=== PATIENT | male | born 1950 | race Two or more races ===

== ENCOUNTER 2024-10-20 11:05 | Inpatient (IN) | payer OTHER ==
[~2024-10-20] VITALS: Ht 172.7 cm; Wt 84.0 kg
[2024-10-20] VITALS (44 sets, daily range): BP systolic 118–184; BP diastolic 43–129; PULSE 63–100; RESP 9–21; TEMP 97.6–98.2; O2SAT 90–100
--- NOTE | 2024-10-20 11:26 | ED.PDOC ---
History of Present Illness HPI Comments 74 y/o M, with a history of cholelithiasis, DM, and noncompliance with medications, is BIBA from private residence for c/c nonradiating, left sided chest pain. Per EMS report, patient endorses on sudden, unprovoked, and atraumatic onset of pressure-like pain, while performing daily yard work, this morning. Patient is stated to have then enter his home and taken 1x ASA prior to calling EMS. Patient was found hypertensive and hyperglycemic, with a blood glucose of 305, on scene and found multiple times in STEMI via environmental monitoring technician en route. Patient received an 2x additional dosages of ASA and 1x NTG by EMS personnel prior to arrival. No endorsement of any recent stressors, additional strenuous activities, sick contacts, or additional pertinent events or history. No reported shortness of breath, palpitations, nausea, vomiting, or further acute associated symptoms. Time Seen by MD: 11:05 Reviewed Notes: Nurses Notes, Body Shop Floorperson Notes, Medications, Allergies Allergies: Coded Allergies: NO KNOWN ALLERGIES (Unverified , 10/20/24) Information Source: Patient, Emergency Med Personnel Mode of Arrival: EMS Severity: Moderate Timing: Hours Duration: Since onset Prehospital treatment: 12 Lead EKG, Accucheck, ASA, Harness Rigger, NTG Past Medical History PAST MEDICAL HISTORY: DM, Gallstones Past Medical History (Other): noncompliance with medications All Other Systems: Reviewed and Negative (Comprehensive review of systems are negative unless otherwise stated in HPI) Physical Exam General Appearance: Moderate Distress HEENT: Normal ENT Inspection, Pharynx Normal, TMs Normal Neck: Full Range of Motion, Non-Tender, Normal, Normal Inspection Respiratory: Chest Non-Tender, Lungs Clear, No Accessory Muscle Use, No Respiratory Distress, Normal Breath Sounds Cardiovascular: No Edema, No JVD, No Murmur, No Gallop, Normal Peripheral Pulses, Regular Rate/Rhythm Breast Exam: Deferred Gastrointestinal: No Organomegaly, Non Tender, No Pulsatile Mass, Normal Bowel Sounds, Soft Genitalia: Deferred Pelvic: Deferred Rectal: Deferred Extremities: No calf tenderness, Normal capillary refill, Normal inspection, Normal range of motion, Non-tender, No pedal edema Musculoskeletal : Apperance: Normal Neurologic: Alert, interior mechanic II-XII nml as Tested, No Motor Deficits, Normal Affect, Normal Mood, No Sensory Deficits Cerebellar Function: NOT DONE Reflexes: NOT DONE Skin: Dry, Normal Color, Warm Peripheral Pulses: 3+ Radial (R), 3+ Radial (L) Lymphatic: No Adenopathy Was a procedure done? Was a procedure done?: No EKG EKG : Pulse Rate (adult): 72 [place]: Normal Block: None Hypertrophy: None ST: New, Ant, Infarct Differential Dx Considerations may include: SC, PE, ACS, URI, pneumonia, angina, anxiety, cholelithiasis, cholecystitis, gastritis, among others X-Ray, Labs, Meds, VS Vital Signs Date Time Temp Pulse Resp B/P (MAP) Pulse Ox O2 Delivery O2 Flow Rate FiO2 10/20/24 11:26 72 10/20/24 11:25 97.6 84 16 159/92 (114) 98 97.6 10/20/24 11:13 72 10/20/24 11:05 72 18 97 Room Air* 0 21 10/20/24 11:05 97.6 76 18 140/87 97 97.6 Lab Test 10/20/24 11:20 Range/Units White Blood Count 7.2 4.4-10.8 10^3/uL Red Blood Count 4.38 L 4.5-5.90 10^6/uL Hemoglobin 15.8 13.5-17.5 g/dL Hematocrit 44.8 41.0-53.0 % Mean Corpuscular Volume 102.1 H 80.0-100.0 fL Mean Corpuscular Hemoglobin 36.1 H 28.0-32.0 pg Mean Corpuscular Hemoglobin Concent 35.3 32.0-36.0 g/dL Red Cell Distribution Width 14.2 11.8-14.3 % Platelet Count 243 140-450 10^3/uL Mean Platelet Volume 7.6 6.9-10.8 fL Neutrophils (%) (Auto) 78.2 37.0-80.0 % Lymphocytes (%) (Auto) 13.8 10.0-50.0 % Monocytes (%) (Auto) 7.1 0.0-12.0 % Eosinophils (%) (Auto) 0.6 0.0-7.0 % Basophils (%) (Auto) 0.3 0.0-2.0 % Neutrophils # (Auto) 5.6 1.6-8.6 10 ^3/uL Lymphocytes # (Auto) 1.0 0.4-5.4 10 ^3/uL Monocytes # (Auto) 0.5 0-1.3 10 ^3/uL Eosinophils # (Auto) 0 0-0.8 10 ^3/uL Basophils # (Auto) 0 0-0.2 10 ^3/uL Nucleated Red Blood Cells 0.0 % Prothrombin Time 11.4 9.3-11.8 sec Prothrombin Time INR 1.08 0.9-1.15 Activated Partial Thromboplast Time 23.8 L 24.5-34.5 SEC Sodium Level 140 136-145 mmol/L Potassium Level 4.1 3.5-5.1 mmol/L Chloride Level 103 98-107 mmol/L Carbon Dioxide Level 24 20-31 mmol/L Anion Gap 13 5-15 Blood Urea Nitrogen 11 9-23 mg/dL Creatinine 1.05 0.700-1.30 mg/dL Glomerular Filtration Rate Calc 75 >90 mL/min BUN/Creatinine Ratio 10.5 10.0-20.0 Serum Glucose 284 H 74-106 mg/dL Calcium Level 9.1 8.7-10.4 mg/dL Magnesium Level 1.9 1.6-2.6 mg/dL Total Bilirubin 1.5 H 0.2-1.0 mg/dL Aspartate Amino Transferase (AST) 28 13-40 U/L Alanine Aminotransferase (ALT) 22 7-40 U/L Alkaline Phosphatase 81 46-116 U/L Troponin I High Sensitivity 45 </=54 ng/L Total Protein 6.5 5.7-8.2 g/dL Albumin 4.0 3.2-4.8 g/dL Current Medications Medications (Trade) Dose Ordered Sig/Phyllis Route Start Time Stop Time Status Last Admin Heparin Sodium (Porcine) 5,000 units ONCE ONCE IV 10/20/24 11:30 10/20/24 12:46 DC 10/20/24 11:39 Patient alert. Complaining of chest discomfort. Vitals stable. Answering questions. EKG reviewed does show STEMI. Was given heparin. Spoke with Cardiology. Was taken to circus laborer. [place] approved inpatient admission [id number]. Explained to the patient. Continue monitoring. Time of 1ST Reevaluation: 11:35 Reevaluation 1ST: Unchanged Patient Education/Counseling: Diagnosis, Treatment, Other Family Education/Counseling: No Family Present SEPSIS Sepsis Screen Physician Orders Chest Xray 1 View (10/20/24 11:10) Harness Rigger (10/20/24 11:16) Blood Pressure (10/20/24 11:16) Pulse Oximetry (10/20/24 11:16) Sodium Chloride Lock (Saline Lock Ns) (10/20/24 14:00) Electrocardigram (10/20/24 11:16) Aspirin Tablet (10/22/24 10:00) Oxygen Per Hour (10/20/24 11:16) Cardiac Rehabilitation - Outpa (10/20/24 ) Comprehensive Metabolic Panel (10/22/24 04:00) Troponin-I Hs (10/20/24 12:16) Troponin-I Hs (10/20/24 14:16) Vital Signs Date Time Temp Pulse Resp B/P (MAP) Pulse Ox O2 Delivery O2 Flow Rate FiO2 10/20/24 11:26 72 10/20/24 11:25 97.6 84 16 159/92 (114) 98 97.6 10/20/24 11:13 72 10/20/24 11:05 72 18 97 Room Air* 0 21 10/20/24 11:05 97.6 76 18 140/87 97 97.6 Laboratory Tests Test 10/20/24 11:20 White Blood Count 7.2 10^3/uL (4.4-10.8) Medications Medications Dose Ordered Sig/Phyllis Route Start Time Stop Time Status Last Admin Dose Admin Heparin Sodium (Porcine) 5,000 units ONCE ONCE IV 10/20/24 11:30 10/20/24 12:46 DC 10/20/24 11:39 Departure 1 Departure Time of Disposition: 11:31 Impression: Primary Impression: STEMI (ST elevation myocardial infarction) Qualified Codes: I21.3 - ST elevation (STEMI) myocardial infarction of unspecified site Disposition: ADMITTED INPATIENT Admit to: ICU Condition: Guarded Critical Care Note Critical Care Time?: Yes (45 min-critical care time only) Stability Stability form required: No Heart Score Heart Score: Heart Score Response (Comments) Value History Highly Suspicious [address]-Deviation 2 Age >65 2 Risk Factors 1 or 2 risk factors 1 Troponin N/A 0 Total 7 I personally scribed for SAMI OCHOA MD ([email or web address]) on 10/20/24 at 11:26. Electronically submitted by Timothy Pemberton [email or web address]). SAMI OCHOA MD Oct 20, 2024 11:26
[2024-10-20] MEDS ORDERED: NITROGLYCERIN 0.4 MG SL TAB SL PRN (11:30)
[2024-10-20] MEDS ORDERED: SODIUM CHLORIDE 0.9% 1,000 ML IV SCH (11:30)
--- NOTE | 2024-10-20 11:35 | DVHHP2 ---
History of Present Illness Reason for Visit: STEMI History of Present Illness 74 y/o M, with a history of cholelithiasis, DM, and noncompliance with medications, is BIBA from private residence for c/c nonradiating, left sided chest pain. Per EMS report, patient endorses on sudden, unprovoked, and atraumatic onset of pressure-like pain, while performing daily yard work, this morning. Patient is stated to have then enter his home and taken 1x ASA prior to calling EMS. Patient was found hypertensive and hyperglycemic, with a blood glucose of 305, on scene and found multiple times in STEMI via air sampling and monitoring en route. Patient received an 2x additional dosages of ASA and 1x NTG by EMS personnel prior to arrival. No endorsement of any recent stressors, additional strenuous activities, sick contacts, or additional pertinent events or history. No reported shortness of breath, palpitations, nausea, vomiting, or further acute associated symptoms. Endocrine: Diabetes Past Surgical History: None Family History: None Smoke: No ALCOHOL: none Drugs: None Lives: with Family Domestic Violence: Neg Review of Systems Constitutional: Yes: Sweats Cardiovascular: Chest Pain Allergies: Coded Allergies: NO KNOWN ALLERGIES (Unverified , 10/20/24) Medications Current Medications Medications Dose Ordered Sig/Phyllis Route Start Time Stop Time Status Last Admin Dose Admin Sodium Chloride 10 ml Q8HR IV 10/20/24 14:00 UNV Aspirin 81 mg DAILY PO 10/22/24 10:00 UNV Exam Vital Signs Vital Signs Date Time Temp Pulse Resp B/P (MAP) Pulse Ox O2 Delivery O2 Flow Rate FiO2 10/20/24 11:26 74 General Appearance: Alert, Oriented X3, Cooperative, No acute distress HEENT: Atraumatic, PERRLA, Mucous membr. moist/pink Respiratory: Clear to auscultation, Normal air movement Cardiovascular: Normal S1, Normal S2, No murmurs, Other (ST elevation) Abdominal: Normal bowel sounds, Soft, No tenderness, No hepatospenomegaly, No masses Extremities: No clubbing, No cyanosis, No edema, Normal pulses, No tende rness/swelling Skin: No rashes, No breakdown Neuro: Normal gait, Normal speech, Strength at 5/5 X4 ext, Normal tone, Sensation intact, Cranial nerves 3-12 NL Psych/Mental Status: Mental status NL SEPSIS Sepsis Screen Physician Orders Chest Xray 1 View (9/6/25 11:10) Complete Blood Count (10/20/24 11:16) Comprehensive Metabolic Panel (10/20/24 11:16) Magnesium (10/20/24 11:16) Chest Portable (10/20/24 11:16) Guest Services Ambassador (10/20/24 11:16) Blood Pressure (10/20/24 11:16) Pulse Oximetry (10/20/24 11:16) Sodium Chloride Lock (Saline Lock Ns) (10/20/24 14:00) Aspirin Tablet (10/20/24 11:30) Electrocardigram (10/20/24 11:16) Aspirin Tablet (10/22/24 10:00) Oxygen Per Hour (10/20/24 11:16) Troponin-I Hs (10/20/24 11:16) Cardiac Rehabilitation - Outpa (10/20/24 ) Comprehensive Metabolic Panel (10/22/24 04:00) Troponin-I Hs (10/20/24 12:16) Troponin-I Hs (10/20/24 14:16) Heparin Sodium (Porcine) (10/20/24 11:30) Vital Signs Date Time Temp Pulse Resp B/P (MAP) Pulse Ox O2 Delivery O2 Flow Rate FiO2 10/20/24 11:26 74 10/20/24 11:13 74 Assessment/Plan Assessment/Plan STEMI--patient presents to ED via EMS with chief complaint of chest pain that started this morning while working in the backyard Upon evaluation patient states started off as a cold sweat then progressed to chest pain Patient denied previous cardiac history/workup Patient states history of type 2 DM but is currently not taking any medications ER physician spoke to Dr. 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 Total critical care time spent 32 minutes to evaluate, review labs and discussion of plan Discussed plan of care with the patient in which all questions concerns have been addressed Plan discussed with: Patient Date of Service: Oct 20, 2024 Billing Provider: DMITRY CHAUHAN Common Visit Codes: 34450-[id number] INP/OBS CARE (HIGH), [id number] CARE 30- 74 MIN DMITRY CHAUHAN VP CARDIOVASCULAR SERVICE LINE Oct 20, 2024 11:35
[2024-10-20] MEDS: HEPARIN IN NS 1000Units/500mL 1,500 ML ONE (11:39)
[2024-10-20] MEDS: HEPARIN SODIUM (PORCINE) 5000 UNITS/ML 1ML VIAL IV ONE ×2 (11:39→13:30)
[2024-10-20] MEDS: LIDOCAINE 2%HCL (LOCAL ANESTH.) INJ 20ML MDV ONE (11:39)
[2024-10-20] MEDS: IODIXANOL 320MG/ML 100ML BTL IV ONE (11:39)
[2024-10-20] MEDS: ANGIOMAX 250 MG VIAL IV ONE ×2 (11:43→12:22)
[2024-10-20] MEDS: MIDAZOLAM HCL 2MG/2ML 2ml VIAL (1mg/ml) ONE (11:44)
[2024-10-20] MEDS: fentaNYL CITRATE 100 MCG/2 ML VL ONE (11:44)
[2024-10-20] MEDS: SODIUM CHL 0.9% 50 ML ONE ×2 (11:44→12:22)
--- NOTE | 2024-10-20 11:52 | DVH ---
XY CHEST XRAY 1 VIEW, HISTORY: CHEST PAIN COMPARISON: None None TECHNICAL DATA: 1 view of the chest was obtained. FINDINGS: Lines and tubes: None Cardiomediastinal silhouette: normal Pulmonary vasculature: normal Lung expansion: normal Lung airspace: normal Lung interstitium: normal Pleura: normal Pneumothorax: no Bones: Unremarkable Other: no IMPRESSION: No acute intrathoracic abnormality.
[2024-10-20 11:57] LABS: Hemoglobin 15.8 g/dL (13.5-17.5); Mean Corpuscular Hemoglobin 36.1 pg (28.0-32.0); Nucleated Red Blood Cells % 0.0 %
[2024-10-20 11:59] LABS: Hematocrit 44.8 % (41.0-53.0); Mean Corpuscular Volume 102.1 fL (80.0-100.0)
[2024-10-20 12:13] LABS: Alanine Aminotransferase 22 U/L (7-40); Albumin 4.0 g/dL (3.2-4.8); Alkaline Phosphatase 81 U/L (46-116); Anion Gap 13 (5-15); BUN/Creatinine Ratio 10.5 (10.0-20.0); Blood Urea Nitrogen 11 mg/dL (9-23); Calcium 9.1 mg/dL (8.7-10.4); Carbon Dioxide 24 mmol/L (20-31); Chloride 103 mmol/L (98-107); Magnesium 1.9 mg/dL (1.6-2.6); Potassium 4.1 mmol/L (3.5-5.1); Sodium 140 mmol/L (136-145); Total Protein 6.5 g/dL (5.7-8.2)
[2024-10-20 12:15] LABS: Bilirubin, Total 1.5 mg/dL (0.2-1.0); Glucose 284 mg/dL (74-106)
[2024-10-20] MEDS: EPTIFIBATIDE INJ (2MG/ML) 10ML VIAL IV ONE (12:26)
[2024-10-20] MEDS: NOREPINEPHRINE 8 MG/250ML KIT 250 ML IV ONE (12:32)
[2024-10-20] MEDS: HEPARIN DRIP/D5W 100UNITS/ML 250 ML IV ONE (12:59)
[2024-10-20] MEDS: TICAGRELOR 90 MG TAB ONE (13:16)
[2024-10-20] MEDS: EPTIFIBATIDE DRIP(0.75MG/ML) 100 ML IV ONE (13:23)
[2024-10-20] MEDS: EPTIFIBATIDE DRIP(0.75MG/ML) 100 ML IV SCH (13:30)
[2024-10-20] MEDS ORDERED: HEPARIN DRIP/D5W 100UNITS/ML 250 ML IV SCH (13:30)
[2024-10-20 13:55] LABS: INR 1.08 (0.9-1.15); Partial Thromboplastin Time 23.8 SEC (24.5-34.5); Prothrombin Time 11.4 sec (9.3-11.8)
[2024-10-20] MEDS ORDERED: DEXTROSE (50%) 50ML SYRG IV PRN (14:00)
[2024-10-20] MEDS: HEPARIN DRIP/D5W 100UNITS/ML 250 ML IV SCH (14:00)
[2024-10-20] MEDS: SODIUM CHLOR 0.9% PF (SALINE LOCK) 10ML VIAL/SYR IV SCH (14:27)
--- NOTE | 2024-10-20 14:41 | DVH ---
CHEST RADIOGRAPH Indication: Balloon pump placement Technique: Single frontal view of the chest was obtained Comparison: XY CHEST XRAY 1 VIEW on DOS: 10/20/24 FINDINGS: Lines and Tubes: None Lungs: No focal consolidation. Pleura: No effusion. No pneumothorax. Cardiomediastinal contours: Unremarkable Bones: No acute osseous abnormality. IMPRESSION: No acute cardiopulmonary disease. Balloon pump in proper position
[2024-10-20 15:50] LABS: Urine Protein, UAD 1+ (Negative)
[2024-10-20] MEDS: ONDANSETRON HCL 4 MG/2 ML VIAL IV PRN (16:04)
[2024-10-20] MEDS: ACCU-CHEK COMFORT CURVE STRIP VI SCH (17:00)
[2024-10-20] MEDS: InsuLIN REG 1unit/0.01ml Soln (100units/ml) SC SCH ×2 (18:00→22:00)
[2024-10-20] MEDS: LABETALOL HCL 20 MG/4 ML VL IV PRN (18:02)
[2024-10-20] MEDS: ACETAMINOPHEN 325 MG TAB PO PRN (19:56)
[2024-10-20] MEDS: ATORVASTATIN 20 MG TAB PO SCH (21:46)
[2024-10-20] MEDS: TICAGRELOR 90 MG TAB PO SCH (21:46)
[2024-10-20] MEDS: LISINOPRIL 5 MG TAB PO SCH (21:47)
[2024-10-20] MEDS ORDERED: ZOLPIDEM TARTRATE 5 MG TAB PO PRN (22:00)
[2024-10-20] MEDS: METOPROLOL TARTRATE 25 MG TAB PO SCH (23:07)
--- NOTE | 2024-10-20 23:48 | DVHINCON2 ---
Date of service: Oct 20, 2024 Referring Physician Dena Reason for Consultation STEMI History of Present Illness This is a 74 year old male with a past medical history of cholelithiasis, DM, and noncompliance with medications who was brought in by ambulance with complaints of nonradiating, left sided chest pain. Per EMS report, patient endorses on sudden, unprovoked, and atraumatic onset of pressure-like pain, while performing his daily yard work, this morning. Patient is stated to have went inside taken 1 Aspirin prior to calling EMS. Patient was found on scene to be hypertensive and hyperglycemic, with a blood glucose of 305, on scene and found multiple times in STEMI via rn cardiac cath en route. Patient received 2 additional dosages of Aspirin and 1 Nitroglycerin by EMS personnel prior to arr ival. EKG onfiremd STEMI and code STEMI was called. I evaluated the patient at bedside within a few minutes. CBC abd BMP are WNL. Troponin 45. Chest x-ray shows NAD. Patient was admitted to the hospital. I am asked to consult on this patient. Family History: Patient reports no known family medical history. Allergies: Coded Allergies: NO KNOWN ALLERGIES (Unverified , 10/20/24) Current Medications Current Medications Medications (Trade) Dose Ordered Sig/Phyllis Route PRN Reason Start Time Stop Time Status Last Admin Sodium Chloride (Saline Lock Ns) 10 ml Q8HR IV 10/20/24 14:00 10/20/24 22:00 Aspirin 81 mg DAILY PO 10/22/24 10:00 Cancel Sodium Chloride 1,000 ml @ 100 mls/hr Q10H IV 10/20/24 11:30 10/20/24 14:37 DC Ondansetron HCl (Zofran) 4 mg Q4HP PRN IV NAUSEA / VOMITING 10/20/24 11:30 10/20/24 16:04 Acetaminophen (Tylenol Tablet) 650 mg Q6HP PRN PO PAIN SCALE 1-3 OR TEMP>100.4 10/20/24 11:30 10/20/24 19:56 Nitroglycerin (Ntrostat Sublingual) 0.4 mg Q5MINP PRN SL FOR CHEST PAIN 10/20/24 11:30 Morphine Sulfate 2 mg Q30M PRN IV FOR CHEST PAIN 10/20/24 11:30 Eptifibatide 100 ml @ 13 mls/hr Q7H42M IV 10/20/24 13:30 10/20/24 19:59 Heparin Sodium/ Dextrose 250 ml @ 10.08 mls/ hr Q24H IV 10/20/24 13:30 10/20/24 13:55 DC Metoprolol Tartrate (Lopressor Tablet) 25 mg BID PO 10/20/24 22:00 10/20/24 23:07 Ticagrelor (Brilinta) 90 mg BID PO 10/20/24 22:00 10/20/24 21:46 Aspirin 81 mg DAILY PO 10/21/24 10:00 Diagnostic Test (Pha) (Accu-Chek Comfort Curve T) 1 strip ACHS 10/20/24 17:00 10/20/24 22:00 Insulin Human Regular (InsuLIN R) HS SC 10/20/24 22:00 10/20/24 22:00 Insulin Human Regular (InsuLIN R) AC SC 10/20/24 17:00 10/20/24 18:00 Dextrose 50 ml UD PRN IV Blood Sugar LESS THAN 60 10/20/24 14:00 Atorvastatin Calcium (Lipitor) 80 mg HS PO 10/20/24 22:00 10/20/24 21:46 Heparin Sodium/ Dextrose 250 ml @ 5 mls/hr Q24H IV 10/20/24 14:00 10/20/24 14:00 Pantoprazole Sodium (Protonix) 40 mg DAILY IV 10/21/24 10:00 Lisinopril (Zestril Tablet) 5 mg BID PO 10/20/24 22:00 10/20/24 21:47 Labetalol HCl (Labetalol HCl) 10 mg Q2HPRN PRN IV SBP>150 10/20/24 14:45 10/20/24 18:02 Zolpidem Tartrate (Ambien) 5 mg HSPRN PRN PO FOR INSOMNIA 10/20/24 22:00 Review of Systems All Other Systems: Reviewed and Negative (Comprehensive review of systems are negative unless otherwise stated in HPI) Vital Signs Vital Signs Date Time Temp Pulse Resp B/P (MAP) Pulse Ox O2 Delivery O2 Flow Rate FiO2 10/20/24 23:07 72 135/60 10/20/24 22:00 18 96 Room Air* 0 21 10/20/24 19:15 98.2 98.2 Physical Exam GENERAL: Alert and oriented x 3. No acute distress. EYES: PERRL, EOMI. Anicteric. HENT: Moist mucous membranes. LUNGS: Clear to auscultation bilaterally. CARDIOVASCULAR: Regular rate and rhythm. ABDOMEN: Soft, nontender and nondistended. EXTREMITIES: No edema. NEUROLOGIC: No focal neurological deficits. SKIN: Warm, dry. Labs/Diagnostic Data Labs Test 10/20/24 21:49 10/20/24 15:27 10/20/24 11:20 Range/Units POC Glucose 261 H 70-106 mg/dl Urine Color Light-yellow Yellow Urine Clarity Clear Clear Urine pH 5.5 5.0-9.0 Urine Specific Coin 1.046 H 1.001-1.035 Urine Protein 1+ H Negative Urine Ketones 2+ H Negative Urine Blood 3+ H Negative /uL Urine Nitrite Negative Negative Urine Bilirubin Negative Negative Urine Urobilinogen Normal Negative mg/dL Urine Leukocyte Esterase Negative Negative /uL Urine RBC 11 0 - 3 /hpf Urine Microscopic WBC 1 0-3 /HPF Urine Squamous Epithelial Cells None seen <5 /hpf Urine Bacteria None seen None Seen /hpf Urine Hyaline Casts Few 0 - 2 /lpf Urine Glucose 4+ H Normal mg/dL White Blood Count 7.2 4.4-10.8 10^3/uL Red Blood Count 4.38 L 4.5-5.90 10^6/uL Hemoglobin 15.8 13.5-17.5 g/dL Hematocrit 44.8 41.0-53.0 % Mean Corpuscular Volume 102.1 H 80.0-100.0 fL Mean Corpuscular Hemoglobin 36.1 H 28.0-32.0 pg Mean Corpuscular Hemoglobin Concent 35.3 32.0-36.0 g/dL Red Cell Distribution Width 14.2 11.8-14.3 % Platelet Count 243 140-450 10^3/uL Mean Platelet Volume 7.6 6.9-10.8 fL Neutrophils (%) (Auto) 78.2 37.0-80.0 % Lymphocytes (%) (Auto) 13.8 10.0-50.0 % Monocytes (%) (Auto) 7.1 0.0-12.0 % Eosinophils (%) (Auto) 0.6 0.0-7.0 % Basophils (%) (Auto) 0.3 0.0-2.0 % Neutrophils # (Auto) 5.6 1.6-8.6 10 ^3/uL Lymphocytes # (Auto) 1.0 0.4-5.4 10 ^3/uL Monocytes # (Auto) 0.5 0-1.3 10 ^3/uL Eosinophils # (Auto) 0 0-0.8 10 ^3/uL Basophils # (Auto) 0 0-0.2 10 ^3/uL Nucleated Red Blood Cells 0.0 % Prothrombin Time 11.4 9.3-11.8 sec Prothrombin Time INR 1.08 0.9-1.15 Activated Partial Thromboplast Time 23.8 L 24.5-34.5 SEC Sodium Level 140 136-145 mmol/L Potassium Level 4.1 3.5-5.1 mmol/L Chloride Level 103 98-107 mmol/L Carbon Dioxide Level 24 20-31 mmol/L Anion Gap 13 5-15 Blood Urea Nitrogen 11 9-23 mg/dL Creatinine 1.05 0.700-1.30 mg/dL Glomerular Filtration Rate Calc 75 >90 mL/min BUN/Creatinine Ratio 10.5 10.0-20.0 Serum Glucose 284 H 74-106 mg/dL Calcium Level 9.1 8.7-10.4 mg/dL Magnesium Level 1.9 1.6-2.6 mg/dL Total Bilirubin 1.5 H 0.2-1.0 mg/dL Aspartate Amino Transferase (AST) 28 13-40 U/L Alanine Aminotransferase (ALT) 22 7-40 U/L Alkaline Phosphatase 81 46-116 U/L Troponin I High Sensitivity 45 </=54 ng/L Total Protein 6.5 5.7-8.2 g/dL Albumin 4.0 3.2-4.8 g/dL Assessment STEMI. DM. Medical noncompliance. Plan/Recommendation I agree with your ongoing assessment and care of plan. Emergent cardiac cath. Risks and benefits were discussed with the patient. Aspirin, Lipitor, Metoprolol. Heparin drip per pharmacy. IV Labetalol for SBP > 150. Lisinopril. Morphine for pain management. GI prophylactics. Additional plan as per the hospital course. Critical care time of 90 minutes provided to include time spent evaluation of patient at bedside, when appropriate patient/family education for diagnosis, treatment plan, review of pertinent medical information and discussion of care with specialty providers and PCP. Plan discussed with: Patient DIDI SWANSON MD Oct 20, 2024 23:21
[2024-10-21] VITALS (96 sets, daily range): BP systolic 107–167; BP diastolic 36–88; PULSE 6–82; RESP 9–21; TEMP 97.4–98.1; O2SAT 86–100
[2024-10-21] MEDS: PANTOPRAZOLE 40 MG/10 ML VIAL INJ IV SCH (00:45)
[2024-10-21] MEDS: MORPHINE SULFATE INJ 2 MG/ml SYRG IV PRN ×2 (00:46→12:30)
[2024-10-21 04:09] LABS: Hematocrit 43.9 % (41.0-53.0); Hemoglobin 15.9 g/dL (13.5-17.5); Mean Corpuscular Hemoglobin 36.4 pg (28.0-32.0); Mean Corpuscular Volume 100.8 fL (80.0-100.0); Nucleated Red Blood Cells % 0.0 %
[2024-10-21 04:11] LABS: Chloride 102 mmol/L (98-107); Potassium 4.0 mmol/L (3.5-5.1); Sodium 136 mmol/L (136-145)
[2024-10-21 04:12] LABS: Anion Gap 8 (5-15); Calcium 9.3 mg/dL (8.7-10.4); Carbon Dioxide 26 mmol/L (20-31)
[2024-10-21 04:16] LABS: INR 1.11 (0.9-1.15); Partial Thromboplastin Time 31.3 SEC (24.5-34.5); Prothrombin Time 11.6 sec (9.3-11.8)
[2024-10-21 04:17] LABS: BUN/Creatinine Ratio 17.7 (10.0-20.0); Blood Urea Nitrogen 17 mg/dL (9-23)
[2024-10-21 04:18] LABS: Magnesium 2.0 mg/dL (1.6-2.6)
[2024-10-21 04:44] LABS: Glucose 228 mg/dL (74-106)
--- NOTE | 2024-10-21 05:40 | DVHOP ---
DATE OF SURGERY: 10/20/2024 TECHNIQUES PERFORMED: * Insertion of the 6-Trinidadian arterial line from the right femoral artery. * Under fluoroscopic guidance, code STEMI. * Management of conscious sedation. * Left coronary angiography. * Mechanical thrombectomy of the left anterior descending artery with the help of the Hines catheter. * Balloon angioplasty of the proximal region of the left anterior descending artery with 2.5 x 15 mm length semi-compliant balloon. * Balloon angioplasty of the left anterior descending artery in the proximal, mid, and distal region with 2.5 x 25 mm length semi-compliant balloon. * Stenting and angioplasty of the proximal region of the left anterior descending artery with 3.0 x 22 mm in length [place] drug-eluting stent of [employer]. * Intravascular ultrasound of the left main and also the left anterior descending artery. * Balloon angioplasty of the left anterior descending artery proximal stent with 3.0 x 15 mm length and noncompliant balloon and mid artery size to 3.30 mm in size. * Intracoronary administration of 10 mL of Integrilin and intracoronary administration of the multiple doses of the nicardipine and the nitroglycerin. * Emergency placement of the intra-aortic balloon pump under fluoroscopic guidance and supervision. COMPLICATIONS: None. ASSISTANTS: Assisted by Adrienne Nuñez Joshua and Rani. INDICATIONS: * The patient has a code STEMI, acute anterior wall myocardial infarction. * 100% occlusion of the left anterior descending artery in the proximal region, JEREMY grade 0 flow. DESCRIPTION OF PROCEDURE: The risks and benefits all have been explained to the patient and understood very well. We have changed the 6-Trinidadian short arterial line to long 6-Trinidadian arterial line. Initially, we have put the guiding catheter XB 3.5, unable to engage it. Subsequently, we put a XB 4, unable to engage it. Subsequently, now we have put a 6-Trinidadian 4.5 guiding catheter and the left coronary angiography also has been done in a standard manner. Subsequently, the patient was started on Angiomax and then we passed a Runthrough wire. After putting the Runthrough wire, the Hines catheter thrombectomy was done a few times. About 20 mL of blood was aspirated. The artery did not open up after doing the mechanical thrombectomy. Subsequently, the balloon 2.5 x 15 mm length semi-compliant balloon was passed and a balloon angioplasty was done in the proximal region of the left anterior descending artery, but it was not able to restore the blood flow. Subsequently, 2.5 x 25 mm length of long semi-compliant balloon was passed and the balloon angioplasty was done in the proximal, mid, and distal region of the left anterior descending artery by taking the balloon gradually up to 8 and 9 and to 13 atmosphere. Balloon had been discontinued and angiography was done and blood flow in the left anterior descending artery had been restored very well. Now, we put a 3.0 x 22 mm in length [place] drug-eluting stent of [employer] deployed from the proximal to mid region of the left anterior descending artery and gradually it had been taken up to the 13 atmosphere. Inflated for 21 seconds x2 and the balloon had been deflated and angiography was done and the result was satisfactory. Subsequently, intravascular ultrasound also had been done. After doing the intravascular ultrasound, we noted that we need to still slightly expand the stent. So meanwhile, the patient was given intracoronary 10 mL of the Integrilin. The patient was given nicardipine, nitroglycerin, and subsequently the noncompliant balloon was passed and a balloon angioplasty was done in the proximal, mid, and distal region of the stent, taken the balloon up to the 27 atmosphere. The whole artery site was made to 3.30 mm in size and the procedure went very well. Subsequently, the balloon wire all had been discontinued. the patient is completely pain free. During this procedure, it has been noted that the patient's blood pressure was dropping down, so I had to put him on the Levophed drip. The decision has been made to put a balloon pump because currently the patient is dependent on the Levophed and it was a proximal left anterior descending artery, which was difficult to do the intervention. Now, subsequently, the 6-Trinidadian arterial line had been exchanged to the 8-Trinidadian arterial line and the intra-aortic balloon pump has been passed. After putting the balloon pump, intercostal space and had been sensing and capturing very well. The procedure was done under fluoroscopy. Arterial line had been. The balloon pump has been connected to the intra-aortic balloon pump line also. It will put to 1:1 augmentation. The lines had been sutured. CONCLUSION: The left anterior descending artery proximally 100% acutely occluded, JEREMY grade 0 flow and post procedure is JEREMY grade 3 flow, 100% widely open. No spasm. No dissection. No thrombosis. PLAN OF ACTION: At this time, * Aspirin. * Brilinta 90 mg b.i.d. * Metoprolol. * Lipitor. * Diabetes control. After discussion with the patient and his , to the patient. Yazmin Haddad MD MP/ROSALVA/SARINA TID: [id number] RECEIPT: [id number] MTDD
--- NOTE | 2024-10-21 05:44 | DVH ---
CHEST RADIOGRAPH Indication: IABP Technique: Single frontal view of the chest was obtained Comparison: XY CHEST XRAY 1 VIEW on DOS: 10/20/24, XY CHEST XRAY 1 VIEW on DOS: 10/20/24 IMPRESSION: Intra-aortic balloon pump radiopacity in the region of the aortic arch. The heart appears enlarged. The lungs appear clear without focal airspace opacity, effusion, or pneumothorax.
--- NOTE | 2024-10-21 05:44 | DVHOP ---
DATE OF SURGERY: 10/20/2024 TECHNIQUE PERFORMED: * Code STEMI. * Insertion of a 6-[place]an long arterial line in the right femoral artery under fluoroscopy. * Left heart cath. * Left ventriculogram. * [place] selective left and right coronary artery angiography. COMPLICATIONS: None. ASSISTANTS: Adrienne Nuñez Joshua and Belle. INDICATIONS: Acute anterior wall myocardial infarction, post STEMI. DESCRIPTION OF PROCEDURE: Risks and benefits were discussed had been explained, seen urgently, within 15 minutes. Risks, benefits, and alternatives all had been explained to the patient. The patient had been urgently brought to the tin can laborer. The right groin was shaved, was cleaned with soap and Betadine. IV Versed and fentanyl were given. A 6-Venezuelan arterial line also had been placed in a standard manner. We have put JR4 catheter and the right coronary angiography was done and subsequently at the end of the procedure, the left ventriculogram was done in the CABRERA view with total of 20 mL of dye. Post LV gram, left ventricular angiography had been performed. With the help of the JL4.5, 6-[place]enezuelan guiding catheter, the left coronary angiography was done. IMPRESSION: * Normal left main. * Left anterior descending artery proximally is 100% acutely blocked. JEREMY grade 0 flow. * Circumflex and obtuse marginal arteries all have been normal. * The right coronary artery is a very large dominant artery and the posterior descending artery is smaller. The branch is normal. * The posterolateral branch is a very large branch, 99% block has been noted in its mid region. The left ventricular ejection fraction is in the range of 35%. There is a remarkable hypokinesis of the whole anterior wall, apical wall, apical inferior wall, slightly dilated left ventricle. PLAN OF ACTION: Advised to undergo the intervention on the left anterior descending artery. Yazmin Haddad MD MP/RHIANNON/AMI TID: [id number] RECEIPT: [id number] JACOBO
[2024-10-21] MEDS: INSULIN LISPRO (HUMAN) 100 UNITS/ML ML SC SCH ×3 (06:52→21:35)
[2024-10-21] MEDS: ACCU-CHEK COMFORT CURVE STRIP VI SCH (06:53)
[2024-10-21] MEDS ORDERED: INSULIN LISPRO (HUMAN) 100 UNITS/ML ML SC SCH ×2 (07:00)
[2024-10-21] MEDS ORDERED: PANTOPRAZOLE 40 MG/10 ML VIAL INJ IV SCH (10:00)
--- NOTE | 2024-10-21 10:44 | DVHINCON2 ---
Date of service: Oct 21, 2024 History of Present Illness 74yo M w/ hx of cholelithiasis, type II DM, medication noncompliance who presented to hospital with chest pain. Upon EMS arrival pt found to have ST elevations in monitor technician. NTG and ASA administered en route. Patient also found to be hypertensive and hyperglycemic en route. Patient underwent LHC showing 100% proximal blockage of LAD. Plan for angioplasty. Past Medical History Problems Medical Problems: (1) STEMI (ST elevation myocardial infarction) Status: Acute Past Surgical History Past Surgical History Medical Problems: (1) STEMI (ST elevation myocardial infarction) Status: Acute Past Surgical History Medical Problems: (1) STEMI (ST elevation myocardial infarction) Status: Acute Family History: Patient reports no known family medical history. Allergies: Coded Allergies: NO KNOWN ALLERGIES (Unverified , 10/20/24) Current Medications Current Medications Medications (Trade) Dose Ordered Sig/Phyllis Route PRN Reason Start Time Stop Time Status Last Admin Sodium Chloride (Saline Lock Ns) 10 ml Q8HR IV 10/20/24 14:00 10/21/24 06:00 Aspirin 81 mg DAILY PO 10/22/24 10:00 Cancel Sodium Chloride 1,000 ml @ 100 mls/hr Q10H IV 10/20/24 11:30 10/20/24 14:37 DC Ondansetron HCl (Zofran) 4 mg Q4HP PRN IV NAUSEA / VOMITING 10/20/24 11:30 10/20/24 16:04 Acetaminophen (Tylenol Tablet) 650 mg Q6HP PRN PO PAIN SCALE 1-3 OR TEMP>100.4 10/20/24 11:30 10/20/24 19:56 Nitroglycerin (Ntrostat Sublingual) 0.4 mg Q5MINP PRN SL FOR CHEST PAIN 10/20/24 11:30 Morphine Sulfate 2 mg Q30M PRN IV FOR CHEST PAIN 10/20/24 11:30 Eptifibatide 100 ml @ 13 mls/hr Q7H42M IV 10/20/24 13:30 10/21/24 08:56 Heparin Sodium/ Dextrose 250 ml @ 10.08 mls/ hr Q24H IV 10/20/24 13:30 10/20/24 13:55 DC Metoprolol Tartrate (Lopressor Tablet) 25 mg BID PO 10/20/24 22:00 10/21/24 08:56 Ticagrelor (Brilinta) 90 mg BID PO 10/20/24 22:00 10/21/24 08:56 Aspirin 81 mg DAILY PO 10/21/24 10:00 10/21/24 08:56 Diagnostic Test (Pha) (Accu-Chek Comfort Curve T) 1 strip ACHS 10/20/24 17:00 10/21/24 00:47 DC 10/20/24 22:00 Insulin Human Regular (InsuLIN R) HS SC 10/20/24 22:00 10/21/24 00:22 DC 10/20/24 22:00 Insulin Human Regular (InsuLIN R) AC SC 10/20/24 17:00 10/21/24 00:22 DC 10/20/24 18:00 Dextrose 50 ml UD PRN IV Blood Sugar LESS THAN 60 10/20/24 14:00 Atorvastatin Calcium (Lipitor) 80 mg HS PO 10/20/24 22:00 10/20/24 21:46 Heparin Sodium/ Dextrose 250 ml @ 5 mls/hr Q24H IV 10/20/24 14:00 10/20/24 14:00 Pantoprazole Sodium (Protonix) 40 mg DAILY IV 10/21/24 10:00 10/21/24 00:22 DC Lisinopril (Zestril Tablet) 5 mg BID PO 10/20/24 22:00 10/21/24 08:57 Labetalol HCl (Labetalol HCl) 10 mg Q2HPRN PRN IV SBP>150 10/20/24 14:45 10/20/24 18:02 Zolpidem Tartrate (Ambien) 5 mg HSPRN PRN PO FOR INSOMNIA 10/20/24 22:00 Pantoprazole Sodium (Protonix) 40 mg BID IV 10/21/24 00:15 10/21/24 08:55 Morphine Sulfate 1 mg Q6HP PRN IV MODERATE PAIN (4-6 PAIN SCALE) 10/21/24 00:15 10/21/24 10:12 Insulin Human Lispro (HumaLOG) ACHS SC 10/21/24 07:00 Cancel Insulin Human Lispro (HumaLOG) ACHS SC 10/21/24 07:00 10/21/24 00:49 DC Diagnostic Test (Pha) (Accu-Chek Comfort Curve T) 1 strip ACHS 10/21/24 07:00 10/21/24 06:53 Insulin Human Lispro (HumaLOG) HS SC 10/21/24 22:00 Insulin Human Lispro (HumaLOG) AC SC 10/21/24 07:00 10/21/24 06:52 Review of Systems Negative except that which is stated in HPI Vital Signs Vital Signs Date Time Temp Pulse Resp B/P (MAP) Pulse Ox O2 Delivery O2 Flow Rate FiO2 10/21/24 10:15 6 10/21/24 10:12 14 143/88 10/21/24 10:00 96 Room Air* 0 21 10/21/24 08:00 97.7 97.7 Physical Exam Gen - no acute distress HEENT - no thyromegaly CV - RRR, no m/r/g Resp - CTAB Ext - no edema Labs/Diagnostic Data Labs Test 10/21/24 06:49 10/21/24 03:33 10/20/24 15:27 10/20/24 11:20 Range/Units POC Glucose 244 H 70-106 mg/dl White Blood Count 12.6 #H 4.4-10.8 10^3/uL Red Blood Count 4.35 L 4.5-5.90 10^6/uL Hemoglobin 15.9 13.5-17.5 g/dL Hematocrit 43.9 41.0-53.0 % Mean Corpuscular Volume 100.8 H 80.0-100.0 fL Mean Corpuscular Hemoglobin 36.4 H 28.0-32.0 pg Mean Corpuscular Hemoglobin Concent 36.1 H 32.0-36.0 g/dL Red Cell Distribution Width 14.2 11.8-14.3 % Platelet Count 239 140-450 10^3/uL Mean Platelet Volume 7.8 6.9-10.8 fL Neutrophils (%) (Auto) 88.7 H 37.0-80.0 % Lymphocytes (%) (Auto) 5.0 L 10.0-50.0 % Monocytes (%) (Auto) 6.3 0.0-12.0 % Eosinophils (%) (Auto) 0.0 0.0-7.0 % Basophils (%) (Auto) 0.0 0.0-2.0 % Neutrophils # (Auto) 11.2 H 1.6-8.6 10 ^3/uL Lymphocytes # (Auto) 0.6 0.4-5.4 10 ^3/uL Monocytes # (Auto) 0.8 0-1.3 10 ^3/uL Eosinophils # (Auto) 0 0-0.8 10 ^3/uL Basophils # (Auto) 0 0-0.2 10 ^3/uL Nucleated Red Blood Cells 0.0 % Prothrombin Time 11.6 9.3-11.8 sec Prothrombin Time INR 1.11 0.9-1.15 Activated Partial Thromboplast Time 31.3 24.5-34.5 SEC Sodium Level 136 136-145 mmol/L Potassium Level 4.0 3.5-5.1 mmol/L Chloride Level 102 98-107 mmol/L Carbon Dioxide Level 26 20-31 mmol/L Anion Gap 8 5-15 Blood Urea Nitrogen 17 9-23 mg/dL Creatinine 0.96 0.700-1.30 mg/dL Glomerular Filtration Rate Calc 84 >90 mL/min BUN/Creatinine Ratio 17.7 10.0-20.0 Serum Glucose 228 H 74-106 mg/dL Calcium Level 9.3 8.7-10.4 mg/dL Magnesium Level 2.0 1.6-2.6 mg/dL Urine Color Light-yellow Yellow Urine Clarity Clear Clear Urine pH 5.5 5.0-9.0 Urine Specific [place] 1.046 H 1.001-1.035 Urine Protein 1+ H Negative Urine Ketones 2+ H Negative Urine Blood 3+ H Negative /uL Urine Nitrite Negative Negative Urine Bilirubin Negative Negative Urine Urobilinogen Normal Negative mg/dL Urine Leukocyte Esterase Negative Negative /uL Urine RBC 11 0 - 3 /hpf Urine Microscopic WBC 1 0-3 /HPF Urine Squamous Epithelial Cells None seen <5 /hpf Urine Bacteria None seen None Seen /hpf Urine Hyaline Casts Few 0 - 2 /lpf Urine Glucose 4+ H Normal mg/dL Total Bilirubin 1.5 H 0.2-1.0 mg/dL Aspartate Amino Transferase (AST) 28 13-40 U/L Alanine Aminotransferase (ALT) 22 7-40 U/L Alkaline Phosphatase 81 46-116 U/L Troponin I High Sensitivity 45 </=54 ng/L Total Protein 6.5 5.7-8.2 g/dL Albumin 4.0 3.2-4.8 g/dL Assessment # STEMI # Type II DM with hyperglycemia # Coronary artery disease # HLD # HTN - Glargine 6 units daily - Lispro 2 units tidac - Moderate intensity SSI lispro tidac, qhs - POC BG tidac, qhs - Hypoglycemia protocol - Order A1c - Diabetic diet Plan discussed with: Patient SANTO EASLEY MD Oct 21, 2024 10:44
--- NOTE | 2024-10-21 11:13 | DVHPN2 ---
Subjective The patient is seen and examined at bedside. Complain of chest pain despite morphine. Reviewed: Care Plan, H&P, Labs, Medications, Previous Orders, Radiology Changes from previous H/P or p: No Changes Cardiovascular: Chest Pain Objective Vitals Vital Signs Date Time Temp Pulse Resp B/P (MAP) Pulse Ox O2 Delivery O2 Flow Rate FiO2 10/21/24 11:00 63 10/21/24 10:42 16 135/48 10/21/24 10:00 96 Room Air* 0 21 10/21/24 08:00 97.7 97.7 Intake/Output Intake and Output 10/21/24 07:00 Intake Total 1024 ml Output Total 1005 ml Balance 19 ml Intake Oral 705 ml IV Total 319 ml Output Urine Total 1005 ml General Appearance: Alert, Cooperative, mild distress HEENT: Atraumatic, PERRLA, EOMI, Mucous membr. moist/pink Neck: Supple Lungs: Clear to auscultation, Normal air movement Cardiovascular: Regular rate, Normal S1, Normal S2, No murmurs, Gallops, Rubs Abdomen: Normal bowel sounds, Soft, No tenderness Neuro: Cranial nerves 3-12 NL Psych/Mental Status: Mental status NL Medications Current Medications Medications Dose Ordered Sig/Phyllis Route Start Time Stop Time Status Last Admin Dose Admin Sodium Chloride 10 ml Q8HR IV 10/20/24 14:00 10/21/24 06:00 10 ML Aspirin 81 mg DAILY PO 10/22/24 10:00 Cancel Ondansetron HCl 4 mg Q4HP PRN IV 10/20/24 11:30 10/20/24 16:04 4 MG Acetaminophen 650 mg Q6HP PRN PO 10/20/24 11:30 10/20/24 19:56 650 MG Nitroglycerin 0.4 mg Q5MINP PRN SL 10/20/24 11:30 Morphine Sulfate 2 mg Q30M PRN IV 10/20/24 11:30 Eptifibatide 100 ml @ 13 mls/hr Q7H42M IV 10/20/24 13:30 10/21/24 08:56 13 MLS/HR Metoprolol Tartrate 25 mg BID PO 10/20/24 22:00 10/21/24 08:56 25 MG Ticagrelor 90 mg BID PO 10/20/24 22:00 10/21/24 08:56 90 MG Aspirin 81 mg DAILY PO 10/21/24 10:00 10/21/24 08:56 81 MG Dextrose 50 ml UD PRN IV 10/20/24 14:00 Atorvastatin Calcium 80 mg HS PO 10/20/24 22:00 10/20/24 21:46 80 MG Heparin Sodium/ Dextrose 250 ml @ 5 mls/hr Q24H IV 10/20/24 14:00 10/20/24 14:00 5 MLS/HR Lisinopril 5 mg BID PO 10/20/24 22:00 10/21/24 08:57 5 MG Labetalol HCl 10 mg Q2HPRN PRN IV 10/20/24 14:45 10/20/24 18:02 10 MG Zolpidem Tartrate 5 mg HSPRN PRN PO 10/20/24 22:00 Pantoprazole Sodium 40 mg BID IV 10/21/24 00:15 10/21/24 08:55 40 MG Morphine Sulfate 1 mg Q6HP PRN IV 10/21/24 00:15 10/21/24 10:12 1 MG Insulin Human Lispro ACHS NM 10/21/24 07:00 Cancel Diagnostic Test (Pha) 1 strip ACHS 10/21/24 07:00 10/21/24 06:53 1 STRIP Insulin Human Lispro HS NM 10/21/24 22:00 Insulin Human Lispro AC NM 10/21/24 07:00 10/21/24 06:52 6 UNITS Insulin Glargine 6 units DAILY@1000 NM 10/21/24 11:00 UNV Insulin Human Lispro 2 units AC NM 10/21/24 11:30 UNV Laboratory Results Laboratory Tests 10/21/24 03:33 Chemistry Test 10/20/24 11:20 10/21/24 03:33 Albumin 4.0 g/dL (3.2-4.8) Calcium Level 9.1 mg/dL (8.7-10.4) 9.3 mg/dL (8.7-10.4) Magnesium Level 1.9 mg/dL (1.6-2.6) 2.0 mg/dL (1.6-2.6) Total Protein 6.5 g/dL (5.7-8.2) Coagulation Test 10/20/24 11:20 10/21/24 03:33 Prothrombin Time 11.4 sec (9.3-11.8) 11.6 sec (9.3-11.8) Prothrombin Time INR 1.08 (0.9-1.15) 1.11 (0.9-1.15) Activated Partial Thromboplast Time 23.8 SEC (24.5-34.5) L 31.3 SEC (24.5-34.5) LFT Test 10/20/24 11:20 Alanine Aminotransferase (ALT) 22 U/L (7-40) Alkaline Phosphatase 81 U/L (46-116) Aspartate Amino Transferase (AST) 28 U/L (13-40) Total Bilirubin 1.5 mg/dL (0.2-1.0) H Urinalysis Test 10/20/24 15:27 Urine Color Light-yellow (Yellow) Urine Clarity Clear (Clear) Urine pH 5.5 (5.0-9.0) Urine Specific [place] 1.046 (1.001-1.035) Urine Protein 1+ (Negative) H Urine Ketones 2+ (Negative) H Urine Blood 3+ /uL (Negative) H Urine Nitrite Negative (Negative) Urine Bilirubin Negative (Negative) Urine Urobilinogen Normal mg/dL (Negative) Urine Leukocyte Esterase Negative /uL (Negative) Urine RBC 11 /hpf (0 - 3) Urine Microscopic WBC 1 /HPF (0-3) Urine Squamous Epithelial Cells None seen /hpf (<5) Urine Bacteria None seen /hpf (None Seen) Urine Hyaline Casts Few /lpf (0 - 2) Urine Glucose 4+ mg/dL (Normal) H Labs and/or images reviewed: Labs reviewed by me Assessment/Plan Assessment/Plan STEMI--patient presents to ED via EMS with chief complaint of chest pain that started this morning while working in the backyard Upon evaluation patient states started off as a cold sweat then progressed to chest pain Patient denied previous cardiac history/workup Patient states history of type 2 DM but is currently not taking any medications ER physician spoke to Dr. Kayden Haddad and confirmed STEMI Patient prepped for catheterization lab phlebotomist lab assistant team has been notified per protocol Continuing current management. The patient is status post cardiac catheterization. Continuing balloon pump. Continuing with anticoagulation medication. I am going to give the patient [place] 5/325 every 4 hours for breakthrough pain. Continuing with morphine. Critical care spent for this case is 35 minute. This medical document was created using an electronic medical record system with M[employer] direct computerized dictation system. Although this document has been carefully reviewed, there may still be some phonetic and typographical errors. These areas are purely typographical due to imperfections of the software programs, and do not reflect any compromise in the patient's medical care. Plan discussed with: Patient, Other (RN) Date of Service: Oct 21, 2024 Billing Provider: KALIE MACDONALD MD Common Visit Codes: [id number] CARE 30-74 MIN KALIE MACDONALD MD Oct 21, 2024 11:13
[2024-10-21] MEDS: INSULIN LANTUS (GLARGINE) 1 /0.01ml (100units/ml) SC SCH (12:13)
[2024-10-21] MEDS ORDERED: HYDROcodone-ACET 5/325MG TAB PO PRN (13:00)
--- NOTE | 2024-10-21 19:35 | DVHSR ---
APPROVED REPORT EXAM: Two-dimensional and M-mode echocardiogram with Doppler and color Doppler. Blood Pressure: 159/92 mmHg INDICATION STEMI RISK FACTORS Height: 5'8", Weight: 185 DIMENSIONS LVDd4.7 (3.8-5.7cm)LA (2D)4.0 (1.9-4.0cm)Aortic Root4.5 (2.0-3.7cm) LVDs3.4 (2.5-4.0cm)LA (MM) (1.9-4.0cm)Aortic Cusp Exc1.7 (1.5-2.0cm) EF (%) 45.0 (55-70%)Rt. Atrium3.8 (1.9-4.0cm)Asc. Aorta4.4 cm IVSd1.5 (0.7-1.1cm)RV (D)3.5 (1.8-2.4cm) PWd1.2 (0.7-1.1cm) Mitral Valve MitralMitral Stenosis E wave0.68m/sMV Mean GR.mmHg A wave0.85m/sMV Peak GR.mmHg E/A ratio0.82D MVAcm2 DECEL [id number] 1/2 Tim[place] Aortic Valve Aortic ValveAortic Stenosis V11.03m/Rubina Mean GR.2mmHg V21.13m/Rubina Peak GR.5mmHg LVOT Diameter2.1 (1.8-2.4cm)Doppler AVA3.16cm2 Pulmonic Valve V20.88m/s Tricuspid Valve TR Velocity2.90m/s [id number] Other Information Technically limited study due to Patient lying flat on balloon pump. Conclusion ENTIRE ANTERIOR WALL,LV APEX,DISTAL HALF OF IVS ARE REMARKABLY HYPOKINETIC LV EF IS 35% AND IS MODERATELY REDUCED NORMAL VALVES NORMAL RV FUNCTION NO EFFUSION
[2024-10-21] MEDS: EPTIFIBATIDE DRIP(0.75MG/ML) 100 ML IV ONE (22:19)
[2024-10-21] MEDS: EPTIFIBATIDE DRIP(0.75MG/ML) 100 ML IV SCH (22:59)
--- NOTE | 2024-10-21 23:03 | DVHPN2 ---
Progress Note - Dictate Date Seen: Oct 21, 2024 Medical Necessity Reason Pt with a Central, PICC or Fol: No Subjective Patient was seen and evaluated in follow-up in the ICU. Patient underwent left heart cath, [place] selective left and right coronary artery angiography, left coronary angiography, mechanical thrombectomy of the left anterior descending artery with the help of the [place] catheter, balloon angioplasty of the proximal region of the left anterior descending artery, balloon angioplasty of the left anterior descending artery, stenting and angioplasty of the proximal region of the left anterior descending artery, balloon angioplasty of the left anterior descending artery proximal stent, intracoronary administration of 10 mL of Integrilin and intracoronary administration of the multiple doses of the nicardipine and the nitroglycerin with emergency placement of the intra-aortic balloon pump under fluoroscopic guidance and supervision. WBC 12.6, GLUC 222. Chest x-ray shows intra-aortic balloon pump radiopacity in the region of the aortic arch. vital signs Vital Sign Date Time Temp Pulse Resp B/P (MAP) Pulse Ox O2 Delivery O2 Flow Rate FiO2 10/21/24 12:45 60 10/21/24 12:30 16 126/86 10/21/24 12:00 94 Room Air* 0 21 10/21/24 08:00 97.7 97.7 Total Intake and Output 10/20/24 10/20/24 10/21/24 15:00 23:00 07:00 Intake Total 31 ml 369 ml 624 ml Output Total 500 ml 505 ml Balance 31 ml -131 ml 119 ml medications Current Medications Medications Dose Ordered Sig/Phyllis Route Start Time Stop Time Status Last Admin Dose Admin Sodium Chloride 10 ml Q8HR IV 10/20/24 14:00 10/21/24 06:00 10 ML Aspirin 81 mg DAILY PO 10/22/24 10:00 Cancel Ondansetron HCl 4 mg Q4HP PRN IV 10/20/24 11:30 10/21/24 11:16 4 MG Acetaminophen 650 mg Q6HP PRN PO 10/20/24 11:30 10/20/24 19:56 650 MG Nitroglycerin 0.4 mg Q5MINP PRN SL 10/20/24 11:30 Morphine Sulfate 2 mg Q30M PRN IV 10/20/24 11:30 10/21/24 12:30 2 MG Eptifibatide 100 ml @ 13 mls/hr Q7H42M IV 10/20/24 13:30 10/21/24 08:56 13 MLS/HR Metoprolol Tartrate 25 mg BID PO 10/20/24 22:00 10/21/24 08:56 25 MG Ticagrelor 90 mg BID PO 10/20/24 22:00 10/21/24 08:56 90 MG Aspirin 81 mg DAILY PO 10/21/24 10:00 10/21/24 08:56 81 MG Dextrose 50 ml UD PRN IV 10/20/24 14:00 Atorvastatin Calcium 80 mg HS PO 10/20/24 22:00 10/20/24 21:46 80 MG Heparin Sodium/ Dextrose 250 ml @ 5 mls/hr Q24H IV 10/20/24 14:00 10/20/24 14:00 5 MLS/HR Lisinopril 5 mg BID PO 10/20/24 22:00 10/21/24 08:57 5 MG Labetalol HCl 10 mg Q2HPRN PRN IV 10/20/24 14:45 10/20/24 18:02 10 MG Zolpidem Tartrate 5 mg HSPRN PRN PO 10/20/24 22:00 Pantoprazole Sodium 40 mg BID IV 10/21/24 00:15 10/21/24 08:55 40 MG Morphine Sulfate 1 mg Q6HP PRN IV 10/21/24 00:15 10/21/24 10:12 1 MG Insulin Human Lispro ACHS [place] 10/21/24 07:00 Cancel Diagnostic Test (Pha) 1 strip ACHS 10/21/24 07:00 10/21/24 11:49 1 STRIP Insulin Human Lispro HS [place] 10/21/24 22:00 Insulin Human Lispro AC [place] 10/21/24 07:00 10/21/24 11:47 6 UNITS Insulin Glargine 6 units DAILY@1000 [place] 10/21/24 11:00 10/21/24 12:13 6 UNITS Insulin Human Lispro 2 units AC [place] 10/21/24 11:30 10/21/24 12:16 2 UNITS Acetaminophen/ Hydrocodone Bitart 1 tab Q4HPRN PRN PO 10/21/24 13:00 UNV objective GENERAL: Alert and oriented x 3. No acute distress. EYES: PERRL, EOMI. Anicteric. HENT: Moist mucous membranes. LUNGS: Clear to auscultation bilaterally. CARDIOVASCULAR: Regular rate and rhythm. ABDOMEN: Soft, nontender and nondistended. EXTREMITIES: No edema. NEUROLOGIC: No focal neurological deficits. SKIN: Warm, dry. laboratory and microbiology Laboratory Tests 10/21/24 03:33 Test 10/21/24 03:33 Range/Units Serum Glucose 228 H 74-106 mg/dL Problem List STEMI. DM. Medical noncompliance. Assessment/Plan Continued all current supportive medical care. Lisinopril. Aspirin, Metoprolol. GI prophylactics. Morphine for pain management. Additional plan as per the hospital course. Critical care time of 45 minutes provided to include time spent evaluation of patient at bedside, when appropriate patient/family education for diagnosis, treatment plan, review of pertinent medical information and discussion of care with specialty providers and PCP. Plan discussed with: Patient DIDI SWANSON MD Oct 21, 2024 13:39
[2024-10-22] VITALS (58 sets, daily range): BP systolic 103–153; BP diastolic 44–77; PULSE 52–88; RESP 9–24; TEMP 97.6–98.2; O2SAT 92–100
[2024-10-22 03:44] LABS: Hemoglobin 15.3 g/dL (13.5-17.5)
[2024-10-22 03:47] LABS: Hematocrit 41.8 % (41.0-53.0); Mean Corpuscular Hemoglobin 36.8 pg (28.0-32.0); Mean Corpuscular Volume 100.7 fL (80.0-100.0); Nucleated Red Blood Cells % 0.0 %
[2024-10-22 04:13] LABS: Albumin 4.0 g/dL (3.2-4.8); Alkaline Phosphatase 70 U/L (46-116); Anion Gap 9 (5-15); BUN/Creatinine Ratio 20.8 (10.0-20.0); Blood Urea Nitrogen 20 mg/dL (9-23); Calcium 9.3 mg/dL (8.7-10.4); Carbon Dioxide 28 mmol/L (20-31); Magnesium 2.0 mg/dL (1.6-2.6); Potassium 4.0 mmol/L (3.5-5.1); Total Protein 6.3 g/dL (5.7-8.2)
[2024-10-22 04:21] LABS: Alanine Aminotransferase 57 U/L (7-40); Bilirubin, Total 1.6 mg/dL (0.2-1.0); Chloride 98 mmol/L (98-107); Glucose 135 mg/dL (74-106); Sodium 135 mmol/L (136-145)
--- NOTE | 2024-10-22 05:17 | DVH ---
CHEST RADIOGRAPH Indication: BALLOON PUMP Technique: Single frontal view of the chest was obtained COMPARISON: XY CHEST PORTABLE on DOS: 10/21/24, XY CHEST XRAY 1 VIEW on DOS: 10/20/24, XY CHEST XRAY 1 EW on DOS: 10/20/24 FINDINGS: Lines and Tubes: Intra-aortic balloon pump is low in position at the level of the diaphragm. Lungs: Congestion Pleura: No effusion. No pneumothorax. Cardiomediastinal contours: Cardiomegaly Bones: Unremarkable IMPRESSION: Low position of the intra-aortic balloon pump. Clinical correlation advised.
--- NOTE | 2024-10-22 06:23 | DVHOP ---
DATE OF SURGERY: 10/20/2024 TECHNIQUE PERFORMED: * Emergency case. * Insertion of an 8-[place] arterial line from the right femoral artery. * Emergency placement of intra-aortic balloon pump. * Management of conscious sedation. COMPLICATIONS: None. ASSISTANTS: Assisted by Belle Nuñez Carmira and Josue. INDICATIONS: The patient has acute myocardial infarction anterior wall on levophed, early stages of cardiogenic shock. The procedure to be performed has been explained to the patient and he understands very well. DESCRIPTION OF PROCEDURE: In a standard manner, we have changed the 6-[place] arterial line to 8-[place] arterial line and then we have pulled an intra-aortic balloon pump. The intra-aortic balloon pump has been placed in a standard manner. It was at the second to the arterial line. Balloon pump line also put to 1:1 augmentation and the procedure went well. CONCLUSION: Successful placement of an intra-aortic balloon pump without any complication. Yazmin Haddad MD MP/RAMANA/SARAH/NAWAF TID: [id number] RECEIPT: [id number] [facility]
[2024-10-22] MEDS: LACTATED RINGER'S 1,000 ML IV SCH (06:36)
[2024-10-22] MEDS: LIDOCAINE 2% (LOCAL ANESTH.) PF 5ml SDV IJ ONE (07:15)
[2024-10-22] MEDS: MIDAZOLAM HCL 2MG/2ML 2ml VIAL (1mg/ml) IM ONE (07:15)
[2024-10-22] MEDS: MIDAZOLAM HCL 2MG/2ML 2ml VIAL (1mg/ml) ONE (07:43)
[2024-10-22] MEDS: LIDOCAINE 2% (LOCAL ANESTH.) PF 5ml SDV ONE (07:43)
[2024-10-22] MEDS: MORPHINE SULFATE INJ 2 MG/ml SYRG IV PRN (07:55)
--- NOTE | 2024-10-22 08:09 | DVHOP ---
DATE OF SURGERY: 10/22/2024 TECHNIQUE PERFORMED: * Removal of the intraaortic balloon pump. * Management of the conscious sedation. ASSISTANTS: Assisted by the nursing staff. COMPLICATIONS: None. DATE/TIME: Done at 7 o'clock in the morning on 10/22/2024. INDICATIONS: The patient's balloon pump has migrated. Now, he is getting hemodynamically very stable. DESCRIPTION OF PROCEDURE. The patient has been explained, giving informed consent. IV Versed was given 2 mg. Lidocaine was given locally and suture has been removed. Balloon pump has been removed under aseptic precaution under local anesthesia. After giving IV Versed, pressured applied for 20 minutes. The patient did well. There was no bleeding. There was no complication. CONCLUSION: Successful removal of intraaortic balloon pump. Yazmin Haddad MD MP/POLY TID: [id number] RECEIPT: [id number]
--- NOTE | 2024-10-22 08:17 | ECG ---
[facility] Test Date: 2024-10-21 Test Time: 12:42:30 Pat Name: NADIRA JIMÉNEZ Department: icu Room: [address] [place] [address] A Gender: M Sonar Technician: heather : 1950 Requested By: SAMI OCHOA Order Number: [id number] Reading MD: Jero Casillas Measurements Intervals [place] Rate: 64 P: -15 IA: 176 QRS: -37 QRSD: 100 T: 260 QT: 531 QTc: 548 Interpretive Statements Sinus rhythm Left axis deviation Anterior infarct, acute (LAD) Prolonged QT interval Baseline wander in lead(s) V1 Electronically Signed On 10-22-2024 10:13:49 PDT by Jero Casillas Please click the below link to view image of tracing.
--- NOTE | 2024-10-22 10:51 | DVHPN ---
DATE: 10/22/2024 The patient had been seen by the nursing staff. The patient's balloon pump has migrated down to the level of the diaphragm under local anesthesia. After giving IV Versed, balloon pump had been discontinued. The patient did well. The patient is pain-free. EKG is much better. The patient is recovering. DIAGNOSES: * Cardiogenic shock, acute massive anterior wall myocardial infarction. * Critical stenosis of the large posterolateral branch of the right coronary artery. * Hematuria. PLAN OF ACTION: At this time, discontinue the heparin, discontinue the Integrilin at this time, discontinue the Oscar catheter once and give some IV fluid today and have nursing staff to call me after 4 hours, then I will make further plan. Yazmin Haddad MD MP/RHIANNON/DOREEN TID: [id number] RECEIPT: [id number] MTDD
[2024-10-22 10:59] LABS: Triglycerides 72 mg/dL (< 150)
[2024-10-22 11:01] LABS: Cholesterol 166 mg/dL (< 200); HDL Cholesterol 57 mg/dL (40-59)
--- NOTE | 2024-10-22 13:12 | DVH ---
US KIDNEY HISTORY: Hematuria COMPARISON: None TECHNIQUE: Transverse and longitudinal grayscale and color doppler images were obtained of the kidney s and bladder. FINDINGS: Right kidney: Size: 10.7 cm Cortical thickness: Normal Echogenicity: Normal Stones: None Masses: None Hydronephrosis: None Ureters: Not well visualized. Other: None Left kidney: Size: 10.8 cm Cortical thickness: Normal Echogenicity: Normal Stones: None Masses: None Hydronephrosis: None Ureters: Not well visualized. Other: None Bladder: Not distended. Other: None. IMPRESSION: Unremarkable renal ultrasound.
--- NOTE | 2024-10-22 14:27 | DVHPNRES ---
Progress Note Date Seen: Oct 22, 2024 Resident Creating Document: MARK POLANCO RESIDENT Has the PT tested + for MRSA If YES, has PT been informed?: No Medical Necessity Reason Pt with a Central, PICC or Fol: No Subjective Review of Systems Patient seen and examined at bedside. Patient is currently status post stent placed in the LAD. Patient today went to the OR for intra-aortic balloon pump removal without complications. Patient is also pending for stent placement to the posterolateral branch of the RCA which we will be performed on Tuesday. Today, patient denies chest pain, shortness of breath, lower extremity swelling, fever/chills or any other associated symptoms. Patient is currently off pressors at this time and oxygen was turned off since saturation was above 97%. Patient does reports of mild to moderate lower back pain which could be due to posterior induced. Patient is currently on lispro sliding scale insulin and Lantus 6 units daily. Current hemoglobin A1c was 9.7% and blood glucose has been on 143. We will continue current medical therapy at this point and monitor blood glucose closely. ROS Constitutional: Denies weight loss, fever and chills. HEENT: Denies changes in vision and hearing. Respiratory: Denies shortness of breath and cough Cardiovascular: Denies chest discomfort or palpitations GI: Denies abdominal pain, nausea, vomiting and diarrhea. : Denies dysuria and urinary frequency. Musculoskeletal: Denies myalgias and joint pain Skin: Denies rash and pruritus. Neurological: Denies dizziness, headache, vision or hearing problems Objective vital signs Vital Sign Date Time Temp Pulse Resp B/P (MAP) Pulse Ox O2 Delivery O2 Flow Rate FiO2 10/22/24 12:00 61 10/22/24 12:00 19 98 Nasal Cannula* 2 28 10/22/24 10:30 125/62 10/22/24 03:00 97.7 97.7 Total Intake and Output 10/21/24 10/21/24 10/22/24 15:00 23:00 07:00 Intake Total 144 ml 1094 ml 183 ml Output Total 375 ml Balance 144 ml 719 ml 183 ml medications Current Medications Medications Dose Ordered Sig/Phyllis Route Start Time Stop Time Status Last Admin Dose Admin Sodium Chloride 10 ml Q8HR IV 10/20/24 14:00 10/22/24 06:00 10 ML Aspirin 81 mg DAILY PO 10/22/24 10:00 Cancel Ondansetron HCl 4 mg Q4HP PRN IV 10/20/24 11:30 10/21/24 11:16 4 MG Acetaminophen 650 mg Q6HP PRN PO 10/20/24 11:30 10/20/24 19:56 650 MG Nitroglycerin 0.4 mg Q5MINP PRN SL 10/20/24 11:30 Morphine Sulfate 2 mg Q30M PRN IV 10/20/24 11:30 10/21/24 12:30 2 MG Metoprolol Tartrate 25 mg BID PO 10/20/24 22:00 10/22/24 09:24 25 MG Ticagrelor 90 mg BID PO 10/20/24 22:00 10/22/24 09:24 90 MG Aspirin 81 mg DAILY PO 10/21/24 10:00 10/22/24 09:25 81 MG Dextrose 50 ml UD PRN IV 10/20/24 14:00 Atorvastatin Calcium 80 mg HS PO 10/20/24 22:00 10/21/24 21:34 80 MG Lisinopril 5 mg BID PO 10/20/24 22:00 10/21/24 21:34 5 MG Labetalol HCl 10 mg Q2HPRN PRN IV 10/20/24 14:45 10/20/24 18:02 10 MG Zolpidem Tartrate 5 mg HSPRN PRN PO 10/20/24 22:00 Pantoprazole Sodium 40 mg BID IV 10/21/24 00:15 10/22/24 09:24 40 MG Insulin Human Lispro ACHS [place] 10/21/24 07:00 Cancel Diagnostic Test (Pha) 1 strip ACHS 10/21/24 07:00 10/22/24 11:36 1 STRIP Insulin Human Lispro HS [place] 10/21/24 22:00 10/21/24 21:35 3 UNITS Insulin Human Lispro AC [place] 10/21/24 07:00 10/22/24 11:40 2 UNITS Insulin Glargine 6 units DAILY@1000 [place] 10/21/24 11:00 10/22/24 09:34 6 UNITS Insulin Human Lispro 2 units AC [place] 10/21/24 11:30 10/22/24 11:46 2 UNITS Acetaminophen/ Hydrocodone Bitart 1 tab Q4HPRN PRN PO 10/21/24 13:00 Eptifibatide 100 ml @ 13 mls/hr Q7H42M IV 10/21/24 22:30 10/22/24 06:41 13 MLS/HR Lactated Ringer's 1,000 ml @ 75 mls/hr [id number] IV 10/22/24 06:15 10/22/24 06:36 75 MLS/HR Examination Physical Examination General: Patient alert and oriented in person, place and time. Patient following commands. HEENT: Normocephalic, atraumatic, moist mucous membranes Respiratory/pulmonary: Clear lungs bilaterally, vesicular murmurs present in almost all lung poon, no associated crackles or wheezes. Cardiovascular: Normal heart sounds S1 and S2 with no associated murmurs Abdomen: Abdomen nondistended, there is no pain to palpation in any of the abdominal quadrants, no palpable masses. Extremities: There is no peripheral edema present at the lower extremities. Skin: No rashes or pruritus, there is no sacral edema present at this time. Neurological: Intact cranial nerves with no focal neurologic deficits laboratory and microbiology Laboratory Tests 10/22/24 03:15 Test 10/22/24 03:15 Range/Units Serum Glucose 135 H 74-106 mg/dL Microbiology Date/Time Source Procedure Growth Status 10/20/24 15:10 Nose MRSA Screen - Final Complete Problem List/Assessment/Plan Problem List/Assessment/Plan Assessment/Plan Acute chest pain likely due to acute coronary syndrome Status post drug-eluting stent to the LAD Status post intra-aortic balloon pump removal Uncontrolled Type 2 diabetes mellitus Primary hypertension Plan -patient went for intra aortic balloon pump removal today -last hemoglobin A1c was 9.7%, blood glucose was 143 -continue Lantus 6 units daily -continue lispro sliding scale insulin -continue blood glucose monitoring closely (no need for acute changes at this time) -patient will be going for stent placement to the posterolateral branch of the RCA on Tuesday -oxygen through nasal cannula was discontinued today since patient was saturating above 97%. -cardiology following up closely in the case Goals of care discussed with the patient at bedside Plan discussed with Dr. Rincon Plan discussed with: Patient MARK POLANCO RESIDENT Oct 22, 2024 14:27
[2024-10-22] MEDS ORDERED: LABETALOL HCL 20 MG/4 ML VL IV PRN (15:45)
--- NOTE | 2024-10-22 18:43 | DVHPNRES ---
Progress Note Date Seen: Oct 22, 2024 Resident Creating Document: PANCHO DENNEY RESIDENT Has the PT tested + for MRSA If YES, has PT been informed?: No Medical Necessity Reason Pt with a Central, PICC or Fol: No Subjective Review of Systems This is a 74-year-old male with past medical history of hypertension, uncontrolled type 2 diabetes mellitus without any medication presented to the ED on 0 10/20/2024 with a chief complaint of left-sided crushing chest pain since morning prior to this visit. the patient stated that on Tuesday when he was working in the [employer] suddenly he felt crashing chest pain, heaviness in the chest, 10/10, radiates to the jaw and left upper arm, diaphoresis, nauseous and took aspirin and call 911. wanting to the EMS the patient was hypertensive and hyperglycemic, blood sugar was 305 when they found the patient on the scene and gave aspirin and nitroglycerin, tele monitoring showed STEMI. 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 Perioperative period patient developed cardiogenic shock, intra-aortic balloon pump was done and also they found critical stenosis of large posterolateral branch of right coronary artery which they can not do stenting because of the hemodynamic status of the patient. On 10/22/2024 cardiology removed the intra-aortic balloon pump and scheduled for next PCI on 10/24/24. Patient was seen and examined in the ICU at the bedside. He is alert oriented x3. complaint of bilateral flank pain. postoperatively the patient developed right groin hematoma at the site of angiogram, safe guard was placed. patient also developed hematuria which is now getting better, heparin drip discontinued and now patient is continuing Integrilin drip at 13 mL/hours according to the cardiology recommendation. Patient is unstable for transfer to [place]. Objective vital signs Vital Sign Date Time Temp Pulse Resp B/P (MAP) Pulse Ox O2 Delivery O2 Flow Rate FiO2 10/22/24 18:00 17 97 Nasal Cannula* 2 28 10/22/24 18:00 61 115/70 (85) 10/22/24 16:00 97.8 97.8 Total Intake and Output 10/21/24 10/21/24 10/22/24 15:00 23:00 07:00 Intake Total 144 ml 1094 ml 183 ml Output Total 375 ml Balance 144 ml 719 ml 183 ml medications Current Medications Medications Dose Ordered Sig/Phyllis Route Start Time Stop Time Status Last Admin Dose Admin Sodium Chloride 10 ml Q8HR IV 10/20/24 14:00 10/22/24 06:00 10 ML Aspirin 81 mg DAILY PO 10/22/24 10:00 Cancel Ondansetron HCl 4 mg Q4HP PRN IV 10/20/24 11:30 10/21/24 11:16 4 MG Acetaminophen 650 mg Q6HP PRN PO 10/20/24 11:30 10/20/24 19:56 650 MG Nitroglycerin 0.4 mg Q5MINP PRN SL 10/20/24 11:30 Morphine Sulfate 2 mg Q30M PRN IV 10/20/24 11:30 10/21/24 12:30 2 MG Metoprolol Tartrate 25 mg BID PO 10/20/24 22:00 10/22/24 09:24 25 MG Ticagrelor 90 mg BID PO 10/20/24 22:00 10/22/24 09:24 90 MG Aspirin 81 mg DAILY PO 10/21/24 10:00 10/22/24 09:25 81 MG Dextrose 50 ml UD PRN IV 10/20/24 14:00 Atorvastatin Calcium 80 mg HS PO 10/20/24 22:00 10/21/24 21:34 80 MG Lisinopril 5 mg BID PO 10/20/24 22:00 10/21/24 21:34 5 MG Zolpidem Tartrate 5 mg HSPRN PRN PO 10/20/24 22:00 Pantoprazole Sodium 40 mg BID IV 10/21/24 00:15 10/22/24 09:24 40 MG Insulin Human Lispro ACHS [place] 10/21/24 07:00 Cancel Diagnostic Test (Pha) 1 strip ACHS 10/21/24 07:00 10/22/24 17:53 1 STRIP Insulin Human Lispro HS [place] 10/21/24 22:00 10/21/24 21:35 3 UNITS Insulin Human Lispro AC [place] 10/21/24 07:00 10/22/24 17:49 2 UNITS Insulin Glargine 6 units DAILY@1000 [place] 10/21/24 11:00 10/22/24 09:34 6 UNITS Insulin Human Lispro 2 units AC [place] 10/21/24 11:30 10/22/24 17:00 2 UNITS Acetaminophen/ Hydrocodone Bitart 1 tab Q4HPRN PRN PO 10/21/24 13:00 Eptifibatide 100 ml @ 13 mls/hr Q7H42M IV 10/21/24 22:30 10/22/24 17:53 13 MLS/HR Lactated Ringer's 1,000 ml @ 75 mls/hr [id number] IV 10/22/24 06:15 10/22/24 17:54 75 MLS/HR Labetalol HCl 10 mg Q4HP PRN IV 10/22/24 15:45 Examination Physical examination: General Appearance: Alert, Oriented X3, Cooperative, No acute distress HEENT: Atraumatic, PERRLA, EOMI, Mucous membrane moist/pink Respiratory: Mild crackles in bilateral bases Cardiovascular: Regular rate, Normal S1, Normal S2, No murmurs, no chest wall tenderness Abdominal: Normal bowel sounds, Soft, No tenderness, No hepatospenomegaly, No masses Extremities: Mild tenderness in the right lower back, No clubbing, No cyanosis, No edema, Normal pulses, No tenderness/swelling Skin: No rashes, No breakdown, No significant lesion Neuro: Normal speech, Strength at 5/5 X4 ext, Normal tone, Sensation intact, Cranial nerves 3-12 NL, Reflexes 2+ Psych/Mental Status: Mental status NL, Mood NL laboratory and microbiology Laboratory Tests 10/22/24 03:15 Test 10/22/24 03:15 Range/Units Serum Glucose 135 H 74-106 mg/dL Microbiology Date/Time Source Procedure Growth Status 10/20/24 15:10 Nose MRSA Screen - Final Complete Labs and/or images reviewed: Labs reviewed by me, Image(s) reviewed by me Problem List/Assessment/Plan Problem List/Assessment/Plan Assessment and plan: CARDIOVASCULAR: Acute chest pain likely secondary to STEMI Massive anterior GA S/P PTCA x1 in LAD Cardiogenic shock S/P intra-aortic balloon pump removal Critical stenosis of right coronary artery Acute on chronic systolic heart failure secondary to ischemic cardiomyopathy Hypertensive heart disease - chest x-ray showed increased cardiac silhouette, bilateral pulmonary vascular congestion - echo demonstrated entire anterior wall, LV apex, distal half of interventricular septum are remarkably hypokinetic, EF is 35% - cardiology on board and scheduled for another PCI for right coronary artery on 10/24/2024 - Continue eptifibatide 13 mL/hours - continue aspirin 81 mg, Brilinta 90 mg p.o. b.i.d. - Continue atorvastatin 80 mg p.o. at HS - continue metoprolol tartrate 25 mg p.o. b.i.d. - hold GDM T because of blood pressure on the lower side GENITOURINARY: Hematuria likely secondary to anticoagulant Possible BPH - Renal ultrasound revealed normal study - H/H is stable ENDOCRINE: Uncontrolled type 2 diabetes mellitus, hemoglobin A1c 9.7% - continue Lantus 6 units at HS and Humalog 2 units t.i.d. before each meal METABOLIC: Grade 1 obesity, BMI 28.2 kg/ m2 DIET: Cardiac diet DVT prophylax: GI prophylaxis: Protonix Bowel regimen: Code status: Full code LINES/DRAINS/ACCESS: IV access: Peripheral line Drips: eptifibatide Oscar catheter: Placed on 10/20/2024 DISPOSITION: ICU Patient's status discussed with and vocational childcare teacher time spent more than 81 minutes, including patient care, chart review, and updating the family. Excluding any procedures. Case discussed with Dr. Redd Plan discussed with: Spouse, Other (RN) My Orders My Orders Orders - PANCHO DENNEY Procedure Category Date Status Time Kidney US 10/22/24 Resulted 12:01 Date of Service: Oct 22, 2024 Billing Provider: FAHEEM REDD MD Common Visit Codes: 20731-[id number] CARE 30-74 MIN, [id number] CARE-EACH +30MIN PANCHO DENNEY Oct 22, 2024 18:43 FAHEEM REDD MD Oct 23, 2024 14:58
--- NOTE | 2024-10-22 22:45 | DVHPN2 ---
Progress Note - Dictate Date Seen: Oct 22, 2024 Has the PT tested + for MRSA If YES, has PT been informed?: No Medical Necessity Reason Pt with a Central, PICC or Fol: No Subjective Patient was seen and evaluated in follow-up in the ICU. Patient underwent successful placement of an intra-aortic balloon pump without any complication. The patient had been seen by the nursing staff. The patient's balloon pump has migrated down to the level of the diaphragm under local anesthesia. After giving IV Versed, balloon pump had been discontinued. The patient did well. The patient is pain-free. EKG is much better. The patient is recovering. At this time, discontinue the heparin, discontinue the Integrilin at this time, discontinue the Oscar catheter once and give some IV fluid today and have nursing staff to call me after 4 hours, then I will make further plan. vital signs Vital Sign Date Time Temp Pulse Resp B/P (MAP) Pulse Ox O2 Delivery O2 Flow Rate FiO2 10/22/24 22:00 72 131/76 (94) 94 10/22/24 22:00 12 Nasal Cannula* 2 28 10/22/24 19:00 97.9 97.9 Total Intake and Output 10/21/24 10/21/24 10/22/24 15:00 23:00 07:00 Intake Total 144 ml 1094 ml 183 ml Output Total 375 ml Balance 144 ml 719 ml 183 ml medications Current Medications Medications Dose Ordered Sig/Phyllis Route Start Time Stop Time Status Last Admin Dose Admin Sodium Chloride 10 ml Q8HR IV 10/20/24 14:00 10/22/24 21:39 10 ML Aspirin 81 mg DAILY PO 10/22/24 10:00 Cancel Ondansetron HCl 4 mg Q4HP PRN IV 10/20/24 11:30 10/21/24 11:16 4 MG Acetaminophen 650 mg Q6HP PRN PO 10/20/24 11:30 10/20/24 19:56 650 MG Nitroglycerin 0.4 mg Q5MINP PRN SL 10/20/24 11:30 Morphine Sulfate 2 mg Q30M PRN IV 10/20/24 11:30 10/21/24 12:30 2 MG Metoprolol Tartrate 25 mg BID PO 10/20/24 22:00 10/22/24 21:39 25 MG Ticagrelor 90 mg BID PO 10/20/24 22:00 10/22/24 21:38 90 MG Aspirin 81 mg DAILY PO 10/21/24 10:00 10/22/24 09:25 81 MG Dextrose 50 ml UD PRN IV 10/20/24 14:00 Atorvastatin Calcium 80 mg HS PO 10/20/24 22:00 10/22/24 21:38 80 MG Lisinopril 5 mg BID PO 10/20/24 22:00 10/22/24 21:38 5 MG Zolpidem Tartrate 5 mg HSPRN PRN PO 10/20/24 22:00 Pantoprazole Sodium 40 mg BID IV 10/21/24 00:15 10/22/24 21:39 40 MG Insulin Human Lispro ACHS [place] 10/21/24 07:00 Cancel Diagnostic Test (Pha) 1 strip ACHS 10/21/24 07:00 10/22/24 21:45 1 STRIP Insulin Human Lispro HS [place] 10/21/24 22:00 10/22/24 21:39 4 UNITS Insulin Human Lispro AC [place] 10/21/24 07:00 10/22/24 17:49 2 UNITS Insulin Glargine 6 units DAILY@1000 [place] 10/21/24 11:00 10/22/24 09:34 6 UNITS Insulin Human Lispro 2 units AC [place] 10/21/24 11:30 10/22/24 17:00 2 UNITS Acetaminophen/ Hydrocodone Bitart 1 tab Q4HPRN PRN PO 10/21/24 13:00 Lactated Ringer's 1,000 ml @ 75 mls/hr [id number] IV 10/22/24 06:15 10/22/24 17:54 75 MLS/HR Labetalol HCl 10 mg Q4HP PRN IV 10/22/24 15:45 objective GENERAL: Alert and oriented x 3. No acute distress. EYES: PERRL, EOMI. Anicteric. HENT: Moist mucous membranes. LUNGS: Clear to auscultation bilaterally. CARDIOVASCULAR: Regular rate and rhythm. ABDOMEN: Soft, nontender and nondistended. EXTREMITIES: No edema. NEUROLOGIC: No focal neurological deficits. SKIN: Warm, dry. laboratory and microbiology Laboratory Tests 10/22/24 03:15 Test 10/22/24 03:15 Range/Units Serum Glucose 135 H 74-106 mg/dL Problem List STEMI. DM. Medical noncompliance. Cardiogenic shock. Acute massive anterior wall myocardial infarction. 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 Hematuria. Assessment/Plan Continued all current supportive medical care. Morphine and [place] for pain management. Aspirin, Metoprolol. IV Labetalol for SBP >150. Lisinopril. GI prophylactics. Additional plan as per the hospital course. Critical care time of 45 minutes provided to include time spent evaluation of patient at bedside, when appropriate patient/family education for diagnosis, treatment plan, review of pertinent medical information and discussion of care with specialty providers and PCP. Plan discussed with: Patient DIDI SWANSON MD Oct 22, 2024 22:45
[2024-10-23] VITALS (23 sets, daily range): BP systolic 98–130; BP diastolic 55–82; PULSE 60–86; RESP 10–25; TEMP 97.9–98.3; O2SAT 92–100
[2024-10-23] MEDS: EPTIFIBATIDE DRIP(0.75MG/ML) 100 ML IV SCH (00:46)
[2024-10-23 04:17] LABS: Hemoglobin 14.2 g/dL (13.5-17.5)
[2024-10-23 04:19] LABS: Hematocrit 39.0 % (41.0-53.0); Mean Corpuscular Hemoglobin 36.7 pg (28.0-32.0); Mean Corpuscular Volume 100.7 fL (80.0-100.0); Nucleated Red Blood Cells % 0.1 %
[2024-10-23 04:20] LABS: Anion Gap 8 (5-15); Calcium 8.8 mg/dL (8.7-10.4); Carbon Dioxide 28 mmol/L (20-31); Potassium 4.6 mmol/L (3.5-5.1)
[2024-10-23 04:22] LABS: Chloride 97 mmol/L (98-107); Sodium 133 mmol/L (136-145)
[2024-10-23 04:26] LABS: BUN/Creatinine Ratio 17.0 (10.0-20.0); Blood Urea Nitrogen 15 mg/dL (9-23)
[2024-10-23 04:27] LABS: Magnesium 1.8 mg/dL (1.6-2.6)
[2024-10-23 04:43] LABS: Glucose 123 mg/dL (74-106)
[2024-10-23] MEDS ORDERED: DOCUSATE SOD 100 MG CAP PO PRN (10:15)
--- NOTE | 2024-10-23 14:11 | DVHPNRES ---
Progress Note Date Seen: Oct 23, 2024 Resident Creating Document: MARK POLANCO RESIDENT Has the PT tested + for MRSA If YES, has PT been informed?: No Medical Necessity Reason Pt with a Central, PICC or Fol: No Subjective Review of Systems Patient seen and examined at bedside. Patient had initial morning blood glucose in the 150s which has been well controlled with Lantus at 6 units daily. Patient is currently having spikes of glucose after meals for which insulin lispro needs to be adjusted in a timely manner. We will continue currently with sliding scale lispro insulin but we need to give 2 units of lispro before each meal to prevent glucose spikes and fluctuations. Patient will undergo stent placement tomorrow in the posterolateral branch of the RCA. Patient will be placed NPO after midnight. Otherwise patient is hemodynamically stable and denies any current symptoms or concerns. ROS Constitutional: Denies weight loss, fever and chills. HEENT: Denies changes in vision and hearing. Respiratory: Denies shortness of breath and cough Cardiovascular: Denies chest discomfort or palpitations GI: Denies abdominal pain, nausea, vomiting and diarrhea. : Denies dysuria and urinary frequency. Musculoskeletal: Denies myalgias and joint pain Skin: Denies rash and pruritus. Neurological: Denies dizziness, headache, vision or hearing problems Objective vital signs Vital Sign Date Time Temp Pulse Resp B/P (MAP) Pulse Ox O2 Delivery O2 Flow Rate FiO2 10/23/24 12:00 16 99 Room Air* 0 21 10/23/24 12:00 63 10/23/24 10:20 116/70 10/23/24 08:00 98.2 98.2 Total Intake and Output 10/22/24 10/22/24 10/23/24 15:00 23:00 07:00 Intake Total 1072 ml 1254 ml 1194 ml Output Total 500 ml 900 ml 2350 ml Balance 572 ml 354 ml -1156 ml medications Current Medications Medications Dose Ordered Sig/Phyllis Route Start Time Stop Time Status Last Admin Dose Admin Sodium Chloride 10 ml Q8HR IV 10/20/24 14:00 10/23/24 06:00 10 ML Aspirin 81 mg DAILY PO 10/22/24 10:00 Cancel Ondansetron HCl 4 mg Q4HP PRN IV 10/20/24 11:30 10/21/24 11:16 4 MG Acetaminophen 650 mg Q6HP PRN PO 10/20/24 11:30 10/20/24 19:56 650 MG Nitroglycerin 0.4 mg Q5MINP PRN SL 10/20/24 11:30 Morphine Sulfate 2 mg Q30M PRN IV 10/20/24 11:30 10/21/24 12:30 2 MG Metoprolol Tartrate 25 mg BID PO 10/20/24 22:00 10/23/24 09:18 25 MG Ticagrelor 90 mg BID PO 10/20/24 22:00 10/23/24 09:18 90 MG Aspirin 81 mg DAILY PO 10/21/24 10:00 10/23/24 09:19 81 MG Dextrose 50 ml UD PRN IV 10/20/24 14:00 Atorvastatin Calcium 80 mg HS PO 10/20/24 22:00 10/22/24 21:38 80 MG Lisinopril 5 mg BID PO 10/20/24 22:00 10/22/24 21:38 5 MG Pantoprazole Sodium 40 mg BID IV 10/21/24 00:15 10/23/24 09:18 40 MG Insulin Human Lispro ACHS [place] 10/21/24 07:00 Cancel Diagnostic Test (Pha) 1 strip ACHS 10/21/24 07:00 10/23/24 11:58 1 STRIP Insulin Human Lispro [facility] 10/21/24 22:00 10/22/24 21:39 4 UNITS Insulin Human Lispro AC [place] 10/21/24 07:00 10/23/24 11:57 9 UNITS Insulin Glargine 6 units DAILY@1000 [place] 10/21/24 11:00 10/23/24 09:25 6 UNITS Insulin Human Lispro 2 units [facility] 10/21/24 11:30 10/23/24 11:57 2 UNITS Acetaminophen/ Hydrocodone Bitart 1 tab Q4HPRN PRN PO 10/21/24 13:00 Labetalol HCl 10 mg Q4HP PRN IV 10/22/24 15:45 Eptifibatide 100 ml @ 13 mls/hr Q7H42M IV 10/23/24 00:30 10/23/24 07:48 13 MLS/HR Docusate Sodium 100 mg BIDPRN PRN PO 10/23/24 10:15 Examination Physical Examination General: Patient alert and oriented in person, place and time. Patient following commands. HEENT: Normocephalic, atraumatic, moist mucous membranes Respiratory/pulmonary: Clear lungs bilaterally, vesicular murmurs present in almost all lung poon, no associated crackles or wheezes. Cardiovascular: Normal heart sounds S1 and S2 with no associated murmurs Abdomen: Abdomen nondistended, there is no pain to palpation in any of the abdominal quadrants, no palpable masses. Extremities: There is no peripheral edema present at the lower extremities. Skin: No rashes or pruritus, there is no sacral edema present at this time. Neurological: Intact cranial nerves with no focal neurologic deficits laboratory and microbiology Laboratory Tests 10/23/24 03:17 Test 10/23/24 03:17 Range/Units Serum Glucose 123 H 74-106 mg/dL Microbiology Date/Time Source Procedure Growth Status 10/20/24 15:10 Nose MRSA Screen - Final Complete Problem List/Assessment/Plan Problem List/Assessment/Plan Assessment/Plan Acute chest pain likely due to acute coronary syndrome Status post drug-eluting stent to the LAD Status post intra-aortic balloon pump removal Uncontrolled Type 2 diabetes mellitus Primary hypertension Plan -last hemoglobin A1c was 9.7%, blood glucose was 150 but there has been glucose spikes after meals, reason why insulin lispro has to be adjusted in timely manner before meals. -Start Insulin lispro 2 units before meals, as well as lispro sliding scale insulin -continue Lantus 6 units daily -continue blood glucose monitoring closely -patient will be going for stent placement to the posterolateral branch of the RCA tomorrow. NPO after midnight -cardiology following up closely in the case Goals of care discussed with the patient at bedside Plan discussed with Dr. Rincon Plan discussed with: Patient Dietary Evaluation Review Comments: Nutrition Recommendation 1) CCHO 75gm + cardiac diet 2) Refer [employer] Tempe[employer] for diabetes education 3) Monitor PO intake, lab values, weight trend, and I/O Expected Outcomes/Goals: To meet >75% estimated needs Blood glucose to improve Fu 3-5 days MARK POLANCO RESIDENT Oct 23, 2024 14:11
--- NOTE | 2024-10-23 19:27 | DVHPNRES ---
Progress Note Date Seen: Oct 23, 2024 Resident Creating Document: PANCHO DENNEY RESIDENT Has the PT tested + for MRSA If YES, has PT been informed?: No Medical Necessity Reason Pt with a Central, PICC or Fol: No Subjective Review of Systems This is a 74-year-old male with past medical history of hypertension, uncontrolled type 2 diabetes mellitus without any medication presented to the ED on 0 10/20/2024 with a chief complaint of left-sided crushing chest pain since morning prior to this visit. the patient stated that on Tuesday when he was working in the [employer] suddenly he felt crashing chest pain, heaviness in the chest, 10/10, radiates to the jaw and left upper arm, diaphoresis, nauseous and took aspirin and call 911. wanting to the EMS the patient was hypertensive and hyperglycemic, blood sugar was 305 when they found the patient on the scene and gave aspirin and nitroglycerin, tele monitoring showed STEMI. in the ER code STEMI was called and patient was taken to the catheter finisher and inspector and underwent PTCA x1 in LAD. Perioperative period patient developed cardiogenic shock, intra-aortic balloon pump was done and also they found critical stenosis of large posterolateral branch of right coronary artery which they can not do stenting because of the hemodynamic status of the patient. On 10/22/2024 cardiology removed the intra-aortic balloon pump and scheduled for next PCI on 10/24/24. Patient was seen and examined in the ICU at the bedside. He is alert oriented x3. complaint of bilateral flank pain. postoperatively the patient developed right groin hematoma at the site of angiogram, safe guard was placed. patient also developed hematuria which is now getting better, heparin drip discontinued and now patient is continuing Integrilin drip at 13 mL/hours according to the cardiology recommendation. Scheduled for PCI tomorrow. Patient is unstable for transfer to [place]. Objective vital signs Vital Sign Date Time Temp Pulse Resp B/P (MAP) Pulse Ox O2 Delivery O2 Flow Rate FiO2 10/23/24 18:00 68 16 98/71 (80) 99 10/23/24 18:00 Room Air* 0 21 10/23/24 16:00 98.0 98.0 Total Intake and Output 10/22/24 10/22/24 10/23/24 15:00 23:00 07:00 Intake Total 1072 ml 1254 ml 1194 ml Output Total 500 ml 900 ml 2350 ml Balance 572 ml 354 ml -1156 ml medications Current Medications Medications Dose Ordered Sig/Phyllis Route Start Time Stop Time Status Last Admin Dose Admin Sodium Chloride 10 ml Q8HR IV 10/20/24 14:00 10/23/24 06:00 10 ML Aspirin 81 mg DAILY PO 10/22/24 10:00 Cancel Ondansetron HCl 4 mg Q4HP PRN IV 10/20/24 11:30 10/21/24 11:16 4 MG Acetaminophen 650 mg Q6HP PRN PO 10/20/24 11:30 10/20/24 19:56 650 MG Nitroglycerin 0.4 mg Q5MINP PRN SL 10/20/24 11:30 Morphine Sulfate 2 mg Q30M PRN IV 10/20/24 11:30 10/21/24 12:30 2 MG Metoprolol Tartrate 25 mg BID PO 10/20/24 22:00 10/23/24 09:18 25 MG Ticagrelor 90 mg BID PO 10/20/24 22:00 10/23/24 09:18 90 MG Aspirin 81 mg DAILY PO 10/21/24 10:00 10/23/24 09:19 81 MG Dextrose 50 ml UD PRN IV 10/20/24 14:00 Atorvastatin Calcium 80 mg HS PO 10/20/24 22:00 10/22/24 21:38 80 MG Lisinopril 5 mg BID PO 10/20/24 22:00 10/22/24 21:38 5 MG Pantoprazole Sodium 40 mg BID IV 10/21/24 00:15 10/23/24 09:18 40 MG Insulin Human Lispro ACHS [place] 10/21/24 07:00 Cancel Diagnostic Test (Pha) 1 strip ACHS 10/21/24 07:00 10/23/24 17:40 1 STRIP Insulin Human Lispro HS [place] 10/21/24 22:00 10/22/24 21:39 4 UNITS Insulin Human Lispro AC [place] 10/21/24 07:00 10/23/24 11:57 9 UNITS Insulin Glargine 6 units DAILY@1000 [place] 10/21/24 11:00 10/23/24 09:25 6 UNITS Insulin Human Lispro 2 units AC [place] 10/21/24 11:30 10/23/24 18:36 2 UNITS Acetaminophen/ Hydrocodone Bitart 1 tab Q4HPRN PRN PO 10/21/24 13:00 Labetalol HCl 10 mg Q4HP PRN IV 10/22/24 15:45 Eptifibatide 100 ml @ 13 mls/hr Q7H42M IV 10/23/24 00:30 10/23/24 15:17 13 MLS/HR Docusate Sodium 100 mg BIDPRN PRN PO 10/23/24 10:15 Examination Physical examination: General Appearance: Alert, Oriented X3, Cooperative, No acute distress HEENT: Atraumatic, PERRLA, EOMI, Mucous membrane moist/pink Respiratory: Mild crackles in bilateral bases Cardiovascular: Regular rate, Normal S1, Normal S2, No murmurs, no chest wall tenderness Abdominal: Normal bowel sounds, Soft, No tenderness, No hepatospenomegaly, No masses Extremities: Mild tenderness in the right lower back, No clubbing, No cyanosis, No edema, Normal pulses, No tenderness/swelling Skin: No rashes, No breakdown, No significant lesion Neuro: Normal speech, Strength at 5/5 X4 ext, Normal tone, Sensation intact, Cranial nerves 3-12 NL, Reflexes 2+ Psych/Mental Status: Mental status NL, Mood NL laboratory and microbiology Laboratory Tests 10/23/24 03:17 Test 10/23/24 03:17 Range/Units Serum Glucose 123 H 74-106 mg/dL Microbiology Date/Time Source Procedure Growth Status 10/20/24 15:10 Nose MRSA Screen - Final Complete Labs and/or images reviewed: Labs reviewed by me, Image(s) reviewed by me Problem List/Assessment/Plan Problem List/Assessment/Plan Assessment and plan: CARDIOVASCULAR: Acute chest pain likely secondary to STEMI Massive anterior IN S/P PTCA x1 in LAD Cardiogenic shock S/P intra-aortic balloon pump removal Critical stenosis of right coronary artery Acute on chronic systolic heart failure secondary to ischemic cardiomyopathy Hypertensive heart disease - chest x-ray showed increased cardiac silhouette, bilateral pulmonary vascular congestion - echo demonstrated entire anterior wall, LV apex, distal half of interventricular septum are remarkably hypokinetic, EF is 35% - cardiology on board and scheduled for another PCI for right coronary artery on 10/24/2024 - Continue eptifibatide 13 mL/hours - continue aspirin 81 mg, Brilinta 90 mg p.o. b.i.d. - Continue atorvastatin 80 mg p.o. at HS - continue metoprolol tartrate 25 mg p.o. b.i.d. - hold GDM T because of blood pressure on the lower side - scheduled for PCI tomorrow GENITOURINARY: Hematuria likely secondary to anticoagulant Possible BPH - Renal ultrasound revealed normal study - H/H is stable ENDOCRINE: Uncontrolled type 2 diabetes mellitus, hemoglobin A1c 9.7% - continue Lantus 6 units at HS and Humalog 2 units t.i.d. before each meal METABOLIC: Grade 1 obesity, BMI 28.2 kg/ m2 DIET: Cardiac diet DVT prophylax: GI prophylaxis: Protonix Bowel regimen: Code status: Full code LINES/DRAINS/ACCESS: IV access: Peripheral line Drips: eptifibatide Oscar catheter: Placed on 10/20/2024 DISPOSITION: ICU Patient's status discussed with and care coordination manager time spent more than 66 minutes, including patient care, chart review, and updating the family. Excluding any procedures. Case discussed with Dr. Redd Plan discussed with: Patient, Other (RN) My Orders My Orders Orders - PANCHO DENNEY Procedure Category Date Status Time Docusate Sodium PHA 10/23/24 In Process Capsule (Colace 10:15 Dietary Evaluation Review Comments: Nutrition Recommendation 1) CCHO 75gm + cardiac diet 2) Refer [facility] [employer] for diabetes education 3) Monitor PO intake, lab values, weight trend, and I/O Expected Outcomes/Goals: To meet >75% estimated needs Blood glucose to improve Fu 3-5 days Date of Service: Oct 23, 2024 Billing Provider: FAHEEM REDD MD Common Visit Codes: 87442-[id number] CARE 30-74 MIN PANCHO DENNEY Oct 23, 2024 19:27 FAHEEM REDD MD Oct 24, 2024 15:22
--- NOTE | 2024-10-23 22:42 | DVHPN2 ---
Progress Note - Dictate Date Seen: Oct 23, 2024 Has the PT tested + for MRSA If YES, has PT been informed?: No Medical Necessity Reason Pt with a Central, PICC or Fol: No Subjective Patient was seen and evaluated in follow up in the ICU. Patient is on 2 LPM NC. Patient x/o bilateral flank pain. Patient schuedled for stent placement tomorrow in the posterolateral branch of the RCA. Patient will be placed NPO after midnight. Patient is on Integrilin drip. vital signs Vital Sign Date Time Temp Pulse Resp B/P (MAP) Pulse Ox O2 Delivery O2 Flow Rate FiO2 10/23/24 22:00 16 94 Room Air* 0 21 10/23/24 22:00 78 122/69 (86) 10/23/24 20:00 98.3 98.3 Total Intake and Output 10/22/24 10/22/24 10/23/24 15:00 23:00 07:00 Intake Total 1072 ml 1254 ml 1194 ml Output Total 500 ml 900 ml 2350 ml Balance 572 ml 354 ml -1156 ml medications Current Medications Medications Dose Ordered Sig/Phyllis Route Start Time Stop Time Status Last Admin Dose Admin Sodium Chloride 10 ml Q8HR IV 10/20/24 14:00 10/23/24 21:58 10 ML Aspirin 81 mg DAILY PO 10/22/24 10:00 Cancel Ondansetron HCl 4 mg Q4HP PRN IV 10/20/24 11:30 10/21/24 11:16 4 MG Acetaminophen 650 mg Q6HP PRN PO 10/20/24 11:30 10/20/24 19:56 650 MG Nitroglycerin 0.4 mg Q5MINP PRN SL 10/20/24 11:30 Morphine Sulfate 2 mg Q30M PRN IV 10/20/24 11:30 10/21/24 12:30 2 MG Metoprolol Tartrate 25 mg BID PO 10/20/24 22:00 10/23/24 21:57 25 MG Ticagrelor 90 mg BID PO 10/20/24 22:00 10/23/24 21:57 90 MG Aspirin 81 mg DAILY PO 10/21/24 10:00 10/23/24 09:19 81 MG Dextrose 50 ml UD PRN IV 10/20/24 14:00 Atorvastatin Calcium 80 mg HS PO 10/20/24 22:00 9/9/25 21:57 80 MG Lisinopril 5 mg BID PO 10/20/24 22:00 10/23/24 21:58 5 MG Pantoprazole Sodium 40 mg BID IV 10/21/24 00:15 10/23/24 21:57 40 MG Insulin Human Lispro ACHS [place] 10/21/24 07:00 Cancel Diagnostic Test (Pha) 1 strip ACHS 10/21/24 07:00 10/23/24 22:01 1 STRIP Insulin Human Lispro HS [place] 10/21/24 22:00 10/23/24 21:59 4 UNITS Insulin Human Lispro AC [place] 10/21/24 07:00 10/23/24 11:57 9 UNITS Insulin Glargine 6 units DAILY@1000 [place] 10/21/24 11:00 10/23/24 09:25 6 UNITS Insulin Human Lispro 2 units AC [place] 10/21/24 11:30 10/23/24 18:36 2 UNITS Acetaminophen/ Hydrocodone Bitart 1 tab Q4HPRN PRN PO 10/21/24 13:00 Labetalol HCl 10 mg Q4HP PRN IV 10/22/24 15:45 Eptifibatide 100 ml @ 13 mls/hr Q7H42M IV 10/23/24 00:30 10/23/24 15:17 13 MLS/HR Docusate Sodium 100 mg BIDPRN PRN PO 10/23/24 10:15 objective GENERAL: Alert and oriented x 3. No acute distress. EYES: PERRL, EOMI. Anicteric. HENT: Moist mucous membranes. LUNGS: Clear to auscultation bilaterally. CARDIOVASCULAR: Regular rate and rhythm. ABDOMEN: Soft, nontender and nondistended. EXTREMITIES: No edema. NEUROLOGIC: No focal neurological deficits. SKIN: Warm, dry. laboratory and microbiology Laboratory Tests 10/23/24 03:17 Test 10/23/24 03:17 Range/Units Serum Glucose 123 H 74-106 mg/dL Problem List STEMI. DM. Medical noncompliance. Cardiogenic shock. Acute massive anterior wall myocardial infarction. 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 Hematuria. Assessment/Plan Continued all current supportive medical care. Morphine and [place] for pain management. Aspirin, Metoprolol, Brilinta. IV Labetalol for SBP >150. Lisinopril. GI prophylactics. Integrilin drip. Additional plan as per the hospital course. Critical care time of 45 minutes provided to include time spent evaluation of patient at bedside, when appropriate patient/family education for diagnosis, treatment plan, review of pertinent medical information and discussion of care with specialty providers and PCP. Dietary Evaluation Review Comments: Nutrition Recommendation 1) CCHO 75gm + cardiac diet 2) Refer [employer] Mechanic Supervisor for diabetes education 3) Monitor PO intake, lab values, weight trend, and I/O Expected Outcomes/Goals: To meet >75% estimated needs Blood glucose to improve Fu 3-5 days Plan discussed with: Patient DIDI SWANSON MD Oct 23, 2024 22:42
[2024-10-24] VITALS (26 sets, daily range): BP systolic 16–157; BP diastolic 68–102; PULSE 62–79; RESP 12–29; TEMP 97.9–98.7; O2SAT 90–100
[2024-10-24] MEDS: EPTIFIBATIDE DRIP(0.75MG/ML) 100 ML IV SCH (01:15)
[2024-10-24 04:18] LABS: Hemoglobin 14.0 g/dL (13.5-17.5); Mean Corpuscular Hemoglobin 36.7 pg (28.0-32.0)
[2024-10-24 04:19] LABS: Hematocrit 38.1 % (41.0-53.0); Mean Corpuscular Volume 100.3 fL (80.0-100.0); Nucleated Red Blood Cells % 0.1 %
[2024-10-24 04:24] LABS: INR 1.08 (0.9-1.15); Partial Thromboplastin Time 27.7 SEC (24.5-34.5); Prothrombin Time 11.4 sec (9.3-11.8)
[2024-10-24 04:28] LABS: Chloride 99 mmol/L (98-107); Potassium 4.2 mmol/L (3.5-5.1)
[2024-10-24 04:29] LABS: Anion Gap 7 (5-15); Calcium 8.7 mg/dL (8.7-10.4); Carbon Dioxide 29 mmol/L (20-31)
[2024-10-24 04:34] LABS: BUN/Creatinine Ratio 15.1 (10.0-20.0); Blood Urea Nitrogen 14 mg/dL (9-23)
[2024-10-24 04:56] LABS: Glucose 133 mg/dL (74-106); Sodium 135 mmol/L (136-145)
[2024-10-24] MEDS: IODIXANOL 320MG/ML 100ML BTL IV ONE (07:37)
[2024-10-24] MEDS: LIDOCAINE 2%HCL (LOCAL ANESTH.) INJ 20ML MDV ONE (08:46)
[2024-10-24] MEDS: VERAPAMIL 2.5MG/ML INJ 2ML VIAL IV ONE (08:50)
[2024-10-24] MEDS: HEPARIN SODIUM (PORCINE) 5000 UNITS/ML 1ML VIAL ONE (08:50)
[2024-10-24] MEDS: MIDAZOLAM HCL 2MG/2ML 2ml VIAL (1mg/ml) ONE (08:50)
[2024-10-24] MEDS: fentaNYL CITRATE 100 MCG/2 ML VL ONE (08:50)
[2024-10-24] MEDS: ANGIOMAX 250 MG VIAL IV ONE (08:50)
[2024-10-24] MEDS: SODIUM CHL 0.9% 50 ML ONE (08:51)
--- NOTE | 2024-10-24 09:53 | ECG ---
[facility] Test Date: 2024-10-20 Test Time: 11:13:27 Pat Name: NADIRA JIMÉNEZ Department: ER Room: 0295T Gender: M Community Relations Advisor: BILL : [id number] Requested By: DIDI SWANSON Order Number: [id number] Reading MD: Jero Casillas Measurements Intervals [place] Rate: 72 P: -30 OK: 172 QRS: -40 QRSD: 102 T: 80 QT: 423 QTc: 463 Interpretive Statements Sinus rhythm Left anterior fascicular block Left ventricular hypertrophy Anterior infarct, acute (LAD) ST elevation, consider inferior injury Electronically Signed On 10-30-2024 18:50:44 PDT by Jero Casillas Please click the below link to view image of tracing.
--- NOTE | 2024-10-24 10:48 | DVHPNRES ---
Progress Note Date Seen: Oct 24, 2024 Resident Creating Document: MARK POLANCO RESIDENT Has the PT tested + for MRSA If YES, has PT been informed?: No Medical Necessity Reason Pt with a Central, PICC or Fol: No Subjective Review of Systems Patient seen and examined at bedside. Patient was NPO this morning in order to undergo left heart catheterization with stent placement in the posterolateral branch of the RCA. Patient underwent successfully stent placement without complications. Patient is currently asymptomatic, hemodynamically stable and has no concerns or symptoms at this time. Blood sugars has been well controlled over the morning but patient has been NPO for the procedure. We explained to the nurse importance of giving the pre meal insulin lispro 2 units dosage to prevent spikes and follow-up with the sliding scale lispro as well as the Lantus. ROS Constitutional: Denies weight loss, fever and chills. HEENT: Denies changes in vision and hearing. Respiratory: Denies shortness of breath and cough Cardiovascular: Denies chest discomfort or palpitations GI: Denies abdominal pain, nausea, vomiting and diarrhea. : Denies dysuria and urinary frequency. Musculoskeletal: Denies myalgias and joint pain Skin: Denies rash and pruritus. Neurological: Denies dizziness, headache, vision or hearing problems Objective vital signs Vital Sign Date Time Temp Pulse Resp B/P (MAP) Pulse Ox O2 Delivery O2 Flow Rate FiO2 10/24/24 10:00 16 94 Room Air* 0 21 10/24/24 08:00 71 10/24/24 07:00 119/68 (85) 10/24/24 04:00 98.4 98.4 Total Intake and Output 10/23/24 10/23/24 10/24/24 15:00 23:00 07:00 Intake Total 104 ml 854 ml 704 ml Output Total 1850 ml 1450 ml Balance 104 ml -996 ml -746 ml medications Current Medications Medications Dose Ordered Sig/Phyllis Route Start Time Stop Time Status Last Admin Dose Admin Sodium Chloride 10 ml Q8HR IV 10/20/24 14:00 10/24/24 05:54 10 ML Aspirin 81 mg DAILY PO 10/22/24 10:00 Cancel Ondansetron HCl 4 mg Q4HP PRN IV 10/20/24 11:30 10/21/24 11:16 4 MG Acetaminophen 650 mg Q6HP PRN PO 10/20/24 11:30 10/20/24 19:56 650 MG Nitroglycerin 0.4 mg Q5MINP PRN SL 10/20/24 11:30 Morphine Sulfate 2 mg Q30M PRN IV 10/20/24 11:30 10/21/24 12:30 2 MG Metoprolol Tartrate 25 mg BID PO 10/20/24 22:00 10/23/24 21:57 25 MG Ticagrelor 90 mg BID PO 10/20/24 22:00 10/23/24 21:57 90 MG Aspirin 81 mg DAILY PO 10/21/24 10:00 10/23/24 09:19 81 MG Dextrose 50 ml UD PRN IV 10/20/24 14:00 Atorvastatin Calcium 80 mg HS PO 10/20/24 22:00 10/23/24 21:57 80 MG Lisinopril 5 mg BID PO 10/20/24 22:00 10/23/24 21:58 5 MG Pantoprazole Sodium 40 mg BID IV 10/21/24 00:15 10/23/24 21:57 40 MG Insulin Human Lispro ACHS VT 10/21/24 07:00 Cancel Diagnostic Test (Pha) 1 strip ACHS 10/21/24 07:00 10/24/24 06:11 1 STRIP Insulin Human Lispro [facility] 10/21/24 22:00 10/23/24 21:59 4 UNITS Insulin Human Lispro AC VT 10/21/24 07:00 10/24/24 06:15 2 UNITS Insulin Glargine 6 units DAILY@1000 [place] 10/21/24 11:00 10/23/24 09:25 6 UNITS Insulin Human Lispro 2 units [facility] 10/21/24 11:30 10/24/24 06:16 2 UNITS Acetaminophen/ Hydrocodone Bitart 1 tab Q4HPRN PRN PO 10/21/24 13:00 Labetalol HCl 10 mg Q4HP PRN IV 10/22/24 15:45 Docusate Sodium 100 mg BIDPRN PRN PO 10/23/24 10:15 Ceftriaxone Sodium 50 ml @ 100 mls/hr DAILY@09 IV 10/24/24 10:30 UNV Sodium Chloride 1,000 ml @ 70 mls/hr [id number] IV 10/24/24 10:30 UNV Examination Physical Examination General: Patient alert and oriented in person, place and time. Patient following commands. HEENT: Normocephalic, atraumatic, moist mucous membranes Respiratory/pulmonary: Clear lungs bilaterally, vesicular murmurs present in almost all lung poon, no associated crackles or wheezes. Cardiovascular: Normal heart sounds S1 and S2 with no associated murmurs Abdomen: Abdomen nondistended, there is no pain to palpation in any of the abdominal quadrants, no palpable masses. Extremities: There is no peripheral edema present at the lower extremities. Skin: No rashes or pruritus, there is no sacral edema present at this time. Neurological: Intact cranial nerves with no focal neurologic deficits laboratory and microbiology Laboratory Tests 10/24/24 03:30 Test 10/24/24 03:30 Range/Units Serum Glucose 133 H 74-106 mg/dL Microbiology Date/Time Source Procedure Growth Status 10/20/24 15:10 Nose MRSA Screen - Final Complete Problem List/Assessment/Plan Problem List/Assessment/Plan Assessment/Plan Acute chest pain likely due to acute coronary syndrome Status post drug-eluting stent to the LAD Status post intra-aortic balloon pump removal Uncontrolled Type 2 diabetes mellitus Primary hypertension Plan -last hemoglobin A1c was 9.7%, blood glucose was has been well controlled this morning but patient has been NPO. Nurse was reminded to give 2 units of lispro before meals to prevent glucose spikes. -continue Insulin lispro 2 units before meals, as well as lispro sliding scale insulin -continue Lantus 6 units daily -continue blood glucose monitoring closely -today, patient underwent stent placement in the posterolateral branch of the RCA -cardiology following up closely in the case Goals of care discussed with the patient at bedside Plan discussed with Dr. Rincon Plan discussed with: Patient Dietary Evaluation Review Comments: Nutrition Recommendation 1) [facility] 75[facility] + cardiac diet 2) Refer Hand Flatwork Finisher for diabetes education 3) Monitor PO intake, lab values, weight trend, and I/O Expected Outcomes/Goals: To meet >75% estimated needs Blood glucose to improve Fu 3-5 days MARK POLANCO RESIDENT Oct 24, 2024 10:48
[2024-10-24] MEDS: SODIUM CHLORIDE 0.9% 1,000 ML IV SCH (11:24)
[2024-10-24] MEDS: FLUMAZENIL 0.1 MG/ML INJ 10ML MDV IV ONE (11:44)
--- NOTE | 2024-10-24 13:27 | DVHINCON2 ---
Date of service: Oct 24, 2024 Referring Physician Hospitalist Reason for Consultation Hematuria History of Present Illness Patient admitted to ICU for STEMI and is receiving anticoagulation. Patient returned from cardiac catheterization with noted salbador gross hematuria. Zhao catheter is in place. Renal US is unremarkable. 74 y/o M, with a history of cholelithiasis, DM, and noncompliance with medications, is BIBA from private residence for c/c nonradiating, left sided chest pain. Per EMS report, patient endorses on sudden, unprovoked, and atraumatic onset of pressure-like pain, while performing daily yard work, this morning. Patient is stated to have then enter his home and taken 1x ASA prior to calling EMS. Patient was found hypertensive and hyperglycemic, with a blood glucose of 305, on scene and found multiple times in STEMI via monitoring analyst en route. Patient received an 2x additional dosages of ASA and 1x NTG by EMS personnel prior to arrival. No endorsement of any recent stressors, additional strenuous activities, sick contacts, or additional pertinent events or history. No reported shortness of breath, palpitations, nausea, vomiting, or further acut e associated symptoms. Past Medical History Diabetes CAD Past Surgical History Cardiac catheterization Family History: Patient reports no known family medical history. Allergies: Coded Allergies: NO KNOWN ALLERGIES (Unverified , 10/20/24) Current Medications Current Medications Medications (Trade) Dose Ordered Sig/Phyllis Route PRN Reason Start Time Stop Time Status Last Admin Eptifibatide 100 ml @ 13 mls/hr [id number] IV 10/24/24 14:30 10/21/24 22:18 DC Eptifibatide 100 ml @ 13 mls/hr Q7H42M IV 10/24/24 01:15 10/24/24 10:28 DC 10/24/24 05:05 Ceftriaxone Sodium 50 ml @ 100 mls/hr DAILY@09 IV 10/24/24 10:30 10/24/24 12:33 Sodium Chloride 1,000 ml @ 70 mls/hr [id number] IV 10/24/24 10:30 10/24/24 11:24 Review of Systems Constitutional: Yes: Sweats Cardiovascular: Chest Pain Allergies: Coded Allergies: NO KNOWN ALLERGIES (Unverified , 10/20/24) Medications Current Medications Medications Dose Ordered Sig/Phyllis Route Start Time Stop Time Status Last Admin Dose Admin Sodium Chloride 10 ml Q8HR IV 10/20/24 14:00 UNV Aspirin 81 mg DAILY PO 10/22/24 10:00 UNV Vital Signs Vital Signs Date Time Temp Pulse Resp B/P (MAP) Pulse Ox O2 Delivery O2 Flow Rate FiO2 10/24/24 12:00 15 98 Room Air* 0 21 10/24/24 12:00 65 10/24/24 11:19 140/77 10/24/24 04:00 98.4 98.4 Physical Exam Vital Signs Date Time Temp Pulse Resp B/P (MAP) Pulse Ox O2 Delivery O2 Flow Rate FiO2 10/20/24 11:26 74 General Appearance: Alert, Oriented X3, Cooperative, No acute distress HEENT: Atraumatic, PERRLA, Mucous membr. moist/pink Respiratory: Clear to auscultation, Normal air movement Cardiovascular: Normal S1, Normal S2, No murmurs, Other (ST elevation) Abdominal: Normal bowel sounds, Soft, No tenderness, No hepatospenomegaly, No masses : zhao in place with BRB Extremities: No clubbing, No cyanosis, No edema, Normal pulses, No tenderness/swelling Skin: No rashes, No breakdown Neuro: Normal gait, Normal speech, Strength at 5/5 X4 ext, Normal tone, Sensation intact, Cranial nerves 3-12 NL Psych/Mental Status: Mental status NL Labs/Diagnostic Data Labs Test 10/24/24 11:30 10/24/24 03:30 10/23/24 03:17 10/22/24 03:15 Range/Units POC Glucose 172 H 70-106 mg/dl White Blood Count 8.9 4.4-10.8 10^3/uL Red Blood Count 3.80 L 4.5-5.90 10^6/uL Hemoglobin 14.0 13.5-17.5 g/dL Hematocrit 38.1 L 41.0-53.0 % Mean Corpuscular Volume 100.3 H 80.0-100.0 fL Mean Corpuscular Hemoglobin 36.7 H 28.0-32.0 pg Mean Corpuscular Hemoglobin Concent 36.6 H 32.0-36.0 g/dL Red Cell Distribution Width 14.1 11.8-14.3 % Platelet Count 189 140-450 10^3/uL Mean Platelet Volume 8.2 6.9-10.8 fL Neutrophils (%) (Auto) 75.2 37.0-80.0 % Lymphocytes (%) (Auto) 12.7 10.0-50.0 % Monocytes (%) (Auto) 10.4 0.0-12.0 % Eosinophils (%) (Auto) 1.6 0.0-7.0 % Basophils (%) (Auto) 0.1 0.0-2.0 % Neutrophils # (Auto) 6.6 1.6-8.6 10 ^3/uL Lymphocytes # (Auto) 1.1 0.4-5.4 10 ^3/uL Monocytes # (Auto) 0.9 0-1.3 10 ^3/uL Eosinophils # (Auto) 0.1 0-0.8 10 ^3/uL Basophils # (Auto) 0 0-0.2 10 ^3/uL Nucleated Red Blood Cells 0.1 % Prothrombin Time 11.4 9.3-11.8 sec Prothrombin Time INR 1.08 0.9-1.15 Activated Partial Thromboplast Time 27.7 24.5-34.5 SEC Sodium Level 135 L 136-145 mmol/L Potassium Level 4.2 3.5-5.1 mmol/L Chloride Level 99 98-107 mmol/L Carbon Dioxide Level 29 20-31 mmol/L Anion Gap 7 5-15 Blood Urea Nitrogen 14 9-23 mg/dL Creatinine 0.93 0.700-1.30 mg/dL Glomerular Filtration Rate Calc 87 >90 mL/min BUN/Creatinine Ratio 15.1 10.0-20.0 Serum Glucose 133 H 74-106 mg/dL Calcium Level 8.7 8.7-10.4 mg/dL Magnesium Level 1.8 1.6-2.6 mg/dL Total Bilirubin 1.6 H 0.2-1.0 mg/dL Aspartate Amino Transferase (AST) 294 H 13-40 U/L Alanine Aminotransferase (ALT) 57 H 7-40 U/L Alkaline Phosphatase 70 46-116 U/L Total Protein 6.3 5.7-8.2 g/dL Albumin 4.0 3.2-4.8 g/dL Triglycerides Level 72 < 150 mg/dL Cholesterol Level 166 < 200 mg/dL LDL Cholesterol 100 H < 100 mg/dL HDL Cholesterol 57 40-59 mg/dL Test 10/21/24 03:33 10/20/24 15:27 10/20/24 11:20 Range/Units Hemoglobin A1c 9.7 H <5.7 % A1C Urine Color Light-yellow Yellow Urine Clarity Clear Clear Urine pH 5.5 5.0-9.0 Urine Specific Sabine 1.046 H 1.001-1.035 Urine Protein 1+ H Negative Urine Ketones 2+ H Negative Urine Blood 3+ H Negative /uL Urine Nitrite Negative Negative Urine Bilirubin Negative Negative Urine Urobilinogen Normal Negative mg/dL Urine Leukocyte Esterase Negative Negative /uL Urine RBC 11 0 - 3 /hpf Urine Microscopic WBC 1 0-3 /HPF Urine Squamous Epithelial Cells None seen <5 /hpf Urine Bacteria None seen None Seen /hpf Urine Hyaline Casts Few 0 - 2 /lpf Urine Glucose 4+ H Normal mg/dL Troponin I High Sensitivity 45 </=54 ng/L Microbiology Date/Time Source Procedure Growth Status 10/20/24 15:10 Nose MRSA Screen - Final Complete Assessment Gross hematuria CAD STEMI Plan/Recommendation Continue with Zhao care. If necessary, switch to [address] Zhao for CBI. CT ABD/Pelvis NC Plan discussed with: Patient, Other ROAMN CORMIER MD Oct 24, 2024 13:27
[2024-10-24 13:43] LABS: Potassium 4.4 mmol/L (3.5-5.1)
[2024-10-24 13:49] LABS: Magnesium 1.7 mg/dL (1.6-2.6)
--- NOTE | 2024-10-24 14:26 | DVHOP ---
DATE OF SURGERY: 10/24/2024 TECHNIQUES PERFORMED: * Emergency case. * Ultrasound of the right iliac artery. * Management of conscious sedation. * Shockwave balloon angioplasty of large posterolateral branch of the right coronary artery. * Stenting and angioplasty of mid region of the large posterolateral branch of the right coronary artery with 2.75 x 12 mm Mahomet stent of DZZOM. * Intravascular ultrasound of the right coronary artery. * Balloon angioplasty of posterolateral branch stent with 2.75 x 12 mm noncompliant and mid artery size to 2.90 mm in size. * Intravenous administration of Integrelin. COMPLICATIONS: None. ASSISTANTS: Assisted by our staff including Riley Maddox and Ileana. INDICATIONS: The patient has 95% narrowing of a large posterolateral branch of the right coronary artery and acute coronary syndrome, recent anterior wall myocardial infarction a few days ago. DESCRIPTION OF PROCEDURE: Procedure, risks, benefits discussed in a standard manner. The patient was brought to our lab. The patient's right groin area was shaved, cleaned with soap and Betadine, lidocaine was given and ultrasound was done. A 6-Andorran arterial line was placed in a standard manner. The patient was given 100 mcg of nitroglycerin, 2.5 mg of verapamil and 2000 units of heparin were given. JR4 6-Andorran guiding catheter was advanced in the right groin. Angiography was done. Angiomax was given. Runthrough wire was passed. Shockwave balloon angioplasty was done in a large posterolateral branch of the right coronary artery and subsequently now we also put a stent 2.75 x 12 mm length Mahomet Gilliam stent. Stent had been fully deployed and deflated balloon has been discontinued and subsequently now we did intravascular ultrasound. We again put a balloon 2.75 x 12, balloon angiography done, mid artery size to 2.90 mm in size. Angiography was done, result was satisfactory. There were no complications. The procedure went well. CONCLUSION: * Prior to performing the procedure #1, the large posterolateral branch of the right coronary artery had a critical stenosis of 95%. JEREMY grade 3 flow. * Post procedure JEREMY grade 3 flow and residual stenosis is 0%. PLAN OF ACTION: Advised to have aspirin, Brilinta, beta-keren, cholesterol-reducing medicine. Yazmin Haddad MD MP/SAMMY/CIERRA TID: [id number] RECEIPT: [id number] [facility]
[2024-10-24] MEDS ORDERED: EPTIFIBATIDE DRIP(0.75MG/ML) 100 ML IV SCH (14:30)
[2024-10-24] MEDS: MAGNESIUM SULFATE 1GM/100ML 100 ML IV ONE (17:06)
--- NOTE | 2024-10-24 18:25 | DVHPNRES ---
Progress Note Date Seen: Oct 24, 2024 Resident Creating Document: PANCHO DENNEY RESIDENT Has the PT tested + for MRSA If YES, has PT been informed?: No Medical Necessity Reason Pt with a Central, PICC or Fol: No Subjective Review of Systems This is a 74-year-old male with past medical history of hypertension, uncontrolled type 2 diabetes mellitus without any medication presented to the ED on 0 10/20/2024 with a chief complaint of left-sided crushing chest pain since morning prior to this visit. the patient stated that on Tuesday when he was working in the [employer] suddenly he felt crashing chest pain, heaviness in the chest, 11/23, radiates to the jaw and left upper arm, diaphoresis, nauseous and took aspirin and call 911. wanting to the EMS the patient was hypertensive and hyperglycemic, blood sugar was 305 when they found the patient on the scene and gave aspirin and nitroglycerin, tele monitoring showed STEMI. in the ER code STEMI was called and patient was taken to the laboratory machinist and underwent PTCA x1 in LAD. Perioperative period patient developed cardiogenic shock, intra-aortic balloon pump was done and also they found critical stenosis of large posterolateral branch of right coronary artery which they can not do stenting because of the hemodynamic status of the patient. On 10/22/2024 cardiology removed the intra-aortic balloon pump and scheduled for next PCI on 10/24/24. Patient was seen and examined in the ICU at the bedside. He is alert oriented x3. complaint of bilateral flank pain. The patient underwent PCI x1 to right coronary artery today and the procedure patient developed intermittent confusion, agitation likely due to sedation. patient also developed hematuria which is now getting better, discontinued Integrilin drip . Urology on board for hematuria and ordered CT abdomen pelvis without contrast and PSA. Patient is unstable for transfer to [place]. Objective vital signs Vital Sign Date Time Temp Pulse Resp B/P (MAP) Pulse Ox O2 Delivery O2 Flow Rate FiO2 10/24/24 18:00 20 98 Room Air* 0 21 10/24/24 16:00 73 10/24/24 15:01 149/86 (107) 10/24/24 12:00 98.0 98.0 Total Intake and Output 10/23/24 10/23/24 10/24/24 15:00 23:00 07:00 Intake Total 104 ml 854 ml 704 ml Output Total 1850 ml 1450 ml Balance 104 ml -996 ml -746 ml medications Current Medications Medications Dose Ordered Sig/Phyllis Route Start Time Stop Time Status Last Admin Dose Admin Sodium Chloride 10 ml Q8HR IV 10/20/24 14:00 10/24/24 15:44 10 ML Aspirin 81 mg DAILY PO 10/22/24 10:00 Cancel Ondansetron HCl 4 mg Q4HP PRN IV 10/20/24 11:30 10/21/24 11:16 4 MG Acetaminophen 650 mg Q6HP PRN PO 10/20/24 11:30 10/20/24 19:56 650 MG Nitroglycerin 0.4 mg Q5MINP PRN SL 10/20/24 11:30 Morphine Sulfate 2 mg Q30M PRN IV 10/20/24 11:30 10/21/24 12:30 2 MG Metoprolol Tartrate 25 mg BID PO 10/20/24 22:00 10/24/24 11:19 25 MG Ticagrelor 90 mg BID PO 10/20/24 22:00 10/24/24 11:19 90 MG Aspirin 81 mg DAILY PO 10/21/24 10:00 10/24/24 11:19 81 MG Dextrose 50 ml UD PRN IV 10/20/24 14:00 Atorvastatin Calcium 80 mg HS PO 10/20/24 22:00 10/23/24 21:57 80 MG Lisinopril 5 mg BID PO 10/20/24 22:00 10/24/24 11:19 5 MG Pantoprazole Sodium 40 mg BID IV 10/21/24 00:15 10/24/24 11:23 40 MG Insulin Human Lispro ACHS IN 10/21/24 07:00 Cancel Diagnostic Test (Pha) 1 strip ACHS 10/21/24 07:00 10/24/24 16:59 1 STRIP Insulin Human Lispro HS IN 10/21/24 22:00 10/23/24 21:59 4 UNITS Insulin Human Lispro AC IN 10/21/24 07:00 10/24/24 17:02 3 UNITS Insulin Glargine 6 units DAILY@1000 IN 10/21/24 11:00 10/24/24 11:41 6 UNITS Insulin Human Lispro 2 units AC IN 10/21/24 11:30 10/24/24 12:53 2 UNITS Acetaminophen/ Hydrocodone Bitart 1 tab Q4HPRN PRN PO 10/21/24 13:00 Labetalol HCl 10 mg Q4HP PRN IV 10/22/24 15:45 Docusate Sodium 100 mg BIDPRN PRN PO 10/23/24 10:15 Ceftriaxone Sodium 50 ml @ 100 mls/hr DAILY@09 IV 10/24/24 10:30 10/24/24 12:33 100 MLS/HR Sodium Chloride 1,000 ml @ 70 mls/hr [id number] IV 10/24/24 10:30 10/24/24 11:24 70 MLS/HR Examination Physical examination: General Appearance: Alert, Oriented X3, Cooperative, No acute distress HEENT: Atraumatic, PERRLA, EOMI, Mucous membrane moist/pink Respiratory: Mild crackles in bilateral bases Cardiovascular: Regular rate, Normal S1, Normal S2, No murmurs, no chest wall tenderness Abdominal: Normal bowel sounds, Soft, No tenderness, No hepatospenomegaly, No masses Extremities: Mild tenderness in the right lower back, No clubbing, No cyanosis, No edema, Normal pulses, No tenderness/swelling Skin: No rashes, No breakdown, No significant lesion Neuro: Normal speech, Strength at 5/5 X4 ext, Normal tone, Sensation intact, Cranial nerves 3-12 NL, Reflexes 2+ Psych/Mental Status: Mental status NL, Mood NL laboratory and microbiology Laboratory Tests 10/24/24 12:01 10/24/24 03:30 Test 10/24/24 03:30 Range/Units Serum Glucose 133 H 74-106 mg/dL Microbiology Date/Time Source Procedure Growth Status 10/20/24 15:10 Nose MRSA Screen - Final Complete Labs and/or images reviewed: Labs reviewed by me, Image(s) reviewed by me Problem List/Assessment/Plan Problem List/Assessment/Plan Assessment and plan: CARDIOVASCULAR: Acute chest pain likely secondary to STEMI Massive anterior CO S/P PTCA x1 in LAD Cardiogenic shock S/P intra-aortic balloon pump removal Critical stenosis of right coronary artery Acute on chronic systolic heart failure secondary to ischemic cardiomyopathy Hypertensive heart disease - chest x-ray showed increased cardiac silhouette, bilateral pulmonary vascular congestion - echo demonstrated entire anterior wall, LV apex, distal half of interventricular septum are remarkably hypokinetic, EF is 35% - cardiology on board and scheduled for another PCI for right coronary artery on 10/24/2024 - Continue eptifibatide 13 mL/hours - continue aspirin 81 mg, Brilinta 90 mg p.o. b.i.d. - Continue atorvastatin 80 mg p.o. at HS - continue metoprolol tartrate 25 mg p.o. b.i.d. - hold GDM T because of blood pressure on the lower side - underwent PCI to right coronary artery today GENITOURINARY: Hematuria likely secondary to anticoagulant Possible BPH - Renal ultrasound revealed normal study - H/H is stable - urology on board - ordered CT abdomen pelvis without contrast and PSA ENDOCRINE: Uncontrolled type 2 diabetes mellitus, hemoglobin A1c 9.7% - continue Lantus 6 units at HS and Humalog 2 units t.i.d. before each meal METABOLIC: Grade 1 obesity, BMI 28.2 kg/ m2 DIET: Cardiac diet DVT prophylax: GI prophylaxis: Protonix Bowel regimen: Code status: Full code LINES/DRAINS/ACCESS: IV access: Peripheral line Drips: eptifibatide Oscar catheter: Placed on 10/20/2024 DISPOSITION: ICU Patient's status discussed with and patient care technician instructor time spent more than 56 minutes, including patient care, chart review, and updating the family. Excluding any procedures. Case discussed with Dr. Redd Plan discussed with: Patient, Spouse, Other (RN) My Orders My Orders Orders - PANCHO DENNEY Procedure Category Date Status Time Sitter At Bedside ORDERS 10/24/24 Transmitted 16:07 Dietary Evaluation Review Comments: Nutrition Recommendation 1) CCHO 75gm + cardiac diet 2) Refer Technology Professional for diabetes education 3) Monitor PO intake, lab values, weight trend, and I/O Expected Outcomes/Goals: To meet >75% estimated needs Blood glucose to improve Fu 3-5 days Date of Service: Oct 24, 2024 Billing Provider: FAHEEM RDED MD Common Visit Codes: 21194-[id number] CARE 30-74 MIN PANCHO DENNEY Oct 24, 2024 18:25 FAHEEM REDD MD Oct 25, 2024 12:40
--- NOTE | 2024-10-24 23:37 | DVHPN2 ---
Progress Note - Dictate Date Seen: Oct 24, 2024 Has the PT tested + for MRSA If YES, has PT been informed?: No Medical Necessity Reason Pt with a Central, PICC or Fol: No Subjective Patient was seen and evaluated in follow up in the ICU. Patient underwent PCI x1 to right coronary artery this afternoon. After procedure, the patient developed intermittent confusion and agitation likely due to sedation. He now also developed hematuria which is now getting better, discontinued Integrilin drip. vital signs Vital Sign Date Time Temp Pulse Resp B/P (MAP) Pulse Ox O2 Delivery O2 Flow Rate FiO2 10/24/24 12:00 15 98 Room Air* 0 21 10/24/24 12:00 65 10/24/24 11:19 140/77 10/24/24 04:00 98.4 98.4 Total Intake and Output 10/23/24 10/23/24 10/24/24 15:00 23:00 07:00 Intake Total 104 ml 854 ml 704 ml Output Total 1850 ml 1450 ml Balance 104 ml -996 ml -746 ml medications Current Medications Medications Dose Ordered Sig/Phyllis Route Start Time Stop Time Status Last Admin Dose Admin Sodium Chloride 10 ml Q8HR IV 10/20/24 14:00 10/24/24 05:54 10 ML Aspirin 81 mg DAILY PO 10/22/24 10:00 Cancel Ondansetron HCl 4 mg Q4HP PRN IV 10/20/24 11:30 10/21/24 11:16 4 MG Acetaminophen 650 mg Q6HP PRN PO 10/20/24 11:30 10/20/24 19:56 650 MG Nitroglycerin 0.4 mg Q5MINP PRN SL 10/20/24 11:30 Morphine Sulfate 2 mg Q30M PRN IV 10/20/24 11:30 10/21/24 12:30 2 MG Metoprolol Tartrate 25 mg BID PO 10/20/24 22:00 10/24/24 11:19 25 MG Ticagrelor 90 mg BID PO 10/20/24 22:00 10/24/24 11:19 90 MG Aspirin 81 mg DAILY PO 10/21/24 10:00 10/24/24 11:19 81 MG Dextrose 50 ml UD PRN IV 10/20/24 14:00 Atorvastatin Calcium 80 mg HS PO 10/20/24 22:00 10/23/24 21:57 80 MG Lisinopril 5 mg BID PO 10/20/24 22:00 10/24/24 11:19 5 MG Pantoprazole Sodium 40 mg BID IV 10/21/24 00:15 10/24/24 11:23 40 MG Insulin Human Lispro ACHS SC 10/21/24 07:00 Cancel Diagnostic Test (Pha) 1 strip ACHS 10/21/24 07:00 10/24/24 11:43 1 STRIP Insulin Human Lispro HS SC 10/21/24 22:00 10/23/24 21:59 4 UNITS Insulin Human Lispro AC AK 10/21/24 07:00 10/24/24 11:44 3 UNITS Insulin Glargine 6 units DAILY@1000 SC 10/21/24 11:00 10/24/24 11:41 6 UNITS Insulin Human Lispro 2 units AC AK 10/21/24 11:30 10/24/24 12:53 2 UNITS Acetaminophen/ Hydrocodone Bitart 1 tab Q4HPRN PRN PO 10/21/24 13:00 Labetalol HCl 10 mg Q4HP PRN IV 10/22/24 15:45 Docusate Sodium 100 mg BIDPRN PRN PO 10/23/24 10:15 Ceftriaxone Sodium 50 ml @ 100 mls/hr DAILY@09 IV 10/24/24 10:30 10/24/24 12:33 100 MLS/HR Sodium Chloride 1,000 ml @ 70 mls/hr [id number] IV 10/24/24 10:30 10/24/24 11:24 70 MLS/HR objective GENERAL: Alert and oriented x 3. No acute distress. EYES: PERRL, EOMI. Anicteric. HENT: Moist mucous membranes. LUNGS: Clear to auscultation bilaterally. CARDIOVASCULAR: Regular rate and rhythm. ABDOMEN: Soft, nontender and nondistended. EXTREMITIES: No edema. NEUROLOGIC: No focal neurological deficits. SKIN: Warm, dry. laboratory and microbiology Laboratory Tests 10/24/24 03:30 Test 10/24/24 03:30 Range/Units Serum Glucose 133 H 74-106 mg/dL Problem List STEMI. DM. Medical noncompliance. Cardiogenic shock. Acute massive anterior wall myocardial infarction. 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 Hematuria. Assessment/Plan Continued all current supportive medical care. Morphine and [place] for pain management. Aspirin, Metoprolol, Brilinta. IV Labetalol for SBP >150. Lisinopril. Nitro SL. GI prophylactics. Additional plan as per the hospital course. Critical care time of 45 minutes provided to include time spent evaluation of patient at bedside, when appropriate patient/family education for diagnosis, treatment plan, review of pertinent medical information and discussion of care with specialty providers and PCP. Dietary Evaluation Review Comments: Nutrition Recommendation 1) [facility] + cardiac diet 2) Refer [employer] Room Assistant for diabetes education 3) Monitor PO intake, lab values, weight trend, and I/O Expected Outcomes/Goals: To meet >75% estimated needs Blood glucose to improve Fu 3-5 days Plan discussed with: Patient DIDI SWANSON MD Oct 24, 2024 13:08
[2024-10-25] VITALS (7 sets, daily range): BP systolic 112–130; BP diastolic 67–95; PULSE 57–66; RESP 16–19; TEMP 97.9–98.8; O2SAT 96–99
[2024-10-25 08:14] LABS: Hemoglobin 14.0 g/dL (13.5-17.5); Nucleated Red Blood Cells % 0.0 %
[2024-10-25 08:16] LABS: Hematocrit 38.9 % (41.0-53.0); Mean Corpuscular Hemoglobin 36.4 pg (28.0-32.0); Mean Corpuscular Volume 101.5 fL (80.0-100.0)
[2024-10-25 08:27] LABS: Anion Gap 13 (5-15); Carbon Dioxide 23 mmol/L (20-31); Chloride 99 mmol/L (98-107); Potassium 4.3 mmol/L (3.5-5.1); Sodium 135 mmol/L (136-145)
[2024-10-25 08:33] LABS: BUN/Creatinine Ratio 22.7 (10.0-20.0); Blood Urea Nitrogen 17 mg/dL (9-23)
[2024-10-25 08:48] LABS: Calcium 8.6 mg/dL (8.7-10.4); Glucose 116 mg/dL (74-106)
--- NOTE | 2024-10-25 10:08 | DVH ---
Exam: CT CT AB PEL WO CON-NO ORAL OR IV History: GROSS HEMATURIA Comparison Study: None Technique: Multidetector spiral CT of the abdomen was performed from lung bases to pubic symphysis. I maging was performed without IV contrast. Axial, coronal and sagittal multiplanar reformats were obta ined from the axial data set by the technologist. Radiation Dose : 1. Abdomen/Pelvis: CTDIvol 19.27 mGy, DLP 1052.17 mGy*cm. Findings: Evaluation of solid organs is limited due to lack of intravenous contrast use. Lung Bases: No acute or significant lung base finding. Normal heart size. No pleural or pericardial effusion. Liver: The liver is normal in size. No focal lesions. Gallbladder and Biliary Tree: Unremarkable Spleen: Unremarkable Pancreas: The pancreas is grossly normal in appearance. Adrenal Glands: Unremarkable Kidneys: Kidneys are grossly normal without calculi or hydronephrosis. Bladder: Bladder is decompressed with a Oscar catheter and cannot be adequately assessed. Bowel: The stomach is grossly normal in appearance. Small bowel and colon are normal in caliber and d istribution. The appendix is not visualized; however, no secondary findings of acute appendicitis ravin ntified. Ascites: Absent Lymphadenopathy: No mesenteric, retroperitoneal or periportal lymphadenopathy. Abdominal Wall and Mesentery: Unremarkable. Vasculature: The visualized abdominal aorta is normal in size and caliber. Evaluation of abdominal a nd pelvic vessels is limited due to lack of intravenous contrast. Pelvic Organs: Unremarkable Musculoskeletal: No aggressive focal bony lesions, acute fractures or dislocation. IMPRESSION: No acute abdominal or pelvic findings. Radiation optimization: All CT scans at this facility use at least one of these dose optimization valentina hniques: automated exposure control mA and/or kV adjustment per patient size (includes targeted exam s where dose is matched to clinical indication) or iterative reconstruction.
[2024-10-25] MEDS ORDERED: TICA90TA PO (13:13)
[2024-10-25] MEDS ORDERED: ATOR-47 PO (13:13)
[2024-10-25] MEDS ORDERED: LISI10TA34 PO (13:13)
[2024-10-25] MEDS ORDERED: METO25TA36 PO (13:13)
[2024-10-25] MEDS ORDERED: ASPI81CH59 PO (13:13)
[2024-10-25] MEDS ORDERED: BLOO1KIT60 XX (13:14)
[2024-10-25] MEDS ORDERED: EMPA1TAB PO (13:14)
[2024-10-25] MEDS ORDERED: METF-490 PO (13:14)
[2024-10-25] MEDS ORDERED: LANC-347 XX (13:14)
--- NOTE | 2024-10-25 17:54 | DVHDSRES ---
Discharge Summary Date of Admission Resident Creating Document: PANCHO DENNEY RESIDENT Oct 20, 2024 at 11:30 Date of Discharge: Oct 25, 2024 Admitting Diagnosis STEMI Wounds: No open wound was present Labs/Diagnostic Data: Laboratory Results Test 10/25/24 12:07 10/25/24 06:55 10/24/24 12:01 10/24/24 03:30 POC Glucose 211 mg/dl (70-106) White Blood Count 8.6 10^3/uL (4.4-10.8) Red Blood Count 3.84 10^6/uL (4.5-5.90) Hemoglobin 14.0 g/dL (13.5-17.5) Hematocrit 38.9 % (41.0-53.0) Mean Corpuscular Volume 101.5 fL (80.0-100.0) Mean Corpuscular Hemoglobin 36.4 pg (28.0-32.0) Mean Corpuscular Hemoglobin Concent 35.9 g/dL (32.0-36.0) Red Cell Distribution Width 14.1 % (11.8-14.3) Platelet Count 197 10^3/uL (140-450) Mean Platelet Volume 8.3 fL (6.9-10.8) Neutrophils (%) (Auto) 77.4 % (37.0-80.0) Lymphocytes (%) (Auto) 10.8 % (10.0-50.0) Monocytes (%) (Auto) 9.6 % (0.0-12.0) Eosinophils (%) (Auto) 1.9 % (0.0-7.0) Basophils (%) (Auto) 0.3 % (0.0-2.0) Neutrophils # (Auto) 6.7 10 ^3/uL (1.6-8.6) Lymphocytes # (Auto) 0.9 10 ^3/uL (0.4-5.4) Monocytes # (Auto) 0.8 10 ^3/uL (0-1.3) Eosinophils # (Auto) 0.2 10 ^3/uL (0-0.8) Basophils # (Auto) 0 10 ^3/uL (0-0.2) Nucleated Red Blood Cells 0.0 % Sodium Level 135 mmol/L (136-145) Potassium Level 4.3 mmol/L (3.5-5.1) Chloride Level 99 mmol/L (98-107) Carbon Dioxide Level 23 mmol/L (20-31) Anion Gap 13 (5-15) Blood Urea Nitrogen 17 mg/dL (9-23) Creatinine 0.75 mg/dL (0.700-1.30) Glomerular Filtration Rate Calc 96 mL/min (>90) BUN/Creatinine Ratio 22.7 (10.0-20.0) Serum Glucose 116 mg/dL (74-106) Calcium Level 8.6 mg/dL (8.7-10.4) Magnesium Level 1.7 mg/dL (1.6-2.6) Prothrombin Time 11.4 sec (9.3-11.8) Prothrombin Time INR 1.08 (0.9-1.15) Activated Partial Thromboplast Time 27.7 SEC (24.5-34.5) Test 10/22/24 03:15 10/21/24 03:33 10/20/24 15:27 10/20/24 11:20 Total Bilirubin 1.6 mg/dL (0.2-1.0) Aspartate Amino Transferase (AST) 294 U/L (13-40) Alanine Aminotransferase (ALT) 57 U/L (7-40) Alkaline Phosphatase 70 U/L (46-116) Total Protein 6.3 g/dL (5.7-8.2) Albumin 4.0 g/dL (3.2-4.8) Triglycerides Level 72 mg/dL (< 150) Cholesterol Level 166 mg/dL (< 200) LDL Cholesterol 100 mg/dL (< 100) HDL Cholesterol 57 mg/dL (40-59) Hemoglobin A1c 9.7 % A1C (<5.7) Urine Color Light-yellow (Yellow) Urine Clarity Clear (Clear) Urine pH 5.5 (5.0-9.0) Urine Specific [place] 1.046 (1.001-1.035) Urine Protein 1+ (Negative) Urine Ketones 2+ (Negative) Urine Blood 3+ /uL (Negative) Urine Nitrite Negative (Negative) Urine Bilirubin Negative (Negative) Urine Urobilinogen Normal mg/dL (Negative) Urine Leukocyte Esterase Negative /uL (Negative) Urine RBC 11 /hpf (0 - 3) Urine Microscopic WBC 1 /HPF (0-3) Urine Squamous Epithelial Cells None seen /hpf (<5) Urine Bacteria None seen /hpf (None Seen) Urine Hyaline Casts Few /lpf (0 - 2) Urine Glucose 4+ mg/dL (Normal) Troponin I High Sensitivity 45 ng/L (</=54) Other Laboratory Tests 10/25/24 06:55 Brief Hx & Hospital Course: Hospital course: This is a 74-year-old male with past medical history of hypertension, uncontrolled type 2 diabetes mellitus without any medication presented to the ED on 0 10/20/2024 with a chief complaint of left-sided crushing chest pain since morning prior to this visit. the patient stated that on Tuesday when he was working in the [employer] suddenly he felt crashing chest pain, heaviness in the chest, 11/23, radiates to the jaw and left upper arm, diaphoresis, nauseous and took aspirin and call 911. wanting to the EMS the patient was hypertensive and hyperglycemic, blood sugar was 305 when they found the patient on the scene and gave aspirin and nitroglycerin, tele monitoring showed STEMI. in the ER code STEMI was called and patient was taken to the laborer pipeline and underwent PTCA x1 in LAD. Perioperative period patient developed cardiogenic shock, intra-aortic balloon pump was done and also they found critical stenosis of large posterolateral branch of right coronary artery which they can not do stenting because of the hemodynamic status of the patient. On 10/22/2024 cardiology removed the intra-aortic balloon pump and scheduled for next PCI on 10/24/24. The patient underwent PCI x1 to right coronary artery on 10/24/24 and post procedure patient developed intermittent confusion, agitation likely due to sedation. patient also developed hematuria which is now getting better, discontinued Integrilin drip . Urology on board for hematuria and ordered CT abdomen pelvis without contrast which was unremarkable and PSA. Hematuria resolved and H&H was stable. Discharge plan was discussed with the patient and explained the importance of continuation of DAPT for 1 year, antidiabetic medication for good control of diabetes and ACEI/ ARb and also advised the patient to book an appointment with primary care doctor in [place] to monitor the blood pressure and titrated the GDMT according to the response of the blood pressure. Patient is being discharged to home. Physical examination: General Appearance: Alert, Oriented X3, Cooperative, No acute distress HEENT: Atraumatic, PERRLA, EOMI, Mucous membrane moist/pink Respiratory: Mild crackles in bilateral bases Cardiovascular: Regular rate, Normal S1, Normal S2, No murmurs, no chest wall tenderness Abdominal: Normal bowel sounds, Soft, No tenderness, No hepatospenomegaly, No masses Extremities: Mild tenderness in the right lower back, No clubbing, No cyanosis, No edema, Normal pulses, No tenderness/swelling Skin: No rashes, No breakdown, No significant lesion Neuro: Normal speech, Strength at 5/5 X4 ext, Normal tone, Sensation intact, Cranial nerves 3-12 NL, Reflexes 2+ Psych/Mental Status: Mental status NL, Mood NL Diagnosis: Acute chest pain likely secondary to STEMI Massive anterior [place] S/P PTCA x2 in LAD and posterior communicating branch of right coronary artery Cardiogenic shock S/P intra-aortic balloon pump removal Acute on chronic systolic heart failure secondary to ischemic cardiomyopathy Hypertensive heart disease Hematuria likely secondary to anticoagulant Possible BPH Uncontrolled type 2 diabetes mellitus, hemoglobin A1c 9.7% Grade 1 obesity, BMI 28.2 kg/ m2 Time spent in discharge including plan discussed with patient and nurses for more than 41 minutes Consults/Reason for consult Cardiology and Urology were consulted Operations or Procedures DATE OF SURGERY: 10/24/2024 TECHNIQUES PERFORMED: * Emergency case. * Ultrasound of the right iliac artery. * Management of conscious sedation. * Shockwave balloon angioplasty of large posterolateral branch of the right coronary artery. * Stenting and angioplasty of mid region of the large posterolateral branch of the right coronary artery with 2.75 x 12 mm Sutton stent of Snip2Code. * Intravascular ultrasound of the right coronary artery. * Balloon angioplasty of posterolateral branch stent with 2.75 x 12 mm noncompliant and mid artery size to 2.90 mm in size. * Intravenous administration of Integrelin. COMPLICATIONS: None. ASSISTANTS: Assisted by our staff including Riley Maddox and Ileana. INDICATIONS: The patient has 95% narrowing of a large posterolateral branch of the right coronary artery and acute coronary syndrome, recent anterior wall myocardial infarction a few days ago. DESCRIPTION OF PROCEDURE: Procedure, risks, benefits discussed in a standard manner. The patient was brought to our lab. The patient's right groin area was shaved, cleaned with soap and Betadine, lidocaine was given and ultrasound was done. A 6-[place] arterial line was placed in a standard manner. The patient was given 100 mcg of nitroglycerin, 2.5 mg of verapamil and 2000 units of heparin were given. JR4 6-[place] guiding catheter was advanced in the right groin. Angiography was done. Angiomax was given. Runthrough wire was passed. Shockwave balloon angioplasty was done in a large posterolateral branch of the right coronary artery and subsequently now we also put a stent 2.75 x 12 mm length Sutton [place] stent. Stent had been fully deployed and deflated balloon has been discontinued and subsequently now we did intravascular ultrasound. We again put a balloon 2.75 x 12, balloon angiography done, mid artery size to 2.90 mm in size. Angiography was done, result was satisfactory. There were no complications. The procedure went well. CONCLUSION: * Prior to performing the procedure #1, the large posterolateral branch of the right coronary artery had a critical stenosis of 95%. JEREMY grade 3 flow. * Post procedure JEREMY grade 3 flow and residual stenosis is 0%. PLAN OF ACTION: Advised to have aspirin, Brilinta, beta-keren, cholesterol-reducing medicine. DATE OF SURGERY: 10/20/2024 TECHNIQUES PERFORMED: * Insertion of the 6-[place] arterial line from the right femoral artery. * Under fluoroscopic guidance, code STEMI. * Management of conscious sedation. * Left coronary angiography. * Mechanical thrombectomy of the left anterior descending artery with the help of the Jupiter catheter. * Balloon angioplasty of the proximal region of the left anterior descending artery with 2.5 x 15 mm length semi-compliant balloon. * Balloon angioplasty of the left anterior descending artery in the proximal, mid, and distal region with 2.5 x 25 mm length semi-compliant balloon. * Stenting and angioplasty of the proximal region of the left anterior descending artery with 3.0 x 22 mm in length Sutton [place] drug-eluting stent of Snip2Code. * Intravascular ultrasound of the left main and also the left anterior descending artery. * Balloon angioplasty of the left anterior descending artery proximal stent with 3.0 x 15 mm length and noncompliant balloon and mid artery size to 3.30 mm in size. * Intracoronary administration of 10 mL of Integrilin and intracoronary administration of the multiple doses of the nicardipine and the nitroglycerin. * Emergency placement of the intra-aortic balloon pump under fluoroscopic guidance and supervision. COMPLICATIONS: None. ASSISTANTS: Assisted by Adrienne Nuñez Joshua and Rani. INDICATIONS: * The patient has a code STEMI, acute anterior wall myocardial infarction. * 100% occlusion of the left anterior descending artery in the proximal region, JEREMY grade 0 flow. DESCRIPTION OF PROCEDURE: The risks and benefits all have been explained to the patient and understood very well. We have changed the 6-[place] short arterial line to long 6-[place] arterial line. Initially, we have put the guiding catheter XB 3.5, unable to engage it. Subsequently, we put a XB 4, unable to engage it. Subsequently, now we have put a 6-[place] 4.5 guiding catheter and the left coronary angiography also has been done in a standard manner. Subsequently, the patient was started on Angiomax and then we passed a Runthrough wire. After putting the Runthrough wire, the Jupiter catheter thrombectomy was done a few times. About 20 mL of blood was aspirated. The artery did not open up after doing the mechanical thrombectomy. Subsequently, the balloon 2.5 x 15 mm length semi-compliant balloon was passed and a balloon angioplasty was done in the proximal region of the left anterior descending artery, but it was not able to restore the blood flow. Subsequently, 2.5 x 25 mm length of long semi-compliant balloon was passed and the balloon angioplasty was done in the proximal, mid, and distal region of the left anterior descending artery by taking the balloon gradually up to 8 and 9 and to 13 atmosphere. Balloon had been discontinued and angiography was done and blood flow in the left anterior descending artery had been restored very well. Now, we put a 3.0 x 22 mm in length Sutton [place] drug-eluting stent of Snip2Code deployed from the proximal to mid region of the left anterior descending artery and gradually it had been taken up to the 13 atmosphere. Inflated for 21 seconds x2 and the balloon had been deflated and angiography was done and the result was satisfactory. Subsequently, intravascular ultrasound also had been done. After doing the intravascular ultrasound, we noted that we need to still slightly expand the stent. So meanwhile, the patient was given intracoronary 10 mL of the Integrilin. The patient was given nicardipine, nitroglycerin, and subsequently the noncompliant balloon was passed and a balloon angioplasty was done in the proximal, mid, and distal region of the stent, taken the balloon up to the 27 atmosphere. The whole artery site was made to 3.30 mm in size and the procedure went very well. Subsequently, the balloon wire all had been discontinued. the patient is completely pain free. During this procedure, it has been noted that the patient's blood pressure was dropping down, so I had to put him on the Levophed drip. The decision has been made to put a balloon pump because currently the patient is dependent on the Levophed and it was a proximal left anterior descending artery, which was difficult to do the intervention. Now, subsequently, the 6-[place] arterial line had been exchanged to the 8-[place] arterial line and the intra-aortic balloon pump has been passed. After putting the balloon pump, intercostal space and had been sensing and capturing very well. The procedure was done under fluoroscopy. Arterial line had been. The balloon pump has been connected to the intra-aortic balloon pump line also. It will put to 1:1 augmentation. The lines had been sutured. CONCLUSION: The left anterior descending artery proximally 100% acutely occluded, JEREMY grade 0 flow and post procedure is JEREMY grade 3 flow, 100% widely open. No spasm. No dissection. No thrombosis. PLAN OF ACTION: At this time, * Aspirin. * Brilinta 90 mg b.i.d. * Metoprolol. * Lipitor. * Diabetes control. EXAM: Two-dimensional and M-mode echocardiogram with Doppler and color Doppler. Blood Pressure: 159/92 mmHg INDICATION STEMI RISK FACTORS Height: 5'8", Weight: 185 DIMENSIONS LVDd 4.7 (3.8-5.7cm) LA (2D) 4.0 (1.9-4.0cm) Aortic Root 4.5 (2.0- 3.7cm) LVDs 3.4 (2.5-4.0cm) LA (MM) (1.9-4.0cm) Aortic Cusp Exc 1.7 (1.5- 2.0cm) EF (%) 45.0 (55-70%) Rt. Atrium 3.8 (1.9-4.0cm) Asc. Aorta 4.4 cm IVSd 1.5 (0.7-1.1cm) RV (D) 3.5 (1.8-2.4cm) PWd 1.2 (0.7-1.1cm) Mitral Valve Mitral Mitral Stenosis E wave 0.68m/s MV Mean GR. mmHg A wave 0.85m/s MV Peak GR. mmHg E/A ratio 0.8 2D MVA cm2 DECEL Time 215ms PRESS 1/2 Time ms Aortic Valve Aortic Valve Aortic Stenosis V1 1.03m/s AO Mean GR. 2mmHg V2 1.13m/s AO Peak GR. 5mmHg LVOT Diameter 2.1 (1.8-2.4cm) Doppler PARKER 3.16cm2 Pulmonic Valve V2 0.88m/s Tricuspid Valve TR Velocity 2.90m/s RVSP 42mmHg Other Information Technically limited study due to Patient lying flat on balloon pump. Conclusion ENTIRE ANTERIOR WALL,LV APEX,DISTAL HALF OF IVS ARE REMARKABLY HYPOKINETIC LV EF IS 35% AND IS MODERATELY REDUCED NORMAL VALVES NORMAL RV FUNCTION NO EFFUSION Condition at Discharge: Stable Final Diagnosis/Problems List Acute chest pain likely secondary to STEMI Massive anterior [place] S/P PTCA x2 in LAD and posterior communicating branch of right coronary artery Cardiogenic shock S/P intra-aortic balloon pump removal Acute on chronic systolic heart failure secondary to ischemic cardiomyopathy Hypertensive heart disease Hematuria likely secondary to anticoagulant Possible BPH Uncontrolled type 2 diabetes mellitus, hemoglobin A1c 9.7% Grade 1 obesity, BMI 28.2 kg/ m2 Discharge Disposition: Home Discharge Instruct/Medications Diet: Consistent carbohydrate, Cardiac 2g Na,low cholest Activity: No Restrictions, As Tolerated Follow Up/Referral: Follow up with PCP in 1 week Follow up with Cardiology in 1 to 2 weeks. Medications: As per EMR Scheduled Aspirin (Aspirin Low Dose), 1 TAB PO DAILY Atorvastatin Calcium (Atorvastatin Calcium), 1 TAB PO DAILY Empagliflozin (Jardiance), 10 MG PO DAILY Lisinopril (Lisinopril), 5 MG PO DAILY Metformin Hydrochloride (Metformin Hcl Er), 1 TAB PO BID Metoprolol Succinate (Toprol Xl), 1 TAB PO DAILY Ticagrelor Base (Brilinta), 90 MG PO BID Durable Medical Equipment Blood Glucose Monitoring Suppl (D-Care Glucometer Kit/Glu W/Device), KIT XX TID, (DME) Lancets (Freestyle Lancets), AC XX TID, (DME) Discharge Statement: "Patient was advised to return to the ER or call 911 if any headaches, dizziness, shortness of breath, chest pain, abdominal pain, bleeding, fevers, or worsening of medical condition. Patient was counseled about treatment plan, medications, possible side effects, patientverbalized understanding. All questions were answered to the best of my ability. This discharge took greater then 30 minutes in planning, reviewing documentation, counseling the patient, and discussing with other team members." ASSESSMENT ASSESSMENT Assessment STEMI, s/p PTCAX2 Date of Service: Oct 25, 2024 Billing Provider: FAHEEM REDD MD Common Visit Codes: 26706-GAT/OBS DISCH DAY >30min PANCHO DENNEY RESIDENT Oct 25, 2024 17:54 FAHEEM REDD MD Oct 27, 2024 12:08
--- NOTE | 2024-10-25 23:24 | DVHPN2 ---
Progress Note - Dictate Date Seen: Oct 25, 2024 Has the PT tested + for MRSA If YES, has PT been informed?: No Medical Necessity Reason Pt with a Central, PICC or Fol: No Subjective Patient was seen and evaluated in follow up. Patient was downgraded to tele bed. CT ABD PEL showed no acute abdominal or pelvic findings. Telemetry reviewed. vital signs Vital Sign Date Time Temp Pulse Resp B/P (MAP) Pulse Ox O2 Delivery O2 Flow Rate FiO2 10/25/24 12:33 98.4 62 16 118/74 (89) 99 98.4 10/25/24 08:00 Room Air* 0 21 Total Intake and Output 10/24/24 10/24/24 10/25/24 15:00 23:00 07:00 Intake Total 369 ml 930 ml Output Total 550 ml 750 ml Balance 369 ml 380 ml -750 ml medications Current Medications Medications Dose Ordered Sig/Phyllis Route Start Time Stop Time Status Last Admin Dose Admin Sodium Chloride 10 ml Q8HR IV 10/20/24 14:00 10/24/24 21:38 10 ML Aspirin 81 mg DAILY PO 10/22/24 10:00 Cancel Ondansetron HCl 4 mg Q4HP PRN IV 10/20/24 11:30 10/21/24 11:16 4 MG Acetaminophen 650 mg Q6HP PRN PO 10/20/24 11:30 10/20/24 19:56 650 MG Nitroglycerin 0.4 mg Q5MINP PRN SL 10/20/24 11:30 Morphine Sulfate 2 mg Q30M PRN IV 10/20/24 11:30 10/21/24 12:30 2 MG Metoprolol Tartrate 25 mg BID PO 10/20/24 22:00 10/25/24 10:12 25 MG Ticagrelor 90 mg BID PO 10/20/24 22:00 10/25/24 10:12 90 MG Aspirin 81 mg DAILY PO 10/21/24 10:00 10/25/24 10:12 81 MG Dextrose 50 ml UD PRN IV 10/20/24 14:00 Atorvastatin Calcium 80 mg HS PO 10/20/24 22:00 10/24/24 21:33 80 MG Lisinopril 5 mg BID PO 10/20/24 22:00 10/25/24 10:12 5 MG Pantoprazole Sodium 40 mg BID IV 10/21/24 00:15 10/25/24 10:11 40 MG Insulin Human Lispro ACHS SC 10/21/24 07:00 Cancel Diagnostic Test (Pha) 1 strip ACHS 10/21/24 07:00 10/25/24 12:23 1 STRIP Insulin Human Lispro HS MN 10/21/24 22:00 10/24/24 21:31 4 UNITS Insulin Human Lispro AC SC 10/21/24 07:00 10/25/24 12:22 6 UNITS Insulin Glargine 6 units DAILY@1000 SC 10/21/24 11:00 10/25/24 12:21 6 UNITS Insulin Human Lispro 2 units AC MN 10/21/24 11:30 10/24/24 19:47 2 UNITS Acetaminophen/ Hydrocodone Bitart 1 tab Q4HPRN PRN PO 10/21/24 13:00 Labetalol HCl 10 mg Q4HP PRN IV 10/22/24 15:45 Docusate Sodium 100 mg BIDPRN PRN PO 10/23/24 10:15 Ceftriaxone Sodium 50 ml @ 100 mls/hr DAILY@09 IV 10/24/24 10:30 10/25/24 10:11 100 MLS/HR Sodium Chloride 1,000 ml @ 70 mls/hr [id number] IV 10/24/24 10:30 10/24/24 11:24 70 MLS/HR objective GENERAL: Alert and oriented x 3. No acute distress. EYES: PERRL, EOMI. Anicteric. HENT: Moist mucous membranes. LUNGS: Clear to auscultation bilaterally. CARDIOVASCULAR: Regular rate and rhythm. ABDOMEN: Soft, nontender and nondistended. EXTREMITIES: No edema. NEUROLOGIC: No focal neurological deficits. SKIN: Warm, dry. laboratory and microbiology Laboratory Tests 10/25/24 06:55 Test 10/25/24 06:55 Range/Units Serum Glucose 116 H 74-106 mg/dL Problem List STEMI. DM. Medical noncompliance. Cardiogenic shock. Acute massive anterior wall myocardial infarction. 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 Hematuria. Assessment/Plan Continued all current supportive medical care. Nitro SL. Lisinopril. GI prophylactics. Aspirin, Metoprolol, Brilinta. IV Labetalol for SBP >150. Morphine and [place] for pain management. Additional plan as per the hospital course. Dietary Evaluation Review Comments: Nutrition Recommendation 1) CCHO 75gm + cardiac diet 2) Refer [employer] for diabetes education 3) Monitor PO intake, lab values, weight trend, and I/O Expected Outcomes/Goals: To meet >75% estimated needs Blood glucose to improve Fu 3-5 days Plan discussed with: Patient DIDI SWANSON MD Oct 25, 2024 12:46
== END 2024-10-25 18:06 | disposition home or self-care (01) | DRG 270 ==
LOC: EDBD 11:05 → ER 11:05 → OVERFLOW 11:30 → ICU WEST 16:57 → TELE-WESTW 10-24 22:06
PROVIDERS: ADMIT Internal Medicine; ATTEND Specialist
PROC: 5A02210 Assistance with Cardiac Output using Balloon Pump, Continuous (ICD-10-PCS; principal; 2024-10-20)
PROC: 027034Z Dilation of Coronary Artery, One Artery with Drug-eluting Intraluminal Device, Percutaneous Approach (ICD-10-PCS; 2024-10-20)
PROC: 02703ZZ Dilation of Coronary Artery, One Artery, Percutaneous Approach (ICD-10-PCS; 2024-10-20)
PROC: 02C03ZZ Extirpation of Matter from Coronary Artery, One Artery, Percutaneous Approach (ICD-10-PCS; 2024-10-20)
PROC: 04HY32Z Insertion of Monitoring Device into Lower Artery, Percutaneous Approach (ICD-10-PCS; 2024-10-20)
PROC: B240ZZ3 Ultrasonography of Single Coronary Artery, Intravascular (ICD-10-PCS; 2024-10-20)
PROC: 3E033PZ Introduction of Platelet Inhibitor into Peripheral Vein, Percutaneous Approach (ICD-10-PCS; 2024-10-20)
PROC: 4A023N7 Measurement of Cardiac Sampling and Pressure, Left Heart, Percutaneous Approach (ICD-10-PCS; 2024-10-20)
PROC: B211YZZ Fluoroscopy of Multiple Coronary Arteries using Other Contrast (ICD-10-PCS; 2024-10-20)
PROC: B215YZZ Fluoroscopy of Left Heart using Other Contrast (ICD-10-PCS; 2024-10-20)
PROC: 02703ZZ Dilation of Coronary Artery, One Artery, Percutaneous Approach (ICD-10-PCS; 2024-10-24)
PROC: 027034Z Dilation of Coronary Artery, One Artery with Drug-eluting Intraluminal Device, Percutaneous Approach (ICD-10-PCS; 2024-10-24)
PROC: B44FZZZ Ultrasonography of Right Lower Extremity Arteries (ICD-10-PCS; 2024-10-24)
PROC: 3E033PZ Introduction of Platelet Inhibitor into Peripheral Vein, Percutaneous Approach (ICD-10-PCS; 2024-10-24)
PROC: B240ZZ3 Ultrasonography of Single Coronary Artery, Intravascular (ICD-10-PCS; 2024-10-24)
DX: I21.02 ST elevation (STEMI) myocardial infarction involving left anterior descending coronary artery (principal); I50.23 Acute on chronic systolic (congestive) heart failure; R57.0 Cardiogenic shock; I21.09 ST elevation (STEMI) myocardial infarction involving other coronary artery of anterior wall; I11.0 Hypertensive heart disease with heart failure; E11.65 Type 2 diabetes mellitus with hyperglycemia; E66.9 Obesity, unspecified; M79.81 Nontraumatic hematoma of soft tissue; I25.10 Atherosclerotic heart disease of native coronary artery without angina pectoris; E78.5 Hyperlipidemia, unspecified; T45.515A Adverse effect of anticoagulants, initial encounter; K80.20 Calculus of gallbladder without cholecystitis without obstruction; I25.5 Ischemic cardiomyopathy; R31.0 Gross hematuria; Z91.148 Patient's other noncompliance with medication regimen for other reason; Z79.4 Long term (current) use of insulin; Z68.28 Body mass index [BMI] 28.0-28.9, adult; Y83.8 Other surgical procedures as the cause of abnormal reaction of the patient, or of later complication, without mention of misadventure at the time of the procedure; Y71.8 Miscellaneous cardiovascular devices associated with adverse incidents, not elsewhere classified
CPT/HCPCS: 33967; 36415; 71045; 74176; 76775; 80048; 80053; 80061; 81001; 82962; 83036; 83735; 84132; 84154; 84484; 85025; 85610; 85730; 87081; 92941; 92973; 92978; 93005; 93306; 93458; 96365; 96375; 99152; 99291; A4565; G0378; J1815; J2003; J2250; J2405; J2470; Q9967

== ENCOUNTER 2024-11-01 22:42 | Inpatient (IN) | payer OTHER ==
[~2024-11-01] VITALS: Ht 180.3 cm; Wt 72.4 kg
[~2024-11-01 22:42] MED LIST: ASPI81CH59 PO; ATOR-47 PO; BLOO1KIT60 XX; EMPA1TAB PO; LANC-347 XX; LISI10TA34 PO; METF-490 PO; METO25TA36 PO; TICA90TA PO
[2024-11-01 23:19] LABS: Hemoglobin 14.5 g/dL (13.5-17.5); Nucleated Red Blood Cells % 0.1 %
[2024-11-01 23:21] LABS: Hematocrit 40.3 % (41.0-53.0); Mean Corpuscular Hemoglobin 35.9 pg (28.0-32.0); Mean Corpuscular Volume 100.1 fL (80.0-100.0)
[2024-11-01 23:30] VITALS: PULSE 67; RESP 12; O2SAT 98
[2024-11-01 23:30] LABS: Chloride 99 mmol/L (98-107); Potassium 4.5 mmol/L (3.5-5.1)
[2024-11-01 23:31] LABS: Anion Gap 9 (5-15); Calcium 9.1 mg/dL (8.7-10.4); Carbon Dioxide 25 mmol/L (20-31)
[2024-11-01 23:32] LABS: Sodium 133 mmol/L (136-145)
[2024-11-01 23:36] LABS: BUN/Creatinine Ratio 9.1 (10.0-20.0); Blood Urea Nitrogen 10 mg/dL (9-23)
[2024-11-01 23:37] LABS: Glucose 177 mg/dL (74-106)
--- NOTE | 2024-11-01 23:38 | ED.PDOC ---
History of Present Illness HPI Comments 74-year-old came to ER due to generalized weakness. Patient was discharged October 25 and was diagnosed with 1. Acute chest pain likely secondary to STEMI, 2. Massive anterior IA, 3. S/P PTCA x2 in LAD and posterior communicating branch of right coronary artery, 4. Cardiogenic shock S/P intra-aortic balloon pump removal, 5. Acute on chronic systolic heart failure secondary to ischemic cardiomyopathy, 6. Hypertensive heart disease, 7. Hematuria likely secondary to anticoagulant, 8. Possible BPH, 9. Uncontrolled type 2 diabetes mellitus, hemoglobin A1c 9.7%, 10. Grade 1 obesity. Patient was apparently well until 3 hours prior to arrival with the patient developed sudden onset generalized weakness, patient states he feels dehydrated. Denies any acute chest pains or shortness a breath REVIEW OF SYSTEMS: General: No fever, no chills, or fatigue HEENT: No sore throat, no earache, no congestion, no neck pain. Cardiac: No chest pain. No palpitations. Lungs: No shortness of breath, no cough. GI: No nausea, no vomiting, no diarrhea, no constipation, no abdominal pain : No dysuria, frequency, or urgency. No hematuria. Musculoskeletal: No joint pain , no joint swelling, no extremity edema. Skin: No rash, no itching. Neuro: No headache, no dizziness, (+) weakness EXAM: General: Awake, alert and oriented. No acute distress. Skin: Skin in warm, dry and intact. Appropriate color for ethnicity. HEENT: The head is normocephalic and atraumatic. Conjunctivae are clear without exudates or hemorrhage. Sclera is non-icteric. EOM are intact. No signs of nystagmus. Eyelids are normal in appearance without swelling or lesions. Oral mucosa is pink and moist Neck: The neck is supple with normal range of motion. No JVD. Cardiac: Heart rate and rhythm are normal. No murmurs, gallops, or rubs are a uscultated. Respiratory: No signs of respiratory distress. Lung sounds are clear in all lobes bilaterally without rales, rhonchi, or wheezes. Abdominal: Abdomen is soft, non-tender without distention. Bowel sounds are present and normoactive in all four quadrants. Extremities: Upper and lower extremities are atraumatic in appearance without deformity or edema. Neurological: The patient is awake, alert and oriented to person, place, and time with normal speech. Speech is clear. There is no facial asymmetry. Psychiatric: Appropriate mood and affect. Good judgement and insight Chief Complaint: General Weakness Time Seen by MD: 23:38 Reviewed Notes: Nurses Notes Allergies: Coded Allergies: NO KNOWN ALLERGIES (Unverified , 10/20/24) Home Meds Active Scripts Lancets (Freestyle Lancets) Lancets Mis, AC XX TID, #200 Check blood sugar 3 times a day [facility] 10/25/24 Blood Glucose Monitoring Suppl (D-Care Glucometer Kit/Glu W/Device) 1 Kit Kit, KIT XX TID, #1 Check blood sugar 3 times a day Prov:[facility] 10/25/24 Empagliflozin (Jardiance) 10 Mg Tab, 10 MG PO DAILY for 30 Days, #30 TAB 1 Refill Prov:[facility]AGJIT [facility] 10/25/24 Metformin Hydrochloride (METFORMIN HCL ER) 1,000 Mg Tab, 1 TAB PO BID, #60 TAB 1 Refill Prov:[facility] 10/25/24 Metoprolol Succinate (Toprol Xl) 25 Mg Tab, 1 TAB PO DAILY for 30 Days, #30 TAB 1 Refill Prov:[facility] 10/25/24 Lisinopril (Lisinopril) 10 Mg Tab, 5 MG PO DAILY for 30 Days, #15 TAB 1 Refill Prov:[facility] 10/25/24 Atorvastatin Calcium (ATORVASTATIN CALCIUM) 80 Mg Tab, 1 TAB PO DAILY for 30 Days, #30 TAB 3 [facility] 10/25/24 Ticagrelor Base (BRILINTA) 90 Mg Tab, 90 MG PO BID for 30 Days, #60 TAB 2 Refills Prov:[facility]AGJIT [facility] 10/25/24 Aspirin (Aspirin Low Dose) 81 Mg Chw, 1 TAB PO DAILY for 30 Days, #30 TAB 3 Refills Prov:[facility]JAGJIT [facility] 10/25/24 Information Source: Patient Mode of Arrival: Ambulatory Past Medical History PAST MEDICAL HISTORY: CAD, CHF, DM, Gallstones, HTN, IA Surgical History: PTCA Family History Family History: Reviewed,noncontributory to illness Social History Smoker: Non-Smoker Alcohol: Denies ETOH Use Drugs: Denies Drug Use Lives In: Home Was a procedure done? Was a procedure done?: No EKG EKG : Pulse Rate (adult): 61 Cardiac Rhythm: NSR ST: New, Inf, Infarct Comments Supraventricular bigeminy, left anterior fascicular block, ST elevations in lateral leads Differential Dx Considerations may include: Anemia, electrolyte imbalance, dehydration, mi, weakness X-Ray, Labs, Meds, VS Vital Signs Date Time Temp Pulse Resp B/P (MAP) Pulse Ox O2 Delivery O2 Flow Rate FiO2 11/01/24 23:51 62 12 135/76 11/01/24 23:38 61 11/01/24 23:11 98.3 76 16 142/83 100 98.3 11/01/24 22:51 61 Lab Test 11/01/24 23:00 Range/Units White Blood Count 8.0 4.4-10.8 10^3/uL Red Blood Count 4.02 L 4.5-5.90 10^6/uL Hemoglobin 14.5 13.5-17.5 g/dL Hematocrit 40.3 L 41.0-53.0 % Mean Corpuscular Volume 100.1 H 80.0-100.0 fL Mean Corpuscular Hemoglobin 35.9 H 28.0-32.0 pg Mean Corpuscular Hemoglobin Concent 35.9 32.0-36.0 g/dL Red Cell Distribution Width 14.1 11.8-14.3 % Platelet Count 342 140-450 10^3/uL Mean Platelet Volume 7.3 6.9-10.8 fL Neutrophils (%) (Auto) 72.4 37.0-80.0 % Lymphocytes (%) (Auto) 17.7 10.0-50.0 % Monocytes (%) (Auto) 8.4 0.0-12.0 % Eosinophils (%) (Auto) 1.2 0.0-7.0 % Basophils (%) (Auto) 0.3 0.0-2.0 % Neutrophils # (Auto) 5.8 1.6-8.6 10 ^3/uL Lymphocytes # (Auto) 1.4 0.4-5.4 10 ^3/uL Monocytes # (Auto) 0.7 0-1.3 10 ^3/uL Eosinophils # (Auto) 0.1 0-0.8 10 ^3/uL Basophils # (Auto) 0 0-0.2 10 ^3/uL Nucleated Red Blood Cells 0.1 % Sodium Level 133 L 136-145 mmol/L Potassium Level 4.5 3.5-5.1 mmol/L Chloride Level 99 98-107 mmol/L Carbon Dioxide Level 25 20-31 mmol/L Anion Gap 9 5-15 Blood Urea Nitrogen 10 9-23 mg/dL Creatinine 1.10 0.700-1.30 mg/dL Glomerular Filtration Rate Calc 71 >90 mL/min BUN/Creatinine Ratio 9.1 L 10.0-20.0 Serum Glucose 177 H 74-106 mg/dL Calcium Level 9.1 8.7-10.4 mg/dL Troponin I High Sensitivity 447 *H </=54 ng/L B-Type Natriuretic Peptide 440.56 0-100 pg/mL Current Medications Medications (Trade) Dose Ordered Sig/Phyllis Route Start Time Stop Time Status Last Admin Aspirin 324 mg ONCE ONCE PO 11/01/24 23:00 11/01/24 23:01 DC 11/01/24 23:51 Morphine Sulfate 2 mg ONCE ONCE IV 11/01/24 23:00 11/01/24 23:01 DC 11/01/24 23:51 Time of 1ST Reevaluation: 23:32 Reevaluation 1ST: Unchanged Patient Education/Counseling: Need For Follow Up Family Education/Counseling: Need For Follow Up SEPSIS Sepsis Screen Date sepsis recognized/suspect: Nov 01, 2024 Time Sepsis recognized/suspect: 2310 Recent Procedure: No On Antibiotic Therapy: No Respiratory Rate >20: No Heart Rate >90: No Temp<36 C (96.8 F) or >38.3 C: No SBP <90 or MAP <65 mmHG: No New Acute Mental Status Change: No Is the patient on CPAP, BIPAP,: No Physician Orders Electrocardigram (11/01/24 22:53) Chest Xray 1 View (11/01/24 22:53) Vital Signs Q1HR (11/01/24 22:53) Saline Lock (11/01/24 22:53) Bi Report Developer (11/01/24 ) Electrocardigram (11/01/24 23:53) Electrocardigram (11/02/24 01:53) Troponin-I Hs (11/01/24 23:53) Troponin-I Hs (11/02/24 01:53) Vital Signs Date Time Temp Pulse Resp B/P (MAP) Pulse Ox O2 Delivery O2 Flow Rate FiO2 11/01/24 23:51 62 12 135/76 11/01/24 23:38 61 11/01/24 23:11 98.3 76 16 142/83 100 98.3 11/01/24 22:51 61 Laboratory Tests Test 11/01/24 23:00 White Blood Count 8.0 10^3/uL (4.4-10.8) Medications Medications Dose Ordered Sig/Phyllis Route Start Time Stop Time Status Last Admin Dose Admin Aspirin 324 mg ONCE ONCE PO 11/01/24 23:00 11/01/24 23:01 DC 11/01/24 23:51 Morphine Sulfate 2 mg ONCE ONCE IV 11/01/24 23:00 11/01/24 23:01 DC 11/01/24 23:51 Departure 1 Departure Time of Disposition: 23:57 Impression: Primary Impression: Generalized weakness Additional Impressions: Coronary artery disease Status post angioplasty Disposition: ADMITTED INPATIENT Condition: Stable Comments 74-year-old male who presents with generalized weakness status post STEMI with angioplasty Discussed with Dr. Haddad (cardiology). He reviewed EKG and states changes or from previous IA. no acute STEMI. He recommends admission. He will see patient in the morning. Patient admitted to hospitalist service for further treatment, evaluation and monitoring. Extensive evaluation was performed in attempt to identify or rule out: (See differential diagnosis section) The following tests were ordered, and results were reviewed by me and discussed with patient: (See diagnostic results section) The following test were independently interpreted by me: EKG I reviewed and agreed with the following test results read by other providers: Chest x-ray I reviewed the following notes from the pt's past medical encounters: Most recent admission for STEMI Additional information was gathered from interviewing the following independent historians: Patient's at bedside Discussion of management or test interpretation with external physician/other qualified health cardiac care unit nurse: Dr. Haddad Decision regarding hospitalization or escalation of hospital level of care: Risk and benefits of admission for further treatment of patient's condition was considered. Due to patient's current clinical condition, high risk of decline and poor outcome if discharged and need for further inpatient management and monitoring, patient will be admitted to the hospital. Discussed with patient. Critical Care Note Critical Care Time?: Yes (35 min-critical care time only) Stability Stability form required: No Heart Score Heart Score: Heart Score Response (Comments) Value History N/A 0 EKG N/A 0 Age N/A 0 Risk Factors N/A 0 Troponin N/A 0 Total 0 I personally scribed for TIMBO CONTRERAS MD ([email or web address]) on 11/01/24 at 23:38. Electronically submitted by Abdirahman Karimi ([facility]). TIMBO CONTRERAS MD Nov 01, 2024 23:38
--- NOTE | 2024-11-01 23:42 | DVH ---
CHEST RADIOGRAPH Indication: cp Technique: 1 view Comparison: XY CHEST PORTABLE on DOS: 10/22/24, XY CHEST PORTABLE on DOS: 10/21/24, XY CHEST XRAY 1 VIEW on DOS: 10/20/24, XY CHEST XRAY 1 VIEW on DOS: 10/20/24 FINDINGS: Lines and Tubes: External leads. Lungs/Pleura: No focal consolidation, pleural effusion or pneumothorax. Cardiomediastinum: Unremarkable. Other: No acute osseous abnormality. IMPRESSION: 1. No acute cardiopulmonary abnormality.
[2024-11-01] MEDS: MORPHINE SULFATE INJ 2 MG/ml SYRG IV ONE (23:51)
[2024-11-02] VITALS (8 sets, daily range): BP systolic 102–135; BP diastolic 63–85; PULSE 64–118; RESP 14–20; TEMP 96.6–98.5; O2SAT 91–98
--- NOTE | 2024-11-02 00:27 | ECG ---
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
--- NOTE | 2024-11-02 00:27 | ECG ---
[facility] Test Date: 2024-11-01 Test Time: 22:51:20 Pat Name: NADIRA JIMÉNEZ Department: Room: 0280T Gender: M [employer]: [employer] : 1950 Requested By: TIMBO CONTRERAS Order Number: [id number] Reading MD: Jero Casillas Measurements Intervals [place] Rate: 61 P: -16 VA: 153 QRS: -52 QRSD: 106 T: 227 QT: 417 QTc: 420 Interpretive Statements Sinus rhythm Supraventricular bigeminy LAD, consider left anterior fascicular block Anterior infarct, acute (LAD) Electronically Signed On 11-05-2024 18:40:27 PDT by Jero Casillas Please click the below link to view image of tracing.
[2024-11-02] MEDS ORDERED: ONDANSETRON HCL 4 MG/2 ML VIAL IV PRN (01:45)
[2024-11-02] MEDS ORDERED: DOCUSATE SOD 100 MG CAP PO PRN (01:45)
[2024-11-02] MEDS ORDERED: DEXTROSE (50%) 50ML SYRG IV PRN (01:45)
[2024-11-02] MEDS ORDERED: HYDROcodone-ACET 5/325MG TAB PO PRN (01:45)
[2024-11-02] MEDS ORDERED: ACETAMINOPHEN 325 MG TAB PO PRN (01:45)
--- NOTE | 2024-11-02 02:14 | ECG ---
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
[2024-11-02] MEDS: FUROSEMIDE 40 MG/4 ML VIAL IV ONE (02:15)
[2024-11-02] MEDS ORDERED: NITROGLYCERIN 0.4 MG SL TAB SL PRN (03:45)
[2024-11-02] MEDS ORDERED: MORPHINE SULFATE INJ 2 MG/ml SYRG IV PRN (03:45)
[2024-11-02 04:05] LABS: Urine Protein, UAD Negative (Negative)
--- NOTE | 2024-11-02 04:10 | DVHHP2 ---
History of Present Illness Reason for Visit: Acute exacerbation of congestive heart failure History of Present Illness The patient is a 74 year male with past medical history of CHF, DM, Coronary art michelle disease, hypertension, [place], and gallbladder who presented to [facility] ED with complaint of generalized weakness. Patient was discharged October 25 and was diagnosed with Acute chest pain likely secondary to STEMI, Massive anterior [place], S/P PTCA x2 in LAD and posterior communicating branch of right coronary artery, Cardiogenic shock, S/P intra-aortic balloon pump removal, patient was seen and evaluated in the ED, laboratory data shows WBC 8.0, platelets 342, sodium 133, potassium 4.5, BUN 10, creatinine 1.10, glucose 177, calcium 9.1, BNP 440.56, troponin 447, blood pressure 135/76, heart rate 74, temperature 98.3 F, O2 saturation 98% on room air. Chest x-ray show no acute cardiopulmonary abnormality. Please see medication orders section in the computer. On my assessment, patient denied chest pain, no headache, no dizziness, no shortness of breaths, no nausea, no vomiting, no fever, no chills. Patient was admitted for further evaluation and medical management. Past Medical History CAD, CHF, DM, Gallstones, HTN, [place] Past Surgical History PTCA Family History Reviewed, noncontributory to the management of this case. Past Social History The patient lives at home, denies smoking, alcohol or illicit drugs abuse. Review of Systems Constitutional: Yes: Weakness; No: Fever, Chills, Sweats, Malaise, Other Eyes: No: Pain, Vision change, Conjunctivae inflammation, Eyelid inflammation, Other, Redness ENT: No: Ear pain, Ear discharge, Nose pain, Nose discharge, Nose congestion, Mouth pain, Mouth swelling, Throat pain, Throat swelling, Other Respiratory: No: Cough, Dry, Shortness of breath, SOB with excertion, Wheezing, Hemoptysis, Pleuritic Pain, Sputum, Wheezing, Other Cardiovascular: No: Chest Pain, Palpitations, Orthopnea, Paroxysmal Noc. Dyspnea, Edema, Lt Headedness, Other Gastrointestinal: No: Nausea, Vomiting, Abdominal Pain, Diarrhea, Constipation, Melena, Hematochezia, Other Genitourinary: No Dysuria, No Frequency, No Incontinence, No Hematuria, No Retention, No Other Musculoskeletal: No: other, neck pain, shoulder pain, arm pain, back pain, hand pain, leg pain, foot pain Skin: No: Rash, Lesions, Jaundice, Bruising, Other Neurological: No: Weakness, Numbness, Incoordination, Change in speech, Confusion, Seizures, Other Allergies: Coded Allergies: NO KNOWN ALLERGIES (Unverified , 10/20/24) Medications Current Medications Medications Dose Ordered Sig/Phyllis Route Start Time Stop Time Status Last Admin Dose Admin Aspirin 81 mg DAILY PO 11/02/24 10:00 Atorvastatin Calcium 40 mg HS PO 11/02/24 22:00 Furosemide 40 mg DAILY IV 11/02/24 10:00 Diagnostic Test (Pha) 1 strip ACHS 11/02/24 07:00 Insulin Human Regular HS SC 11/02/24 22:00 Insulin Human Regular AC SC 11/02/24 07:00 Dextrose 50 ml UD PRN IV 11/02/24 01:45 Sodium Chloride 10 ml Q8HR IV 11/02/24 06:00 Acetaminophen/ Hydrocodone Bitart 1 tab Q4HP PRN PO 11/02/24 01:45 Ondansetron HCl 4 mg Q4HP PRN IV 11/02/24 01:45 Docusate Sodium 100 mg BIDPRN PRN PO 11/02/24 01:45 Acetaminophen 650 mg Q6HP PRN PO 11/02/24 01:45 Carvedilol 12.5 mg Q12HR PO 11/02/24 10:00 Nitroglycerin 0.4 mg Q5MINP PRN SL 11/02/24 03:45 Morphine Sulfate 2 mg Q30M PRN IV 11/02/24 03:45 Exam Vital Signs Vital Signs Date Time Temp Pulse Resp B/P (MAP) Pulse Ox O2 Delivery O2 Flow Rate FiO2 11/02/24 02:15 130/83 11/02/24 02:00 98.0 67 10 97 98.0 11/01/24 23:30 Room Air* 0 21 General Appearance: Alert, Oriented X3, Cooperative, No acute distress HEENT: Atraumatic, PERRLA, EOMI, Mucous membr. moist/pink Respiratory: Normal air movement Cardiovascular: Regular rate, Normal S1, Normal S2, No murmurs Abdominal: Normal bowel sounds, Soft, No tenderness, No hepatospenomegaly, No masses Extremities: No clubbing, No cyanosis, No edema, Normal pulses, No tenderness/swelling Skin: No rashes, No significant lesion Neuro: Normal speech, Normal tone, Sensation intact, Cranial nerves 3-12 NL, Reflexes 2+, Other (Generalized weakness) Psych/Mental Status: Mental status NL, Mood NL Labs/Xrays Labs Test 11/02/24 01:53 11/01/24 23:00 Range/Units Troponin I High Sensitivity 451 *H </=54 ng/L White Blood Count 8.0 4.4-10.8 10^3/uL Red Blood Count 4.02 L 4.5-5.90 10^6/uL Hemoglobin 14.5 13.5-17.5 g/dL Hematocrit 40.3 L 41.0-53.0 % Mean Corpuscular Volume 100.1 H 80.0-100.0 fL Mean Corpuscular Hemoglobin 35.9 H 28.0-32.0 pg Mean Corpuscular Hemoglobin Concent 35.9 32.0-36.0 g/dL Red Cell Distribution Width 14.1 11.8-14.3 % Platelet Count 342 140-450 10^3/uL Mean Platelet Volume 7.3 6.9-10.8 fL Neutrophils (%) (Auto) 72.4 37.0-80.0 % Lymphocytes (%) (Auto) 17.7 10.0-50.0 % Monocytes (%) (Auto) 8.4 0.0-12.0 % Eosinophils (%) (Auto) 1.2 0.0-7.0 % Basophils (%) (Auto) 0.3 0.0-2.0 % Neutrophils # (Auto) 5.8 1.6-8.6 10 ^3/uL Lymphocytes # (Auto) 1.4 0.4-5.4 10 ^3/uL Monocytes # (Auto) 0.7 0-1.3 10 ^3/uL Eosinophils # (Auto) 0.1 0-0.8 10 ^3/uL Basophils # (Auto) 0 0-0.2 10 ^3/uL Nucleated Red Blood Cells 0.1 % Sodium Level 133 L 136-145 mmol/L Potassium Level 4.5 3.5-5.1 mmol/L Chloride Level 99 98-107 mmol/L Carbon Dioxide Level 25 20-31 mmol/L Anion Gap 9 5-15 Blood Urea Nitrogen 10 9-23 mg/dL Creatinine 1.10 0.700-1.30 mg/dL Glomerular Filtration Rate Calc 71 >90 mL/min BUN/Creatinine Ratio 9.1 L 10.0-20.0 Serum Glucose 177 H 74-106 mg/dL Calcium Level 9.1 8.7-10.4 mg/dL B-Type Natriuretic Peptide 440.56 0-100 pg/mL PATIENT: NADIRA JIMÉNEZ ACCT: [id number] UNIT: [id number] : 1950 LOC: ER ROOM / BED: / AGE / SEX: 74 / M ADM STATUS: REG ER SERVICE 52 ORDERING PHYSICIAN: TIMBO CONTRERAS MD PROCEDURE(s): CXR1 - CHEST XRAY 1 VIEW REASON: cp ORDER NUMBER(s): [id number], ACCESSION NUMBER(s): [id number] CHEST RADIOGRAPH Indication: cp Technique: 1 view Comparison: XY CHEST PORTABLE on DOS: 10/22/24, XY CHEST PORTABLE on DOS: 10/21/24, XY CHEST XRAY 1 VIEW on DOS: 10/20/24, XY CHEST XRAY 1 VIEW on DOS: 10/20/24 FINDINGS: Lines and Tubes: External leads. Lungs/Pleura: No focal consolidation, pleural effusion or pneumothorax. Cardio-mediastinum: Unremarkable. Other: No acute osseous abnormality. IMPRESSION: 1. No acute cardiopulmonary abnormality. SEPSIS Sepsis Screen Date sepsis recognized/suspect: Nov 02, 2024 Time Sepsis recognized/suspect: 023 Recent Procedure: No On Antibiotic Therapy: No Respiratory Rate >20: No Heart Rate >90: No Temp<36 C (96.8 F) or >38.3 C: No SBP <90 or MAP <65 mmHG: No New Acute Mental Status Change: No Is the patient on CPAP, BIPAP,: No Physician Orders Chest Xray 1 View (11/01/24 22:53) Vital Signs Q1HR (11/01/24 22:53) Saline Lock (11/01/24 22:53) End Touching Machine Operator (11/01/24 ) Complete Blood Count (11/02/24 04:00) Comprehensive Metabolic Panel (11/02/24 04:00) Aspirin Tablet (11/02/24 10:00) Atorvastatin (Lipitor) (11/02/24 22:00) Consistent Carb(Ccho)Diabetes (11/02/24 Breakfast) Furosemide Injection (Lasix Injection) (11/02/24 10:00) Glucose Blood (Accu-Chek Comfort Curve T (11/02/24 07:00) Insulin R (Human) (Insulin R) (11/02/24 22:00) Insulin R (Human) (Insulin R) (11/02/24 07:00) Dextrose 50% Syringe (11/02/24 01:45) Allergies (11/02/24:32) Code Status (11/02/24:32) Sodium Chloride Lock (Saline Lock Ns) (11/02/24 06:00) Oxygen Per Hour (11/02/24:32) Hydrocodone-Acet 5/325mg Tab ([place] (11/02/24 01:45) Ondansetron Hcl (Zofran) (11/02/24 01:45) Docusate Sodium Capsule (Colace Capsule) (11/02/24 01:45) Fall Risk Precautions In Place QSHIFT (11/02/24 01:32) Complete Blood Count (11/03/24 04:00) Comprehensive Metabolic Panel (11/03/24 04:00) Condition: Serious (11/02/24:32) Acetaminophen Tablet (Tylenol Tablet) (11/02/24 01:45) Maintain Bed Rest (11/02/24:32) Sequential Compression Device (11/02/24 ) Carvedilol Tablet (Coreg Tablet) (11/02/24 10:00) * Cardiology Consult (11/02/24:32) Admit (11/02/24 03:38) Echo 2d Mode Cardiac Dop (11/02/24 03:38) Nitroglycerin Sublingual (Ntrostat Subli (11/02/24 03:45) Morphine Sulfate Injection (11/02/24 03:45) Stat Ekg For Chest Pain (11/02/24 03:38) Notify Of Changes From Base (11/02/24 03:38) Optometric Assistant For 24 Hours (11/02/24 03:38) Emergency Dysrhythmia Protocol (11/02/24 03:38) Rhythm Strips Once Every Shift (11/02/24 03:38) Oxygen By Nasal Cannula (11/02/24 03:38) Vital Signs Date Time Temp Pulse Resp B/P (MAP) Pulse Ox O2 Delivery O2 Flow Rate FiO2 11/02/24 02:15 130/83 11/02/24 02:00 98.0 67 10 137/101 (113) 97 98.0 11/02/24 01:56 71 11/02/24 01:26 73 13 122/78 11/01/24 23:54 74 11/01/24 23:51 62 12 135/76 11/01/24 23:38 61 11/01/24 23:30 67 12 135/76 (95) 98 11/01/24 23:30 67 12 98 Room Air* 0 21 11/01/24 23:11 98.3 76 16 142/83 100 98.3 11/01/24 22:51 61 Laboratory Tests Test 11/01/24 23:00 White Blood Count 8.0 10^3/uL (4.4-10.8) Medications Medications Dose Ordered Sig/Phyllis Route Start Time Stop Time Status Last Admin Dose Admin Aspirin 324 mg ONCE ONCE PO 11/01/24 23:00 11/01/24 23:01 DC 11/01/24 23:51 324 MG Furosemide 40 mg ONCE ONCE IV 11/02/24 01:45 11/02/24 01:49 DC 11/02/24 02:15 40 MG Morphine Sulfate 2 mg ONCE ONCE IV 11/01/24 23:00 11/01/24 23:01 DC 11/01/24 23:51 2 MG Assessment/Plan Assessment/Plan Generalized weakness Hyponatremia Coronary artery disease Status post angioplasty Acute exacerbation of congestive heart failure Plan 1. Admit to telemetry unit 2. Breathing treatment 3. Pain control management 4. Management of fluids and electrolytes 5. Consultation for Cardiology 6. Diagnostic tests chest x-ray 7. DVT prophylaxis-on aspirin 8. Repeat labs CBC, CMP in a.m. 9. Continue with current medical management 10. Treatment plan discussed with patient and RN. Patient verbalized understanding. Plan discussed with: Patient, Other (RN) My Orders Orders - LUANA CANTU DNP Procedure Category Date Status Time Complete Blood Count LAB 11/02/24 Logged 04:00 Comprehensive LAB 11/02/24 Logged Metabolic Panel 04:00 Aspirin Tablet PHA 11/02/24 In Process 10:00 Atorvastatin (Lipitor) PHA 11/02/24 In Process 22:00 Consistent DIET 11/02/24 Transmitted Carb(Ccho)Diabetes Breakfast Furosemide Injection PHA 11/02/24 In Process (Lasix Injection) 10:00 Glucose Blood PHA 11/02/24 In Process (Accu-Chek Comfort 07:00 Insulin R (Human) PHA 11/02/24 In Process (Insulin R) 22:00 Insulin R (Human) PHA 11/02/24 In Process (Insulin R) 07:00 Dextrose 50% Syringe PHA 11/02/24 In Process 01:45 Allergies EDUARDA 11/02/24 In Process 01:32 Code Status CODE 11/02/24 Transmitted 01:32 Sodium Chloride Lock PHA 11/02/24 In Process (Saline Lock Ns) 06:00 Oxygen Per Hour RT 11/02/24 Transmitted 01:32 Hydrocodone-Acet PHA 11/02/24 In Process 5/325mg Tab ([place] 01:45 Ondansetron Hcl PHA 11/02/24 In Process (Zofran) 01:45 Docusate Sodium PHA 11/02/24 In Process Capsule (Colace 01:45 Fall Risk Precautions EDUARDA 11/02/[address] 01:32 Complete Blood Count LAB 11/03/24 Verified 04:00 Comprehensive LAB 11/03/24 Verified Metabolic Panel 04:00 Condition: Serious EDUARDA 11/02/24 In Process 01:32 Acetaminophen Tablet PHA 11/02/24 In Process (Tylenol Tablet) 01:45 Maintain Bed Rest EDUARDA 11/02/24 In Process 01:32 Sequential EDUARDA 11/02/24 In Process Compression Device Carvedilol Tablet PHA 11/02/24 In Process (Coreg Tablet) 10:00 * Cardiology Consult CONS 11/02/24 Transmitted 01:32 Admit ADMIT 11/02/24 Transmitted 03:38 Echo 2d Mode Cardiac US 11/02/24 Logged DOP 03:38 Nitroglycerin PHA 11/02/24 In Process Sublingual (Ntrostat 03:45 Morphine Sulfate PHA 11/02/24 In Process Injection 03:45 Stat Ekg For Chest EDUARDA 11/02/24 In Process Pain 03:38 Notify Of Changes EDUARDA 11/02/24 In Process From Base 03:38 Optometric Assistant For EDUARDA 11/02/24 In Process 24 Hours 03:38 Emergency Dysrhythmia [facility] 9/19/25 In Process Protocol 03:38 Rhythm Strips Once EDUARDA 11/02/24 In Process Every Shift 03:38 Oxygen By Nasal RT 11/02/24 Transmitted Cannula 03:38 Problem List: (1) Generalized weakness (2) Hyponatremia (3) Coronary artery disease (4) Status post angioplasty (5) Acute exacerbation of congestive heart failure Date of Service: Nov 02, 2024 Billing Provider: LUANA CANTU DNP Common Visit Codes: [id number] INP/OBS CARE (HIGH) LUANA CANTU DNP Nov 02, 2024 04:09
[2024-11-02 05:45] LABS: Hemoglobin 14.5 g/dL (13.5-17.5); Nucleated Red Blood Cells % 0.0 %
[2024-11-02 05:49] LABS: Hematocrit 39.9 % (41.0-53.0); Mean Corpuscular Hemoglobin 36.3 pg (28.0-32.0); Mean Corpuscular Volume 99.8 fL (80.0-100.0)
[2024-11-02 06:05] LABS: Alanine Aminotransferase 25 U/L (7-40); Albumin 3.9 g/dL (3.2-4.8); Alkaline Phosphatase 68 U/L (46-116); Anion Gap 10 (5-15); Bilirubin, Total 1.1 mg/dL (0.2-1.0); Calcium 8.7 mg/dL (8.7-10.4); Carbon Dioxide 26 mmol/L (20-31); Potassium 3.8 mmol/L (3.5-5.1); Total Protein 6.3 g/dL (5.7-8.2)
[2024-11-02 06:08] LABS: Chloride 96 mmol/L (98-107); Glucose 142 mg/dL (74-106); Sodium 132 mmol/L (136-145)
[2024-11-02 06:18] LABS: BUN/Creatinine Ratio 11.7 (10.0-20.0); Blood Urea Nitrogen 12 mg/dL (9-23)
[2024-11-02] MEDS: ACCU-CHEK COMFORT CURVE STRIP VI SCH (06:27)
[2024-11-02] MEDS: SODIUM CHLOR 0.9% PF (SALINE LOCK) 10ML VIAL/SYR IV SCH (06:27)
[2024-11-02] MEDS: InsuLIN REG 1unit/0.01ml Soln (100units/ml) SC SCH ×2 (06:39→22:02)
[2024-11-02] MEDS: FUROSEMIDE 40 MG/4 ML VIAL IV SCH (09:30)
[2024-11-02] MEDS: TICAGRELOR 90 MG TAB PO SCH (09:31)
[2024-11-02] MEDS ORDERED: METF-1145 PO (09:50)
--- NOTE | 2024-11-02 10:21 | DVHINCON2 ---
Date Seen: Nov 02, 2024 Referring Physician NORMA Jones Reason for Consultation Elevated troponin History of Present Illness This is a 74-year-old male patient who presents to emergency room with chief complaint of generalized weakness for one day prior to emergency room arrival. Cardiology has been consulted at this time for elevated troponin. He denies any cardiac symptoms such as chest pain, palpitations, shortness of breath, or dizziness. Initial twelve electrocardiogram reveals normal sinus rhythm bigeminy PACs, and Q-waves seen anterior leads (EKG machine reads acute anterior infarct---ER MD sent to on-call STEMI MD, it was deemed not a STEMI). Initial troponin level of 447ng/L with down trend thereafter. Significant past medical history includes myocardial infarction, coronary artery disease s/p PTCA X 2 CRUZITO (on Brilinta and aspirin), congestive heart failure, hypertension, and type 2 diabetes mellitus. The patient was recently seen at this facility on 10/20/2024 with a STEMI. He was emergently taken to the cath lab nurse for a coronary angiogram with left heart catheterization and underwent PCI with a CRUZITO to proximal to mid LAD with intra-aortic balloon pump placement. Subsequently, the balloon pump was removed and the patient was taken back to cath lab nurse for a staged procedure with PCI with stenting of the right coronary artery. He has not followed up with a hyperbaric nurse in the outpatient setting since discharge. He reports compliance with dual antiplatelet therapy, lipid-lowering agent, and guideline directed medical therapy for CHF. He does admit to dietary noncompliance stating that he has been eating salty foods recently including spaghetti before coming to the emergency room. Past Medical History Past medical history reviewed. No other significant than mentioned above. Past Surgical History PTCA Cholecystectomy Family History: Patient reports no known family medical history. Family History Family history reviewed. Social History Denies the use of tobacco, alcohol or illicit drugs. Allergies: Coded Allergies: NO KNOWN ALLERGIES (Unverified , 10/20/24) Home Meds Active Scripts Lancets (Freestyle Lancets) Lancets Mis, AC XX TID, #200 Check blood sugar 3 times a day Prov:PANCHO DENNEY RESIDENT 10/25/24 Blood Glucose Monitoring Suppl (D-Care Glucometer Kit/Glu W/Device) 1 Kit Kit, KIT XX TID, #1 Check blood sugar 3 times a day Prov:FARPANCHO RICHARDSON 10/25/24 Empagliflozin (Jardiance) 10 Mg Tab, 10 MG PO DAILY for 30 Days, #30 TAB 1 Refill Prov:PANCHO DENNEY 10/25/24 Metoprolol Succinate (Toprol Xl) 25 Mg Tab, 1 TAB PO DAILY for 30 Days, #30 TAB 1 Refill Prov:PANCHO DENNEY 10/25/24 Lisinopril (Lisinopril) 10 Mg Tab, 5 MG PO DAILY for 30 Days, #15 TAB 1 Refill Prov:PANCHO DENNEY 10/25/24 Atorvastatin Calcium (ATORVASTATIN CALCIUM) 80 Mg Tab, 1 TAB PO DAILY for 30 Days, #30 TAB 3 Refills Prov:JAGJIT DENNEYHIRA 10/25/24 Ticagrelor Base (BRILINTA) 90 Mg Tab, 90 MG PO BID for 30 Days, #60 TAB 2 Refills Prov:PANCHO DENNEY 10/25/24 Aspirin (Aspirin Low Dose) 81 Mg Chw, 1 TAB PO DAILY for 30 Days, #30 TAB 3 Refills Prov:PANCHO DENNEY 10/25/24 Reported Medications Metformin Hydrochloride (Metformin Hcl Er) 500 Mg Tab, 2 TAB PO BID 11/02/24 Home Meds Home medications reviewed. Current Medications Current Medications Medications (Trade) Dose Ordered Sig/Phyllis Route PRN Reason Start Time Stop Time Status Last Admin Aspirin 81 mg DAILY PO 11/02/24 10:00 11/02/24 09:30 Atorvastatin Calcium (Lipitor) 40 mg HS PO 11/02/24 22:00 Furosemide (Lasix Injection) 40 mg DAILY IV 11/02/24 10:00 11/02/24 09:30 Diagnostic Test (Pha) (Accu-Chek Comfort Curve T) 1 strip ACHS 11/02/24 07:00 11/02/24 06:27 Insulin Human Regular (InsuLIN R) HS SC 11/02/24 22:00 Insulin Human Regular (InsuLIN R) AC SC 11/02/24 07:00 11/02/24 06:39 Dextrose 50 ml UD PRN IV Blood Sugar LESS THAN 60 11/02/24 01:45 Sodium Chloride (Saline Lock Ns) 10 ml Q8HR IV 11/02/24 06:00 11/02/24 06:27 Acetaminophen/ Hydrocodone Bitart ([place] 5/325MG Tab) 1 tab Q4HP PRN PO MODERATE PAIN (4-6 PAIN SCALE) 11/02/24 01:45 Ondansetron HCl (Zofran) 4 mg Q4HP PRN IV NAUSEA / VOMITING 11/02/24 01:45 Docusate Sodium (Colace Capsule) 100 mg BIDPRN PRN PO FOR CONSTIPATION 11/02/24 01:45 Acetaminophen (Tylenol Tablet) 650 mg Q6HP PRN PO PAIN SCALE 1-3 OR TEMP>100.4 11/02/24 01:45 Carvedilol (Coreg Tablet) 12.5 mg Q12HR PO 11/02/24 10:00 Nitroglycerin (Ntrostat Sublingual) 0.4 mg Q5MINP PRN SL FOR CHEST PAIN 11/02/24 03:45 Morphine Sulfate 2 mg Q30M PRN IV FOR CHEST PAIN 11/02/24 03:45 Ticagrelor (Brilinta) 90 mg BID PO 11/02/24 10:00 11/02/24 09:31 Review of Systems Constitutional: Generalized weakness Ears, Nose, & Throat: No symptom reported Eyes: No symptom reported Neurological: No symptoms reported Pulmonary/Respiratory: No symptoms reported Cardiovascular: No symptom reported Gastrointestinal: No symptom reported Genitourinary: No symptom reported Musculoskeletal: No symptom reported Skin: No symptom reported Psychiatric: No symptom reported Endocrine: No symptom reported Hematologic/Lymphatic: No symptom reported Vital Signs Vital Signs Date Time Temp Pulse Resp B/P (MAP) Pulse Ox O2 Delivery O2 Flow Rate FiO2 11/02/24 09:41 96.6 67 16 102/63 (76) 91 96.6 11/01/24 23:30 Room Air* 0 21 Physical Exam General Appearance: Cooperative. Well-developed. Well-nourished. No acute distress. Pulmonary/Respiratory: Clear, bilateral breaths sounds. Cardiovascular/Chest: Regular rate and rhythm. Peripheral Pulses: 2+ Radial (R). 2+ Radial (L). 2+ Pedal (R). 2+ Pedal (L) Abdominal Exam: Normal bowel sounds. Ankle Exam: Negative ankle edema Lower extremities: Negative lower extremity edema Neuro/Mental Status: A/OX4, coherent. Thoughts/Psych: Normal thought pattern. Appropriate mood and affect. Good judgment and insight. Appearance: No acute distress. Skin Exam: Normal inspection. Normal color. Warm and dry. Labs/Diagnostic Data Labs Test 11/02/24 09:09 11/02/24 05:23 11/02/24 01:00 11/01/24 23:00 Range/Units Troponin I High Sensitivity 408 *H </=54 ng/L White Blood Count 7.5 4.4-10.8 10^3/uL Red Blood Count 3.99 L 4.5-5.90 10^6/uL Hemoglobin 14.5 13.5-17.5 g/dL Hematocrit 39.9 L 41.0-53.0 % Mean Corpuscular Volume 99.8 80.0-100.0 fL Mean Corpuscular Hemoglobin 36.3 H 28.0-32.0 pg Mean Corpuscular Hemoglobin Concent 36.4 H 32.0-36.0 g/dL Red Cell Distribution Width 14.2 11.8-14.3 % Platelet Count 328 140-450 10^3/uL Mean Platelet Volume 7.2 6.9-10.8 fL Neutrophils (%) (Auto) 75.6 37.0-80.0 % Lymphocytes (%) (Auto) 14.3 10.0-50.0 % Monocytes (%) (Auto) 8.8 0.0-12.0 % Eosinophils (%) (Auto) 1.1 0.0-7.0 % Basophils (%) (Auto) 0.2 0.0-2.0 % Neutrophils # (Auto) 5.7 1.6-8.6 10 ^3/uL Lymphocytes # (Auto) 1.1 0.4-5.4 10 ^3/uL Monocytes # (Auto) 0.7 0-1.3 10 ^3/uL Eosinophils # (Auto) 0.1 0-0.8 10 ^3/uL Basophils # (Auto) 0 0-0.2 10 ^3/uL Nucleated Red Blood Cells 0.0 % Sodium Level 132 L 136-145 mmol/L Potassium Level 3.8 3.5-5.1 mmol/L Chloride Level 96 L 98-107 mmol/L Carbon Dioxide Level 26 20-31 mmol/L Anion Gap 10 5-15 Blood Urea Nitrogen 12 9-23 mg/dL Creatinine 1.03 0.700-1.30 mg/dL Glomerular Filtration Rate Calc 77 >90 mL/min BUN/Creatinine Ratio 11.7 10.0-20.0 Serum Glucose 142 H 74-106 mg/dL Calcium Level 8.7 8.7-10.4 mg/dL Total Bilirubin 1.1 H 0.2-1.0 mg/dL Aspartate Amino Transferase (AST) 33 13-40 U/L Alanine Aminotransferase (ALT) 25 7-40 U/L Alkaline Phosphatase 68 46-116 U/L Total Protein 6.3 5.7-8.2 g/dL Albumin 3.9 3.2-4.8 g/dL Urine Color Light-yellow Yellow Urine Clarity Clear Clear Urine pH 5.0 5.0-9.0 Urine Specific [place] 1.029 1.001-1.035 Urine Protein Negative Negative Urine Ketones Negative Negative Urine Blood Negative Negative /uL Urine Nitrite Negative Negative Urine Bilirubin Negative Negative Urine Urobilinogen Normal Negative mg/dL Urine Leukocyte Esterase Negative Negative /uL Urine RBC None seen 0 - 3 /hpf Urine Microscopic WBC 1 0-3 /HPF Urine Squamous Epithelial Cells Few <5 /hpf Urine Bacteria None seen None Seen /hpf Urine Glucose 4+ H Normal mg/dL B-Type Natriuretic Peptide 440.56 0-100 pg/mL Assessment NSTEMI Coronary artery disease status post PTCA X 2 CRUZITO (on Brilinta and aspirin) Recent ST elevation myocardial infarction Acute on chronic HFrEF, NYHA class II Hypertension Type 2 diabetes mellitus Dietary noncompliance Plan/Recommendation We will continue with the following plan/recommendations (Dr. Haddad): * Repeat transthoracic echocardiogram * Previous transthoracic echocardiogram from 10/20/2024 reveals EF of 35% with hypokinetic anterior wall * Initiate guideline directed medical therapy for CHF as tolerated * Strict intake and output, daily weights, maintain fluid restriction, cardiac low-sodium diet * Continue dual antiplatelet therapy with Brilinta and aspirin * Lipid-lowering agent * Close Cardiac surveillance * Risk factor modifications, counseled * Lifestyle and dietary changes Case discussed with . Continue with medical management. Thank you for allowing us to care for this patient. Please call with any questions or co ncerns. Critical care time spent: 44 minutes This medical document was created using an electronic medical record system with voice recognition software and computerized dictation system. Although this document has been carefully reviewed, there might still be some phonetic and typographical errors. Occasional wrong-word or ``sound-alike substitutions may have occurred due to the inherent limitations of voice recognition software. These areas are purely typographical due to imperfections of the software programs and do not reflect any compromise in the patient's medical care. Please read the chart carefully and recognize, using context, where these substitutions have occurred. Plan discussed with: Patient NYHA Physical activity limitations: Class2(Slight)fatigue,sob (palpitatns, angina w activityv) Date of Service: Nov 02, 2024 Billing Provider: ABNER LÓPEZ Cardiology Common Codes: 71266-[id number] INP/OBS CARE (High) Cardiology Consultation Codes: [id number]-[id number] CONSULT <45MIN ABNER LÓPEZ Nov 02, 2024 10:21
[2024-11-02] MEDS: CARVEDILOL 12.5 MG TAB PO SCH (10:43)
[2024-11-02 14:08] LABS: Amphetamine Screen, Urine Neg (NEGATIVE); Benzodiazephine Screen, Urine Neg (NEGATIVE)
[2024-11-02 14:09] LABS: Barbiturate Scree,Urine Neg (NEGATIVE); Cannabinoid Screen, Urine Neg (NEGATIVE); Cocaine Screen, Urine Neg (NEGATIVE); Opiate Scree,Urine Neg (NEGATIVE); Phencyclidine Screen, Urine Neg (NEGATIVE)
[2024-11-02] MEDS: LORazepam 0.5 MG TAB PO PRN (16:57)
--- NOTE | 2024-11-02 21:45 | DVHSR ---
APPROVED REPORT EXAM: Two-dimensional and M-mode echocardiogram with Doppler and color Doppler. Blood Pressure: 105/73 mmHg INDICATION Heart Failure RISK FACTORS Height: 5'11", Weight: 185 DIMENSIONS LVDd5.2 (3.8-5.7cm)LA (2D)3.7 (1.9-4.0cm)Aortic Root4.1 (2.0-3.7cm) LVDs4.3 (2.5-4.0cm)LA (MM) (1.9-4.0cm)Aortic Cusp Exc1.9 (1.5-2.0cm) EF (%) 37.0 (55-70%)Rt. Atrium3.7 (1.9-4.0cm)Asc. Aorta4.7 cm IVSd1.2 (0.7-1.1cm)RV (D)3.0 (1.8-2.4cm) PWd0.9 (0.7-1.1cm) Mitral Valve MitralMitral Stenosis E wave0.50m/sMV Mean GR.mmHg A wave0.83m/sMV Peak GR.mmHg E/A ratio0.62D MVAcm2 DECEL [id number] 1/2 Timems Aortic Valve Aortic ValveAortic Stenosis V10.87m/Rubina Mean GR.2mmHg V20.86m/Rubina Peak GR.3mmHg LVOT Diameter2.3 (1.8-2.4cm)Doppler AVA4.20cm2 Pulmonic Valve V20.91m/s Tricuspid Valve TR Velocity2.51m/s [id number] Conclusion MILD LVH AND MILD LV DIASTOLIC DYSFUNCTION LV EF IS 37% AND IS REDUCED APICAL AND ANTERIOR WALL MODERATE DEGREE HYPOKINESIS NORMAL VALVES NO EFFUSION NORMAL RV FUNCTION AND SIZE RVSP IS 33 MM OF HG AND IS NORMAL
[2024-11-02] MEDS: ATORVASTATIN 20 MG TAB PO SCH (22:01)
--- NOTE | 2024-11-02 22:36 | DVHINCON2 ---
Date Seen: Nov 02, 2024 Referring Physician NORMA Jones Reason for Consultation Elevated troponin History of Present Illness This is a 74-year-old male with a past medical history includes myocardial infarction, coronary artery disease s/p PTCA X 2 CRUZITO (on Brilinta and aspirin), congestive heart failure, hypertension, and type 2 diabetes mellitus who presents to ED with complaint of generalized weakness for one day prior to ED arrival. Cardiology has been consulted at this time for elevated troponin. He denies any cardiac symptoms such as chest pain, palpitations, shortness of breath, or dizziness. Initial twelve electrocardiogram reveals normal sinus rhythm bigeminy PACs, and Q-waves seen anterior leads (EKG machine reads acute anterior infarct---ER MD sent to on-call STEMI MD, it was deemed not a STEMI). Initial troponin level of 447ng/L with down trend thereafter. The patient was recently seen at this facility on 10/20/2024 with a STEMI. Patient was emergently taken to the [facility] for a coronary angiogram with left heart catheterization and underwent PCI with a CRUZITO to proximal to mid LAD with intra- aortic balloon pump placement. Subsequently, the balloon pump was removed and the patient was taken back to [facility] delivery for a staged procedure with PCI with stenting of the right coronary artery. He has not followed up with a lpn or medical assistant in the outpatient setting since discharge. He reports compliance with dual antiplatelet therapy, lipid-lowering agent, and guideline directed medical therapy for CHF. He does admit to dietary noncompliance stating that he has been eating salty foods recently including spaghetti before coming to the emergency room. Chest x-ray showed NAD. Patient was admitted to the hospital. I am asked to consult on this patient. Past Medical History Past medical history reviewed. No other significant than mentioned above. Past Surgical History PTCA Cholecystectomy Family History: Patient reports no known family medical history. Allergies: Coded Allergies: NO KNOWN ALLERGIES (Unverified , 10/20/24) Home Meds Active Scripts Lancets (Freestyle Lancets) Lancets Mis, AC XX TID, #200 Check blood sugar 3 times a day Prov:PANCHO DENNEY RESIDENT 10/25/24 Blood Glucose Monitoring Suppl (D-Care Glucometer Kit/Glu W/Device) 1 Kit Kit, KIT XX TID, #1 Check blood sugar 3 times a day Prov:PANCHO DENNEY RESIDENT 10/25/24 Empagliflozin (Jardiance) 10 Mg Tab, 10 MG PO DAILY for 30 Days, #30 TAB 1 [facility]/25/24 Metoprolol Succinate (Toprol Xl) 25 Mg Tab, 1 TAB PO DAILY for 30 Days, #30 TAB 1 [facility]/24 Lisinopril (Lisinopril) 10 Mg Tab, 5 MG PO DAILY for 30 Days, #15 TAB 1 [facility] 10/25/24 Atorvastatin Calcium (ATORVASTATIN CALCIUM) 80 Mg Tab, 1 TAB PO DAILY for 30 Days, #30 TAB 3 [facility] 10/25/24 Ticagrelor Base (BRILINTA) 90 Mg Tab, 90 MG PO BID for 30 Days, #60 TAB 2 [facility] 10/25/24 Aspirin (Aspirin Low Dose) 81 Mg Chw, 1 TAB PO DAILY for 30 Days, #30 TAB 3 [facility] 10/25/24 Reported Medications Metformin Hydrochloride (Metformin Hcl Er) 500 Mg Tab, 2 TAB PO BID 11/02/24 Current Medications Current Medications Medications (Trade) Dose Ordered Sig/Phyllis Route PRN Reason Start Time Stop Time Status Last Admin Aspirin 81 mg DAILY PO 11/02/24 10:00 11/02/24 09:30 Atorvastatin Calcium (Lipitor) 40 mg HS PO 11/02/24 22:00 Furosemide (Lasix Injection) 40 mg DAILY IV 11/02/24 10:00 11/02/24 09:30 Diagnostic Test (Pha) (Accu-Chek Comfort Curve T) 1 strip ACHS 11/02/24 07:00 11/02/24 12:38 Insulin Human Regular (InsuLIN R) HS SC 11/02/24 22:00 Insulin Human Regular (InsuLIN R) AC SC 11/02/24 07:00 11/02/24 12:38 Dextrose 50 ml UD PRN IV Blood Sugar LESS THAN 60 11/02/24 01:45 Sodium Chloride (Saline Lock Ns) 10 ml Q8HR IV 11/02/24 06:00 11/02/24 06:27 Acetaminophen/ Hydrocodone Bitart ([place] 5/325MG Tab) 1 tab Q4HP PRN PO MODERATE PAIN (4-6 PAIN SCALE) 11/02/24 01:45 Ondansetron HCl (Zofran) 4 mg Q4HP PRN IV NAUSEA / VOMITING 11/02/24 01:45 Docusate Sodium (Colace Capsule) 100 mg BIDPRN PRN PO FOR CONSTIPATION 11/02/24 01:45 Acetaminophen (Tylenol Tablet) 650 mg Q6HP PRN PO PAIN SCALE 1-3 OR TEMP>100.4 11/02/24 01:45 Carvedilol (Coreg Tablet) 12.5 mg Q12HR PO 11/02/24 10:00 11/02/24 10:43 Nitroglycerin (Ntrostat Sublingual) 0.4 mg Q5MINP PRN SL FOR CHEST PAIN 11/02/24 03:45 Morphine Sulfate 2 mg Q30M PRN IV FOR CHEST PAIN 11/02/24 03:45 Ticagrelor (Brilinta) 90 mg BID PO 11/02/24 10:00 11/02/24 09:31 Lisinopril (Zestril Tablet) 5 mg DAILY PO 11/03/24 10:00 Empaglifozin (Jardiance) 10 mg DAILY PO 11/03/24 10:00 Spironolactone (Aldactone) 25 mg DAILY PO 11/03/24 10:00 Review of Systems Constitutional: Generalized weakness Ears, Nose, & Throat: No symptom reported Eyes: No symptom reported Neurological: No symptoms reported Pulmonary/Respiratory: No symptoms reported Cardiovascular: No symptom reported Gastrointestinal: No symptom reported Genitourinary: No symptom reported Musculoskeletal: No symptom reported Skin: No symptom reported Psychiatric: No symptom reported Endocrine: No symptom reported Hematologic/Lymphatic: No symptom reported Vital Signs Vital Signs Date Time Temp Pulse Resp B/P (MAP) Pulse Ox O2 Delivery O2 Flow Rate FiO2 11/02/24 13:00 98.0 118 18 118/79 (92) 97 98.0 11/02/24 10:00 Room Air* 0 21 Physical Exam GENERAL: Alert and oriented x 3. No acute distress. EYES: PERRL, EOMI. Anicteric. HENT: Moist mucous membranes. LUNGS: Clear to auscultation bilaterally. CARDIOVASCULAR: Regular rate and rhythm. ABDOMEN: Soft, nontender and nondistended. EXTREMITIES: No edema. NEUROLOGIC: No focal neurological deficits. SKIN: Warm, dry. Labs/Diagnostic Data Labs Test 11/02/24 09:09 11/02/24 05:23 11/02/24 01:00 11/01/24 23:00 Range/Units Troponin I High Sensitivity 408 *H </=54 ng/L White Blood Count 7.5 4.4-10.8 10^3/uL Red Blood Count 3.99 L 4.5-5.90 10^6/uL Hemoglobin 14.5 13.5-17.5 g/dL Hematocrit 39.9 L 41.0-53.0 % Mean Corpuscular Volume 99.8 80.0-100.0 fL Mean Corpuscular Hemoglobin 36.3 H 28.0-32.0 pg Mean Corpuscular Hemoglobin Concent 36.4 H 32.0-36.0 g/dL Red Cell Distribution Width 14.2 11.8-14.3 % Platelet Count 328 140-450 10^3/uL Mean Platelet Volume 7.2 6.9-10.8 fL Neutrophils (%) (Auto) 75.6 37.0-80.0 % Lymphocytes (%) (Auto) 14.3 10.0-50.0 % Monocytes (%) (Auto) 8.8 0.0-12.0 % Eosinophils (%) (Auto) 1.1 0.0-7.0 % Basophils (%) (Auto) 0.2 0.0-2.0 % Neutrophils # (Auto) 5.7 1.6-8.6 10 ^3/uL Lymphocytes # (Auto) 1.1 0.4-5.4 10 ^3/uL Monocytes # (Auto) 0.7 0-1.3 10 ^3/uL Eosinophils # (Auto) 0.1 0-0.8 10 ^3/uL Basophils # (Auto) 0 0-0.2 10 ^3/uL Nucleated Red Blood Cells 0.0 % Sodium Level 132 L 136-145 mmol/L Potassium Level 3.8 3.5-5.1 mmol/L Chloride Level 96 L 98-107 mmol/L Carbon Dioxide Level 26 20-31 mmol/L Anion Gap 10 5-15 Blood Urea Nitrogen 12 9-23 mg/dL Creatinine 1.03 0.700-1.30 mg/dL Glomerular Filtration Rate Calc 77 >90 mL/min BUN/Creatinine Ratio 11.7 10.0-20.0 Serum Glucose 142 H 74-106 mg/dL Calcium Level 8.7 8.7-10.4 mg/dL Total Bilirubin 1.1 H 0.2-1.0 mg/dL Aspartate Amino Transferase (AST) 33 13-40 U/L Alanine Aminotransferase (ALT) 25 7-40 U/L Alkaline Phosphatase 68 46-116 U/L Total Protein 6.3 5.7-8.2 g/dL Albumin 3.9 3.2-4.8 g/dL Urine Color Light-yellow Yellow Urine Clarity Clear Clear Urine pH 5.0 5.0-9.0 Urine Specific [place] 1.029 1.001-1.035 Urine Protein Negative Negative Urine Ketones Negative Negative Urine Blood Negative Negative /uL Urine Nitrite Negative Negative Urine Bilirubin Negative Negative Urine Urobilinogen Normal Negative mg/dL Urine Leukocyte Esterase Negative Negative /uL Urine RBC None seen 0 - 3 /hpf Urine Microscopic WBC 1 0-3 /HPF Urine Squamous Epithelial Cells Few <5 /hpf Urine Bacteria None seen None Seen /hpf Urine Glucose 4+ H Normal mg/dL B-Type Natriuretic Peptide 440.56 0-100 pg/mL Assessment NSTEMI. Coronary artery disease status post PTCA X 2 CRUZITO (on Brilinta and aspirin). Recent ST elevation myocardial infarction. Acute on chronic HFrEF, NYHA class II. Hypertension. Type 2 diabetes mellitus. Dietary noncompliance. Plan/Recommendation I agree with your ongoing assessment and care of plan. Patient has been seen by Aimee Taylor NP on my behalf, her and I discussed the plan with the patient. Repeat transthoracic echocardiogram. Previous transthoracic echocardiogram from 10/20/2024 reveals EF of 35% with hypokinetic anterior wall. Initiate guideline directed medical therapy for CHF as tolerated. Strict intake and output, daily weights, maintain fluid restriction, cardiac low-sodium diet. Continue dual antiplatelet therapy with Brilinta and aspirin. Lipid-lowering agent. Close Cardiac surveillance. Risk factor modifications, counseled. Lifestyle and dietary changes Additional plan as per the hospital course. Plan discussed with: Patient NYHA Physical activity limitations: Class2(Slight)fatigue,sob Date of Service: Nov 02, 2024 Billing Provider: DIDI SWANSON MD Cardiology Common Codes: 27682-[id number] INP/OBS CARE (High) Cardiology Consultation Codes: [id number] CONSULT <45MIN DIDI SWANSON MD Nov 02, 2024 13:19
[2024-11-03 01:00] VITALS: BP 110/79; PULSE 65; RESP 15; TEMP 98; O2SAT 98
[2024-11-03 05:00] VITALS: BP 120/80; PULSE 66; RESP 16; TEMP 98.1; O2SAT 98
[2024-11-03 08:00] VITALS: PULSE 66; PULSE 69; RESP 16; O2SAT 95
[2024-11-03 08:18] LABS: Alanine Aminotransferase 24 U/L (7-40); Alkaline Phosphatase 65 U/L (46-116); Anion Gap 14 (5-15); BUN/Creatinine Ratio 16.8 (10.0-20.0); Blood Urea Nitrogen 17 mg/dL (9-23); Calcium 9.1 mg/dL (8.7-10.4); Carbon Dioxide 25 mmol/L (20-31); Potassium 3.9 mmol/L (3.5-5.1); Total Protein 6.4 g/dL (5.7-8.2)
[2024-11-03 08:19] LABS: Albumin 3.9 g/dL (3.2-4.8); Chloride 93 mmol/L (98-107); Glucose 127 mg/dL (74-106); Sodium 132 mmol/L (136-145)
[2024-11-03 08:31] LABS: Bilirubin, Total 1.3 mg/dL (0.2-1.0)
[2024-11-03 08:56] LABS: Hematocrit 40.4 % (41.0-53.0); Hemoglobin 14.8 g/dL (13.5-17.5); Mean Corpuscular Hemoglobin 36.0 pg (28.0-32.0); Mean Corpuscular Volume 98.5 fL (80.0-100.0); Nucleated Red Blood Cells % 0.1 %
[2024-11-03] MEDS: LISINOPRIL 5 MG TAB PO SCH (10:37)
[2024-11-03] MEDS: SPIRONOLACTONE 25 MG TAB PO SCH (10:37)
[2024-11-03] MEDS: EMPAGLIFLOZIN 10 MG TAB PO SCH (10:37)
[2024-11-03] MEDS ORDERED: FURO1TAB31 PO (14:47)
--- NOTE | 2024-11-03 14:48 | DVHDS2 ---
Discharge Summary Date of Admission Nov 02, 2024 at 03:38 Labs/Diagnostic Data: Laboratory Results Test 11/03/24 12:05 11/03/24 06:23 11/03/24 06:03 11/02/24 09:09 POC Glucose 183 mg/dl (70-106) White Blood Count 6.4 10^3/uL (4.4-10.8) Red Blood Count 4.10 10^6/uL (4.5-5.90) Hemoglobin 14.8 g/dL (13.5-17.5) Hematocrit 40.4 % (41.0-53.0) Mean Corpuscular Volume 98.5 fL (80.0-100.0) Mean Corpuscular Hemoglobin 36.0 pg (28.0-32.0) Mean Corpuscular Hemoglobin Concent 36.5 g/dL (32.0-36.0) Red Cell Distribution Width 14.4 % (11.8-14.3) Platelet Count 308 10^3/uL (140-450) Mean Platelet Volume 7.7 fL (6.9-10.8) Neutrophils (%) (Auto) 75.4 % (37.0-80.0) Lymphocytes (%) (Auto) 15.5 % (10.0-50.0) Monocytes (%) (Auto) 7.3 % (0.0-12.0) Eosinophils (%) (Auto) 1.4 % (0.0-7.0) Basophils (%) (Auto) 0.4 % (0.0-2.0) Neutrophils # (Auto) 4.9 10 ^3/uL (1.6-8.6) Lymphocytes # (Auto) 1.0 10 ^3/uL (0.4-5.4) Monocytes # (Auto) 0.5 10 ^3/uL (0-1.3) Eosinophils # (Auto) 0.1 10 ^3/uL (0-0.8) Basophils # (Auto) 0 10 ^3/uL (0-0.2) Nucleated Red Blood Cells 0.1 % Sodium Level 132 mmol/L (136-145) Potassium Level 3.9 mmol/L (3.5-5.1) Chloride Level 93 mmol/L (98-107) Carbon Dioxide Level 25 mmol/L (20-31) Anion Gap 14 (5-15) Blood Urea Nitrogen 17 mg/dL (9-23) Creatinine 1.01 mg/dL (0.700-1.30) Glomerular Filtration Rate Calc 79 mL/min (>90) BUN/Creatinine Ratio 16.8 (10.0-20.0) Serum Glucose 127 mg/dL (74-106) Calcium Level 9.1 mg/dL (8.7-10.4) Total Bilirubin 1.3 mg/dL (0.2-1.0) Aspartate Amino Transferase (AST) 30 U/L (13-40) Alanine Aminotransferase (ALT) 24 U/L (7-40) Alkaline Phosphatase 65 U/L (46-116) Total Protein 6.4 g/dL (5.7-8.2) Albumin 3.9 g/dL (3.2-4.8) Troponin I High Sensitivity 408 ng/L (</=54) Test 11/02/24 01:00 11/01/24 23:00 Urine Color Light-yellow (Yellow) Urine Clarity Clear (Clear) Urine pH 5.0 (5.0-9.0) Urine Specific [place] 1.029 (1.001-1.035) Urine Protein Negative (Negative) Urine Ketones Negative (Negative) Urine Blood Negative /uL (Negative) Urine Nitrite Negative (Negative) Urine Bilirubin Negative (Negative) Urine Urobilinogen Normal mg/dL (Negative) Urine Leukocyte Esterase Negative /uL (Negative) Urine RBC None seen /hpf (0 - 3) Urine Microscopic WBC 1 /HPF (0-3) Urine Squamous Epithelial Cells Few /hpf (<5) Urine Bacteria None seen /hpf (None Seen) Urine Glucose 4+ mg/dL (Normal) Urine Opiates Screen Neg (NEGATIVE) Urine Fentanyl Screen Neg (NEGATIVE) Urine Barbiturates Screen Neg (NEGATIVE) Urine Phencyclidine Screen Neg (NEGATIVE) Urine Amphetamines Screen Neg (NEGATIVE) Urine Benzodiazepines Screen Neg (NEGATIVE) Urine Cocaine Screen Neg (NEGATIVE) Urine Cannabinoids Screen Neg (NEGATIVE) B-Type Natriuretic Peptide 440.56 pg/mL (0-100) Other Laboratory Tests 11/03/24 06:23 11/03/24 06:03 Discharge Instruct/Medications Scheduled Aspirin (Aspirin Low Dose), 1 TAB PO DAILY Atorvastatin Calcium (Atorvastatin Calcium), 1 TAB PO DAILY Empagliflozin (Jardiance), 10 MG PO DAILY Furosemide (Lasix), 40 MG PO DAILY Lisinopril (Lisinopril), 5 MG PO DAILY Metformin Hydrochloride (Metformin Hcl Er), 2 TAB PO BID, (Reported) Metoprolol Succinate (Toprol Xl), 1 TAB PO DAILY Ticagrelor Base (Brilinta), 90 MG PO BID Durable Medical Equipment Blood Glucose Monitoring Suppl (D-Care Glucometer Kit/Glu W/Device), KIT XX TID, (DME) Lancets (Freestyle Lancets), AC XX TID, (DME) Discharge Statement: "Patient was advised to return to the ER or call 911 if any headaches, dizziness, shortness of breath, chest pain, abdominal pain, bleeding, fevers, or worsening of medical condition. Patient was counseled about treatment plan, medications, possible side effects, patientverbalized understanding. All questions were answered to the best of my ability. This discharge took greater then 30 minutes in planning, reviewing documentation, counseling the patient, and discussing with other team members." ASSESSMENT ASSESSMENT Assessment KALIE MACDONALD MD Nov 03, 2024 14:48
[2024-11-03 20:00] VITALS: PULSE 65; RESP 18
--- NOTE | 2024-11-03 20:14 | DVHPN2 ---
Progress Note - Dictate Date Seen: Nov 03, 2024 Medical Necessity Reason Pt with a Central, PICC or Fol: No Subjective Patient was seen and evaluated in follow up. No overnight events. Echo shows an EF of 37%. Telemetry reviewed. vital signs Vital Sign Date Time Temp Pulse Resp B/P (MAP) Pulse Ox O2 Delivery O2 Flow Rate FiO2 11/03/24 11:38 76 118/72 11/03/24 08:00 16 95 Room Air* 0 21 11/03/24 05:00 98.1 98.1 Total Intake and Output 11/02/24 11/02/24 11/03/24 15:00 23:00 07:00 Intake Total 1840 ml 1680 ml Output Total 1200 ml Balance 1840 ml 480 ml medications Current Medications Medications Dose Ordered Sig/Phyllis Route Start Time Stop Time Status Last Admin Dose Admin Aspirin 81 mg DAILY PO 11/02/24 10:00 11/03/24 10:37 81 MG Atorvastatin Calcium 40 mg HS PO 11/02/24 22:00 11/02/24 22:01 40 MG Furosemide 40 mg DAILY IV 11/02/24 10:00 11/03/24 10:36 40 MG Diagnostic Test (Pha) 1 strip ACHS 11/02/24 07:00 11/03/24 16:57 1 STRIP Insulin Human Regular HS SC 11/02/24 22:00 11/02/24 22:02 2 UNITS Insulin Human Regular AC SC 11/02/24 07:00 11/03/24 16:56 3 UNITS Dextrose 50 ml UD PRN IV 11/02/24 01:45 Sodium Chloride 10 ml Q8HR IV 11/02/24 06:00 11/03/24 13:53 10 ML Acetaminophen/ Hydrocodone Bitart 1 tab Q4HP PRN PO 11/02/24 01:45 Ondansetron HCl 4 mg Q4HP PRN IV 11/02/24 01:45 Docusate Sodium 100 mg BIDPRN PRN PO 11/02/24 01:45 Acetaminophen 650 mg Q6HP PRN PO 11/02/24 01:45 Carvedilol 12.5 mg Q12HR PO 11/02/24 10:00 11/03/24 10:38 12.5 MG Nitroglycerin 0.4 mg Q5MINP PRN SL 11/02/24 03:45 Morphine Sulfate 2 mg Q30M PRN IV 11/02/24 03:45 Ticagrelor 90 mg BID PO 11/02/24 10:00 11/03/24 10:37 90 MG Lisinopril 5 mg DAILY PO 11/03/24 10:00 11/03/24 10:37 5 MG Empaglifozin 10 mg DAILY PO 11/03/24 10:00 11/03/24 10:37 10 MG Spironolactone 25 mg DAILY PO 11/03/24 10:00 11/03/24 10:37 25 MG Lorazepam 1 mg Q6HP PRN PO 11/02/24 17:00 11/03/24 12:05 1 MG objective GENERAL: Alert and oriented x 3. No acute distress. EYES: PERRL, EOMI. Anicteric. HENT: Moist mucous membranes. LUNGS: Clear to auscultation bilaterally. CARDIOVASCULAR: Regular rate and rhythm. ABDOMEN: Soft, nontender and nondistended. EXTREMITIES: No edema. NEUROLOGIC: No focal neurological deficits. SKIN: Warm, dry. laboratory and microbiology Laboratory Tests 11/03/24 06:23 11/03/24 06:03 Test 11/03/24 06:03 Range/Units Serum Glucose 127 H 74-106 mg/dL Problem List NSTEMI. Coronary artery disease status post PTCA X 2 CRUZITO (on Brilinta and aspirin). Recent ST elevation myocardial infarction. Acute on chronic HFrEF, NYHA class II. Hypertension. Type 2 diabetes mellitus. Dietary noncompliance. Assessment/Plan Continued all current supportive medical care. Morphine and [place] for pain management. Aspirin, Lipitor, Brilinta. Lisinopril, Coreg. Diuretics with Lasix. Nitro SL. Additional plan as per the hospital course. Plan discussed with: Patient DIDI SWANSON MD Nov 03, 2024 19:31
[2024-11-03 21:00] VITALS: BP 92/58; PULSE 60; RESP 17; TEMP 97.7; O2SAT 94
[2024-11-04 05:00] VITALS: BP 101/63; PULSE 60; RESP 18; TEMP 98.1; O2SAT 92
[2024-11-04 08:00] VITALS: PULSE 73; RESP 16
[2024-11-04 08:40] VITALS: BP 105/61; PULSE 62; RESP 16; TEMP 98; O2SAT 99
--- NOTE | 2024-11-04 08:56 | DVHPN2 ---
Subjective the patient seen and examined at bedside. No complains today.AOx 3 Reviewed: Care Plan, H&P, Labs, Medications, Previous Orders, Radiology Changes from previous H/P or p: No Changes Eyes: No Pain, No Vision change, No Conjunctivae inflammation, No Eyelid inflammation, No Other, No Redness ENT: No Ear pain, No Ear discharge, No Nose pain, No Nose discharge, No Nose congestion, No Mouth pain, No Mouth swelling, No Throat pain, No Throat swelling, No Other Cardiovascular: No Chest Pain, No Palpitations, No Orthopnea, No Paroxysmal Noc. Dyspnea, No Edema, No Lt Headedness, No Other Respiratory: No Cough, No Dry, No Shortness of breath, No SOB with excertion, No Wheezing, No Hemoptysis, No Pleuritic Pain, No Sputum, No Other Gastrointestinal: No Nausea, No Vomiting, No Abdominal Pain, No Diarrhea, No Constipation, No Melena, No Hematochezia, No Other Genitourinary: No Dysuria, No Frequency, No Incontinence, No Hematuria, No Retention, No Other Musculoskeletal: No other, No neck pain, No shoulder pain, No arm pain, No back pain, No hand pain, No leg pain, No foot pain Skin: No Rash, No Lesions, No Jaundice, No Bruising, No Other Objective Vitals Vital Signs Date Time Temp Pulse Resp B/P (MAP) Pulse Ox O2 Delivery O2 Flow Rate FiO2 11/04/24 08:40 98.0 62 16 105/61 (76) 99 98.0 11/03/24 20:00 Room Air* 0 21 Intake/Output Intake and Output 11/04/24 07:00 Intake Total 750 ml Balance 750 ml Intake Oral 750 ml # Voids 6 General Appearance: Alert, Oriented X3, Cooperative, No acute distress HEENT: Atraumatic, PERRLA, EOMI, Mucous membr. moist/pink Neck: Supple Lungs: Clear to auscultation, Normal air movement Cardiovascular: Regular rate, Normal S1, Normal S2, No murmurs, Gallops, Rubs Abdomen: Normal bowel sounds, Soft Neuro: Cranial nerves 3-12 NL Psych/Mental Status: Mental status NL Medications Current Medications Medications Dose Ordered Sig/Phyllis Route Start Time Stop Time Status Last Admin Dose Admin Aspirin 81 mg DAILY PO 11/02/24 10:00 11/03/24 10:37 81 MG Atorvastatin Calcium 40 mg HS PO 11/02/24 22:00 11/03/24 22:35 40 MG Furosemide 40 mg DAILY IV 11/02/24 10:00 11/03/24 10:36 40 MG Diagnostic Test (Pha) 1 strip ACHS 11/02/24 07:00 11/04/24 06:13 1 STRIP Insulin Human Regular HS SC 11/02/24 22:00 11/03/24 22:41 4 UNITS Insulin Human Regular AC SC 11/02/24 07:00 11/04/24 06:16 2 UNITS Dextrose 50 ml UD PRN IV 11/02/24 01:45 Sodium Chloride 10 ml Q8HR IV 11/02/24 06:00 11/04/24 06:13 10 ML Acetaminophen/ Hydrocodone Bitart 1 tab Q4HP PRN PO 11/02/24 01:45 Ondansetron HCl 4 mg Q4HP PRN IV 11/02/24 01:45 Docusate Sodium 100 mg BIDPRN PRN PO 11/02/24 01:45 Acetaminophen 650 mg Q6HP PRN PO 11/02/24 01:45 Carvedilol 12.5 mg Q12HR PO 11/02/24 10:00 11/03/24 22:35 12.5 MG Nitroglycerin 0.4 mg Q5MINP PRN SL 11/02/24 03:45 Morphine Sulfate 2 mg Q30M PRN IV 11/02/24 03:45 Ticagrelor 90 mg BID PO 11/02/24 10:00 11/03/24 22:36 90 MG Lisinopril 5 mg DAILY PO 11/03/24 10:00 11/03/24 10:37 5 MG Empaglifozin 10 mg DAILY PO 11/03/24 10:00 11/03/24 10:37 10 MG Spironolactone 25 mg DAILY PO 11/03/24 10:00 11/03/24 10:37 25 MG Lorazepam 1 mg Q6HP PRN PO 11/02/24 17:00 11/03/24 12:05 1 MG Laboratory Results Laboratory Tests 11/03/24 06:03 11/03/24 06:23 Urinalysis Test 11/02/24 01:00 Urine Color Light-yellow (Yellow) Urine Clarity Clear (Clear) Urine pH 5.0 (5.0-9.0) Urine Specific [place] 1.029 (1.001-1.035) Urine Protein Negative (Negative) Urine Ketones Negative (Negative) Urine Blood Negative /uL (Negative) Urine Nitrite Negative (Negative) Urine Bilirubin Negative (Negative) Urine Urobilinogen Normal mg/dL (Negative) Urine Leukocyte Esterase Negative /uL (Negative) Urine RBC None seen /hpf (0 - 3) Urine Microscopic WBC 1 /HPF (0-3) Urine Squamous Epithelial Cells Few /hpf (<5) Urine Bacteria None seen /hpf (None Seen) Urine Glucose 4+ mg/dL (Normal) H Labs and/or images reviewed: Labs reviewed by me Assessment/Plan Assessment/Plan Generalized weakness Hyponatremia Coronary artery disease Status post angioplasty Acute exacerbation of systolic congestive heart failure, EF 37% NSTEMI Continue current management. Continue Lasix Appreciate supervisor shuttle preparation input Echo review. Discharge planning. This medical document was created using an electronic medical record system with [employer] direct computerized dictation system. Although this document has been carefully reviewed, there may still be some phonetic and typographical errors. These areas are purely typographical due to imperfections of the software programs, and do not reflect any compromise in the patient's medical care. Plan discussed with: Patient My Orders Orders - KALIE MACDONALD MD Procedure Category Date Status Time Discharge DISCHARGE 11/04/24 Transmitted 08:32 Date of Service: Nov 03, 2024 Billing Provider: KALIE MACDONALD MD Common Visit Codes: [id number] INP/OBS CARE(HIGH) KALIE MACDONALD MD Nov 04, 2024 08:56
--- NOTE | 2024-11-04 08:57 | DVHDS2 ---
Discharge Summary Date of Admission Nov 02, 2024 at 03:38 Date of Discharge: Nov 04, 2024 Admitting Diagnosis Generalized weakness Hyponatremia Coronary artery disease Status post angioplasty Acute exacerbation of systolic congestive heart failure, EF 37% NSTEMI Labs/Diagnostic Data: Laboratory Results Test 11/03/24 22:17 11/03/24 06:23 11/03/24 06:03 11/02/24 09:09 POC Glucose 227 mg/dl (70-106) White Blood Count 6.4 10^3/uL (4.4-10.8) Red Blood Count 4.10 10^6/uL (4.5-5.90) Hemoglobin 14.8 g/dL (13.5-17.5) Hematocrit 40.4 % (41.0-53.0) Mean Corpuscular Volume 98.5 fL (80.0-100.0) Mean Corpuscular Hemoglobin 36.0 pg (28.0-32.0) Mean Corpuscular Hemoglobin Concent 36.5 g/dL (32.0-36.0) Red Cell Distribution Width 14.4 % (11.8-14.3) Platelet Count 308 10^3/uL (140-450) Mean Platelet Volume 7.7 fL (6.9-10.8) Neutrophils (%) (Auto) 75.4 % (37.0-80.0) Lymphocytes (%) (Auto) 15.5 % (10.0-50.0) Monocytes (%) (Auto) 7.3 % (0.0-12.0) Eosinophils (%) (Auto) 1.4 % (0.0-7.0) Basophils (%) (Auto) 0.4 % (0.0-2.0) Neutrophils # (Auto) 4.9 10 ^3/uL (1.6-8.6) Lymphocytes # (Auto) 1.0 10 ^3/uL (0.4-5.4) Monocytes # (Auto) 0.5 10 ^3/uL (0-1.3) Eosinophils # (Auto) 0.1 10 ^3/uL (0-0.8) Basophils # (Auto) 0 10 ^3/uL (0-0.2) Nucleated Red Blood Cells 0.1 % Sodium Level 132 mmol/L (136-145) Potassium Level 3.9 mmol/L (3.5-5.1) Chloride Level 93 mmol/L (98-107) Carbon Dioxide Level 25 mmol/L (20-31) Anion Gap 14 (5-15) Blood Urea Nitrogen 17 mg/dL (9-23) Creatinine 1.01 mg/dL (0.700-1.30) Glomerular Filtration Rate Calc 79 mL/min (>90) BUN/Creatinine Ratio 16.8 (10.0-20.0) Serum Glucose 127 mg/dL (74-106) Calcium Level 9.1 mg/dL (8.7-10.4) Total Bilirubin 1.3 mg/dL (0.2-1.0) Aspartate Amino Transferase (AST) 30 U/L (13-40) Alanine Aminotransferase (ALT) 24 U/L (7-40) Alkaline Phosphatase 65 U/L (46-116) Total Protein 6.4 g/dL (5.7-8.2) Albumin 3.9 g/dL (3.2-4.8) Troponin I High Sensitivity 408 ng/L (</=54) Test 11/02/24 01:00 11/01/24 23:00 Urine Color Light-yellow (Yellow) Urine Clarity Clear (Clear) Urine pH 5.0 (5.0-9.0) Urine Specific [place] 1.029 (1.001-1.035) Urine Protein Negative (Negative) Urine Ketones Negative (Negative) Urine Blood Negative /uL (Negative) Urine Nitrite Negative (Negative) Urine Bilirubin Negative (Negative) Urine Urobilinogen Normal mg/dL (Negative) Urine Leukocyte Esterase Negative /uL (Negative) Urine RBC None seen /hpf (0 - 3) Urine Microscopic WBC 1 /HPF (0-3) Urine Squamous Epithelial Cells Few /hpf (<5) Urine Bacteria None seen /hpf (None Seen) Urine Glucose 4+ mg/dL (Normal) Urine Opiates Screen Neg (NEGATIVE) Urine Fentanyl Screen Neg (NEGATIVE) Urine Barbiturates Screen Neg (NEGATIVE) Urine Phencyclidine Screen Neg (NEGATIVE) Urine Amphetamines Screen Neg (NEGATIVE) Urine Benzodiazepines Screen Neg (NEGATIVE) Urine Cocaine Screen Neg (NEGATIVE) Urine Cannabinoids Screen Neg (NEGATIVE) B-Type Natriuretic Peptide 440.56 pg/mL (0-100) Other Laboratory Tests 11/03/24 06:23 11/03/24 06:03 Brief Hx & Hospital Course: This is a 74 years old male with past medical history congestive heart failure, diabetes, coronary artery disease, hypertension, WI, and gallbladder come to [facility] with chief complaint of generalized weakness. The patient was recently discharged from the hospital in October 25, 2024. He was diagnosis with acute chest pain likely secondary to ST-elevation WI. massive anterior WI. Status post PTCA x2 in the LAD and posterior communicating branch of the right coronary artery. Patient does have cardiogenic shock at that time. He had a intra-aortic balloon pump removal. This time he complain of weakness and severe chest pain. The patient was admitted. Troponin level was elevated at 400s level. [employer] was consulted. Because the patient just recently had procedure done in October 25 2024, Dr. Kayden Haddad did not recommend any further intervention in the hospital. Recommend continuing medical management with spironolactone, lisinopril, Jardiance, Lasix, Brilinta and aspirin. The patient also was started on beta keren, lisinopril, Recommend to follow up with primary care physician 1-2 weeks. Activity as tolerated. Diet low-salt low-cholesterol diet. Physical exam: HEENT: Normocephalic atraumatic pupils equal react to light and accommodation. Extraocular muscles intact, conjunctiva pink, oropharynx moist, no thrush, no exudate. Lymphatic: No lymphadenopathy Cardiovascular exam: S1, S2 was heard. No murmurs, rubs, gallops Lung: Clear on auscultation bilaterally, no wheeze, rale, rhonchi. GI: Abdominal soft, nondistended, nontenderness, positive bowel sounds. Extremity: No crepitus, cyanosis, edema. Pedal pulses present bilateral. Full range of motion. Skin: Normal turgor, no rash. Psych: Alert, oriented x3. Neurology: No focal deficits, cranial nerve II to XII grossly intact. This medical document was created using an electronic medical record system with [employer] direct computerized dictation system. Although this document has been carefully reviewed, there may still be some phonetic and typographical errors. These areas are purely typographical due to imperfections of the software programs, and do not reflect any compromise in the patient's medical care. Condition at Discharge: Stable Final Diagnosis/Problems List Generalized weakness Hyponatremia Coronary artery disease Status post angioplasty Acute exacerbation of systolic congestive heart failure, EF 37% NSTEMI Discharge Disposition: Home Discharge Instruct/Medications Diet: Cardiac 2g Na,low cholest Activity: No Restrictions, As Tolerated Follow Up/Referral: PCP 1-2 weeks Medications: See med list Scheduled Aspirin (Aspirin Low Dose), 1 TAB PO DAILY Atorvastatin Calcium (Atorvastatin Calcium), 1 TAB PO DAILY Empagliflozin (Jardiance), 10 MG PO DAILY Furosemide (Lasix), 40 MG PO DAILY Lisinopril (Lisinopril), 5 MG PO DAILY Metformin Hydrochloride (Metformin Hcl Er), 2 TAB PO BID, (Reported) Metoprolol Succinate (Toprol Xl), 1 TAB PO DAILY Ticagrelor Base (Brilinta), 90 MG PO BID Durable Medical Equipment Blood Glucose Monitoring Suppl (D-Care Glucometer Kit/Glu W/Device), KIT XX TID, (DME) Lancets (Freestyle Lancets), AC XX TID, (DME) Discharge Statement: "Patient was advised to return to the ER or call 911 if any headaches, dizziness, shortness of breath, chest pain, abdominal pain, bleeding, fevers, or worsening of medical condition. Patient was counseled about treatment plan, medications, possible side effects, patientverbalized understanding. All questions were answered to the best of my ability. This discharge took greater then 30 minutes in planning, reviewing documentation, counseling the patient, and discussing with other team members." ASSESSMENT ASSESSMENT Assessment CHF Date of Service: Nov 04, 2024 Billing Provider: KALIE MACDONALD MD Common Visit Codes: 71413-OSC/OBS DISCH DAY >30min KALIE MACDONALD MD Nov 04, 2024 08:57
[2024-11-04 09:31] VITALS: BP 134/76; PULSE 57; RESP 16; TEMP 97.9; O2SAT 97
--- NOTE | 2024-11-04 23:00 | DVHPN2 ---
Progress Note - Dictate Date Seen: Nov 04, 2024 Medical Necessity Reason Pt with a Central, PICC or Fol: No Subjective Patient was seen and evaluated in follow up. Patient has no new complaints at this time. Patient denies any cardiac symptoms. Patient is cardiac stable for discharge. Telemetry reviewed. vital signs Vital Sign Date Time Temp Pulse Resp B/P (MAP) Pulse Ox O2 Delivery O2 Flow Rate FiO2 11/04/24 09:31 97.9 57 16 97 11/04/24 09:20 105/61 11/04/24 08:00 Room Air* 0 21 Total Intake and Output 11/03/24 11/03/24 11/04/24 15:00 23:00 07:00 Intake Total 750 ml Balance 750 ml objective GENERAL: Alert and oriented x 3. No acute distress. EYES: PERRL, EOMI. Anicteric. HENT: Moist mucous membranes. LUNGS: Clear to auscultation bilaterally. CARDIOVASCULAR: Regular rate and rhythm. ABDOMEN: Soft, nontender and nondistended. EXTREMITIES: No edema. NEUROLOGIC: No focal neurological deficits. SKIN: Warm, dry. laboratory and microbiology Laboratory Tests 11/03/24 06:23 11/03/24 06:03 Test 11/03/24 06:03 Range/Units Serum Glucose 127 H 74-106 mg/dL Problem List NSTEMI. Coronary artery disease status post PTCA X 2 CRUZITO (on Brilinta and aspirin). Recent ST elevation myocardial infarction. Acute on chronic HFrEF, NYHA class II. Hypertension. Type 2 diabetes mellitus. Dietary noncompliance. Assessment/Plan Continued all current supportive medical care. Morphine and [place] for pain management. Aspirin, Lipitor, Brilinta. Lisinopril, Coreg. Diuretics with Lasix. Nitro SL. Additional plan as per the hospital course. Plan discussed with: Patient DIDI SWANSON MD Nov 04, 2024 13:22
== END 2024-11-04 11:37 | disposition home or self-care (01) | DRG 280 ==
LOC: ER 22:42 → OVERFLOW 11-02 03:38 → TELE-WESTW 11-02 10:08
PROVIDERS: ADMIT Internal Medicine; ATTEND Internal Medicine
DX: I11.0 Hypertensive heart disease with heart failure (principal); I50.23 Acute on chronic systolic (congestive) heart failure; I21.4 Non-ST elevation (NSTEMI) myocardial infarction; E87.1 Hypo-osmolality and hyponatremia; E11.9 Type 2 diabetes mellitus without complications; I25.5 Ischemic cardiomyopathy; E66.9 Obesity, unspecified; I25.10 Atherosclerotic heart disease of native coronary artery without angina pectoris; Z68.22 Body mass index [BMI] 22.0-22.9, adult; Z98.61 Coronary angioplasty status; Z91.119 Patient's noncompliance with dietary regimen due to unspecified reason; Z79.4 Long term (current) use of insulin; Z79.82 Long term (current) use of aspirin; Z79.899 Other long term (current) drug therapy; Z90.49 Acquired absence of other specified parts of digestive tract
CPT/HCPCS: 36415; 71045; 80048; 80053; 80307; 81001; 82962; 83880; 84484; 85025; 93005; 93306; 96374; 96375; 99291; G0378; J1815

== ENCOUNTER 2024-11-05 12:05 | Emergency (ER) | payer OTHER ==
[~2024-11-05] VITALS: Ht 180.3 cm; Wt 84.3 kg
[~2024-11-05 12:05] MED LIST changes: +FURO1TAB31 PO; +METF-1145 PO; -METF-490 PO
[2024-11-05 12:10] VITALS: TEMP 97.3
--- NOTE | 2024-11-05 12:34 | ECG ---
[facility] Test Date: 2024-11-05 Test Time: 12:32:13 Pat Name: NADIRA JIMÉNZE Department: ED Room: Gender: M Implementation Technician: MARK ANTHONY : 1950 Requested By: AMY BOO Order Number: [id number] Reading MD: Jero Casillas Measurements Intervals [place] Rate: 66 P: -31 OR: 188 QRS: -66 QRSD: 102 T: 216 QT: 450 QTc: 472 Interpretive Statements Sinus rhythm Left anterior fascicular block Anteroseptal infarct, age indeterminate Lateral leads are also involved Electronically Signed On 11-05-2024 19:19:43 PDT by Jero Casillas Please click the below link to view image of tracing.
[2024-11-05 12:40] VITALS: BP 86/57; PULSE 66; RESP 17; O2SAT 100
--- NOTE | 2024-11-05 12:51 | ED.PDOC ---
History of Present Illness HPI Comments 74-year-old male presents to the ER with prior medical history of CAD, CHF, diabetes, gallstones, hypertension, mi: Surgical history of PTCA last week x2 by Dr. Casillas and the chief complaint of hypotension. Patient reports on going to [place] for his insulin due from him getting insulin shots at the facility, when they checks the patient's blood pressure and it was low. [place] sent the patient to the ER [facility] an in triage the patient had a blood pressure of 80/48. Blood pressure was 150. Patient notes that he did have an appointment for his insulin at [place]. Denies chills, fever, N/V/D, SOB, CP. No other associated symptoms, modifiers, recent injuries or sick contacts present at this time. Chief Complaint: Low Blood Pressure Time Seen by MD: 12:45 Reviewed Notes: Nurses Notes, Medications, Allergies Allergies: Coded Allergies: NO KNOWN ALLERGIES (Unverified , 10/20/24) Home Meds Active Scripts Furosemide (Lasix) 40 Mg Tab, 40 MG PO DAILY, #30 TAB Prov:KALIE MACDONALD MD 11/03/24 Lancets (Freestyle Lancets) Lancets Mis, AC XX TID, #200 Check blood sugar 3 times a day Prov:PANCHO DENNEY 10/25/24 Blood Glucose Monitoring Suppl (D-Care Glucometer Kit/Glu W/Device) 1 Kit Kit, KIT XX TID, #1 Check blood sugar 3 times a day Prov:PANCHO DENNEY 10/25/24 Empagliflozin (Jardiance) 10 Mg Tab, 10 MG PO DAILY for 30 Days, #30 TAB 1 Refill Prov:PANCHO DENNEY 10/25/24 Metoprolol Succinate (Toprol Xl) 25 Mg Tab, 1 TAB PO DAILY for 30 Days, #30 TAB 1 Refill Prov:PANCHO DENNEY 10/25/24 Lisinopril (Lisinopril) 10 Mg Tab, 5 MG PO DAILY for 30 Days, #15 TAB 1 Refill Prov:PANCHO DENNEY 10/25/24 Atorvastatin Calcium (ATORVASTATIN CALCIUM) 80 Mg Tab, 1 TAB PO DAILY for 30 Days, #30 TAB 3 Refills Prov:PANCHO DENNEY 9/11/25 Ticagrelor Base (BRILINTA) 90 Mg Tab, 90 MG PO BID for 30 Days, #60 TAB 2 Refills Prov:PANCHO DENNEY RESIDENT 10/25/24 Aspirin (Aspirin Low Dose) 81 Mg Chw, 1 TAB PO DAILY for 30 Days, #30 TAB 3 Refills Prov:PANCHO DENNEY RESIDENT 10/25/24 Reported Medications Metformin Hydrochloride (Metformin Hcl Er) 500 Mg Tab, 2 TAB PO BID 11/02/24 Information Source: Patient Mode of Arrival: Ambulatory Severity: Moderate Timing: Hours Duration: Since onset, Hours Prehospital treatment: None Past Medical History PAST MEDICAL HISTORY: CAD, CHF, DM, Gallstones, HTN, VT Surgical History: PTCA (X2, placed last week by ) Family History Family History: Reviewed,noncontributory to illness, Unknown Social History Smoker: Non-Smoker Alcohol: Denies ETOH Use Drugs: Denies Drug Use Lives In: Home Constitutional: reports: others (Hypotensive); denies: chills, diaphoresis, fatigue, fever, malaise, sweats, weakness EENTM: denies: blurred vision, double vision, ear bleeding, ear discharge, ear drainage, ear pain, ear ringing, eye pain, eye redness, hearing loss, mouth pain, mouth swelling, nasal discharge, nose bleeding, nose congestion, nose pain, photophobia, tearing, throat pain, throat swelling, voice changes, others Respiratory: denies: cough, hemoptysis, orthopnea, SOB at rest, shortness of breath, SOB with excertion, stridor, wheezing, others Cardiovascular: denies: chest pain, dizzy spells, diaphoresis, Dyspnea on exertion, edema, irregular heart beat, left arm pain, lightheadedness, palpitations, PND, syncope, others Gastrointestinal: denies: abdomen distended, abdominal pain, blood streaked bowels, constipated, diarrhea, dysphagia, difficulty swallowing, hematemesis, melena, nausea, poor appetite, poor fluid intake, rectal bleeding, rectal pain, vomiting, others Genitourinary: denies: burning, dysuria, flank pain, frequency, hematuria, incontinence, penile discharge, penile sore, pain, testicle pain, testicle swelling, urgency, others Neurological: denies: dizziness, fainting, headache, left sided numbness, left sided weakness, numbness, paresthesia, pre-existing deficit, right sided numbness, right sided weakness, seizure, speech problems, tingling, tremors, weakness, others Musculoskeletal: denies: back pain, gout, joint pain, joint swelling, muscle pain, muscle stiffness, neck pain, others Integumetry: denies: bruises, change in color, change in hair/nails, dryness, laceration, lesions, lumps, rash, wounds, others Allergic/Immunocompromised: denies: Difficulty Healing, Frequent Infections, Hives, Itching, others Hematologic/Lymphatic: denies: anemia, blood clots, easy bleeding, easy bruising, swollen glands, others Endocrine: denies: excessive hunger, excessive sweating, excessive thirst, excessive urination, flushing, intolerance to cold, intolerance to heat, unexplained weight gain, unexplained weight loss, others Psychiatric: denies: anxiety, bipolar disorder, depression, hopeless, panic disorder, schizophrenia, sleepless, suicidal, others All Other Systems: Reviewed and Negative Physical Exam General Appearance: No Apparent Distress, Normal HEENT: Normal ENT Inspection, Pharynx Normal, TMs Normal Neck: Full Range of Motion, Non-Tender, Normal, Normal Inspection Respiratory: Chest Non-Tender, Lungs Clear, No Accessory Muscle Use, No Respiratory Distress, Normal Breath Sounds Cardiovascular: No Edema, No JVD, No Murmur, No Gallop, Normal Peripheral Pulses, Regular Rate/Rhythm Breast Exam: Deferred Gastrointestinal: No Organomegaly, Non Tender, No Pulsatile Mass, Normal Bowel Sounds, Soft Genitalia: Deferred Pelvic: Deferred Rectal: Deferred Extremities: No calf tenderness, Normal capillary refill, Normal inspection, Normal range of motion, Non-tender, No pedal edema Musculoskeletal : Apperance: Normal Neurologic: Alert, outside sales associate II-XII nml as Tested, No Motor Deficits, Normal Affect, Normal Mood, No Sensory Deficits Cerebellar Function: Normal Reflexes: Normal Skin: Dry, Normal Color, Warm Lymphatic: No Adenopathy Was a procedure done? Was a procedure done?: No X-Ray, Labs, Meds, VS Vital Signs Date Time Temp Pulse Resp B/P (MAP) Pulse Ox O2 Delivery O2 Flow Rate FiO2 11/05/24 12:10 97.3 74 19 80/48 98 97.3 Lab Test 11/05/24 12:18 Range/Units POC Glucose 150 H 70-106 mg/dl Time of 1ST Reevaluation: 13:15 Reevaluation 1ST: Unchanged Patient Education/Counseling: Diagnosis, Treatment, Prognosis Family Education/Counseling: No Family Present SEPSIS Sepsis Screen Date sepsis recognized/suspect: Nov 05, 2024 Time Sepsis recognized/suspect: 1210 Recent Procedure: No On Antibiotic Therapy: No Respiratory Rate >20: No Heart Rate >90: No Temp<36 C (96.8 F) or >38.3 C: No SBP <90 or MAP <65 mmHG: No New Acute Mental Status Change: No Is the patient on CPAP, BIPAP,: No Physician Orders Basic Metabolic Panel (11/05/24 12:30) Complete Blood Count (11/05/24 12:30) Troponin-I Hs (11/05/24 12:30) Urinalysis (11/05/24 12:30) Chest Portable (11/05/24 12:30) Troponin-I Hs (11/05/24 13:30) Troponin-I Hs (11/05/24 15:30) Electrocardigram (11/05/24 13:30) Electrocardigram (11/05/24 15:30) Vital Signs Date Time Temp Pulse Resp B/P (MAP) Pulse Ox O2 Delivery O2 Flow Rate FiO2 11/05/24 12:10 97.3 74 19 80/48 98 97.3 Critical Care Note Critical Care Time?: No Stability Stability form required: No I personally scribed for AMY BOO MD ([email or web address]) on 11/05/24 at 12:51. Electronically submitted by Gian Street ([email or web address]). AMY BOO MD Nov 05, 2024 12:51
[2024-11-05 13:30] LABS: Nucleated Red Blood Cells % 0.0 %
[2024-11-05 13:32] LABS: Hematocrit 40.1 % (41.0-53.0); Hemoglobin 14.7 g/dL (13.5-17.5); Mean Corpuscular Hemoglobin 36.5 pg (28.0-32.0); Mean Corpuscular Volume 99.7 fL (80.0-100.0)
[2024-11-05 13:36] LABS: Potassium 4.4 mmol/L (3.5-5.1)
[2024-11-05 13:37] LABS: Anion Gap 12 (5-15); Calcium 9.3 mg/dL (8.7-10.4); Carbon Dioxide 27 mmol/L (20-31)
[2024-11-05 13:38] LABS: Chloride 94 mmol/L (98-107); Sodium 133 mmol/L (136-145)
[2024-11-05 13:39] LABS: Urine Protein, UAD Negative (Negative)
[2024-11-05 13:42] LABS: BUN/Creatinine Ratio 24.7 (10.0-20.0)
[2024-11-05 13:43] LABS: Blood Urea Nitrogen 36 mg/dL (9-23); Glucose 168 mg/dL (74-106)
[2024-11-05] MEDS ORDERED: SODIUM CHLORIDE 0.9% 1,000 ML IV ONE (14:00)
--- NOTE | 2024-11-05 14:32 | DVH ---
CHEST RADIOGRAPH Indication: weakness Technique: Single frontal view of the chest was obtained COMPARISON: XY CHEST XRAY 1 VIEW on DOS: 11/01/24, XY CHEST PORTABLE on DOS: 10/22/24, XY CHEST PORTABLE on DOS: 10/21/24, XY CHEST XRAY 1 VIEW on DOS: 10/20/24, XY CHEST XRAY 1 VIEW on DOS: 10/20/24 FINDINGS: Lines and Tubes: None Lungs: Clear Pleura: No effusion. No pneumothorax. Cardiomediastinal contours: Unremarkable Bones: Unremarkable IMPRESSION: No acute disease.
== END 2024-11-05 14:39 | disposition left against medical advice (07) ==
LOC: ER 12:05
DX: I10 Essential (primary) hypertension (principal)
CPT/HCPCS: 36415; 71045; 80048; 81001; 82947; 82962; 84484; 85025; 93005

== ENCOUNTER 2024-11-09 13:47 | Emergency (ER) | payer OTHER ==
[~2024-11-09] VITALS: Ht 180.3 cm; Wt 69.9 kg
--- NOTE | 2024-11-09 14:08 | ECG ---
[facility] Test Date: 2024-11-09 Test Time: 14:00:01 Pat Name: NADIRA JIMÉNEZ Department: Room: Gender: M Art Handler: ANTON : 1950 Requested By: SAMI OCHOA Order Number: [id number] Reading MD: Jero Casillas Measurements Intervals [place] Rate: 74 P: 0 AR: 166 QRS: -54 QRSD: 103 T: 213 QT: 387 QTc: 430 Interpretive Statements Sinus rhythm Atrial premature complexes in couplets LAD, consider left anterior fascicular block Anterior infarct, recent Lateral leads are also involved Electronically Signed On 11-15-2024 21:48:35 PDT by Jero Casillas Please click the below link to view image of tracing.
--- NOTE | 2024-11-09 14:30 | ED.PDOC ---
HPI Comments This is a 74 year-old male, with a Hx of STEMI, DM, CAD, CHF, and HTN, who presents to the ED with a chief complaint of general weakness as of today. Patient additionally reports noticing low blood pressure X2 days ago. Patient was seen at [facility] on 10/20/24 chest pain and STEMI. Patient has a coronary stent in place as of X1 month ago. Patient has no further complaints at this time and otherwise denies LOC, dizziness, N/V/D, headache, chest pain, or palpitations. Chief Complaint: General Weakness Time Seen by MD: 14:03 Reviewed Notes: Medications, Allergies Allergies: Coded Allergies: NO KNOWN ALLERGIES (Unverified , 10/20/24) Home Meds Active Scripts Furosemide (Lasix) 40 Mg Tab, 40 MG PO DAILY, #30 TAB Prov:KALIE MACDONALD MD 11/03/24 Lancets (Freestyle Lancets) Lancets Mis, AC XX TID, #200 Check blood sugar 3 times a day Prov:PANCHO DENNEY 10/25/24 Blood Glucose Monitoring Suppl (D-Care Glucometer Kit/Glu W/Device) 1 Kit Kit, KIT XX TID, #1 Check blood sugar 3 times a day Prov:PANCHO DENNEY 10/25/24 Empagliflozin (Jardiance) 10 Mg Tab, 10 MG PO DAILY for 30 Days, #30 TAB 1 Refill Prov:PANCHO DENNEY 10/25/24 Metoprolol Succinate (Toprol Xl) 25 Mg Tab, 1 TAB PO DAILY for 30 Days, #30 TAB 1 Refill Prov:PANCHO DENNEY 10/25/24 Lisinopril (Lisinopril) 10 Mg Tab, 5 MG PO DAILY for 30 Days, #15 TAB 1 [facility]24 Atorvastatin Calcium (ATORVASTATIN CALCIUM) 80 Mg Tab, 1 TAB PO DAILY for 30 Days, #30 TAB 3 Refills Prov:PANCHO DENNEY 10/25/24 Ticagrelor Base (BRILINTA) 90 Mg Tab, 90 MG PO BID for 30 Days, #60 TAB 2 Refills Prov:PANCHO DENNEY 10/25/24 Aspirin (Aspirin Low Dose) 81 Mg Chw, 1 TAB PO DAILY for 30 Days, #30 TAB 3 Refills Prov:PANCHO DENNEY RESIDENT 10/25/24 Reported Medications Metformin Hydrochloride (Metformin Hcl Er) 500 Mg Tab, 2 TAB PO BID 11/02/24 Information Source: Patient Mode of Arrival: Ambulatory Severity: Moderate Timing: Hours Duration: Since onset Prehospital treatment: None Onset: At Rest, With Light Exertion, With Heavy Exertion Associated Signs and Symptoms: Other (gen weak) Past Medical History PAST MEDICAL HISTORY: CAD, CHF, DM, Gallstones, HTN, [place] Surgical History: PTCA Family History Family History: Reviewed,noncontributory to illness, Unknown Social History Smoker: Non-Smoker Alcohol: Denies ETOH Use Drugs: Denies Drug Use Lives In: Home Constitutional: reports: weakness; denies: chills, diaphoresis, fatigue, fever, malaise, sweats, others EENTM: denies: blurred vision, double vision, ear bleeding, ear discharge, ear drainage, ear pain, ear ringing, eye pain, eye redness, hearing loss, mouth pain, mouth swelling, nasal discharge, nose bleeding, nose congestion, nose pain, photophobia, tearing, throat pain, throat swelling, voice changes, others Respiratory: denies: cough, hemoptysis, orthopnea, SOB at rest, shortness of breath, SOB with excertion, stridor, wheezing, others Cardiovascular: denies: chest pain, dizzy spells, diaphoresis, Dyspnea on exertion, edema, irregular heart beat, left arm pain, lightheadedness, palpitations, PND, syncope, others Gastrointestinal: denies: abdomen distended, abdominal pain, blood streaked bowels, constipated, diarrhea, dysphagia, difficulty swallowing, hematemesis, melena, nausea, poor appetite, poor fluid intake, rectal bleeding, rectal pain, vomiting, others Genitourinary: denies: burning, dysuria, flank pain, frequency, hematuria, incontinence, penile discharge, penile sore, pain, testicle pain, testicle swelling, urgency, others Neurological: denies: dizziness, fainting, headache, left sided numbness, left sided weakness, numbness, paresthesia, pre-existing deficit, right sided numbn ess, right sided weakness, seizure, speech problems, tingling, tremors, weakness, others Musculoskeletal: denies: back pain, gout, joint pain, joint swelling, muscle pain, muscle stiffness, neck pain, others Integumetry: denies: bruises, change in color, change in hair/nails, dryness, laceration, lesions, lumps, rash, wounds, others Allergic/Immunocompromised: denies: Difficulty Healing, Frequent Infections, Hives, Itching, others Hematologic/Lymphatic: denies: anemia, blood clots, easy bleeding, easy bruising, swollen glands, others Endocrine: denies: excessive hunger, excessive sweating, excessive thirst, excessive urination, flushing, intolerance to cold, intolerance to heat, unexplained weight gain, unexplained weight loss, others Psychiatric: denies: anxiety, bipolar disorder, depression, hopeless, panic disorder, schizophrenia, sleepless, suicidal, others All Other Systems: Reviewed and Negative Physical Exam General Appearance: Moderate Distress HEENT: Normal ENT Inspection, Pharynx Normal, TMs Normal Neck: Full Range of Motion, Non-Tender, Normal, Normal Inspection Respiratory: Chest Non-Tender, Lungs Clear, No Accessory Muscle Use, No Respiratory Distress, Normal Breath Sounds Cardiovascular: No Edema, No JVD, No Murmur, No Gallop, Normal Peripheral Pulses, Regular Rate/Rhythm Breast Exam: Deferred Gastrointestinal: No Organomegaly, Non Tender, No Pulsatile Mass, Normal Bowel Sounds, Soft Genitalia: Deferred Pelvic: Deferred Rectal: Deferred Extremities: No calf tenderness, Normal capillary refill, Normal inspection, Normal range of motion, Non-tender, No pedal edema Musculoskeletal : Apperance: Normal Neurologic: Alert, deputy sheriff/investigator II-XII nml as Tested, No Motor Deficits, Normal Affect, Normal Mood, No Sensory Deficits Cerebellar Function: Normal Reflexes: Normal Skin: Dry, Normal Color, Warm Peripheral Pulses: 3+ Radial (R), 3+ Radial (L) Lymphatic: No Adenopathy EKG EKG : Pulse Rate (adult): 74 [place]: LAD Cardiac Rhythm: NSR Block: None Hypertrophy: None ST: Ant, Infarct Comments Sinus rhythm Atrial premature complexes in couplets LAD, consider left anterior fascicular block Anterior infarct, recent Lateral leads are also involved Was a procedure done? Was a procedure done?: No CP Differential Dx Differential Diagnosis: A-fib, A-Flutter, Angina, Anxiety / Panic Attack, Atrial Dysrhythmia, Electrolyte Disorder, Hyperthyroidism, Sinus Tachycardia Differential Diagnosis: CHF, HTN Essential Differential Diagnosis: Chest Wall Pain, Gastritis X-Ray, Labs, Meds, VS Vital Signs Date Time Temp Pulse Resp B/P (MAP) Pulse Ox O2 Delivery O2 Flow Rate FiO2 11/09/24 17:05 Room Air* 0 21 11/09/24 16:45 71 11/09/24 14:51 70 11/09/24 14:30 74 11/09/24 14:00 74 11/09/24 13:49 97.9 82 18 115/79 98 97.9 Lab Test 11/09/24 16:26 11/09/24 16:19 11/09/24 14:50 11/09/24 14:05 Range/Units Lactic Acid Level 2.2 *H 2.4 *H 0.4-2.0 mmol/L Troponin I High Sensitivity 73 *H 76 *H 73 *H </=54 ng/L Urine Color Pending Urine Clarity Pending Urine pH Pending Urine Specific [place] Pending Urine Protein Pending Urine Ketones Pending Urine Blood Pending Urine Nitrite Pending Urine Bilirubin Pending Urine Urobilinogen Pending Urine Leukocyte Esterase Pending Urine RBC Pending Urine Microscopic WBC Pending Urine Squamous Epithelial Cells Pending Urine Bacteria Pending Urine Glucose Pending White Blood Count 6.8 4.4-10.8 10^3/uL Red Blood Count 3.98 L 4.5-5.90 10^6/uL Hemoglobin 14.2 13.5-17.5 g/dL Hematocrit 39.9 L 41.0-53.0 % Mean Corpuscular Volume 100.2 H 80.0-100.0 fL Mean Corpuscular Hemoglobin 35.8 H 28.0-32.0 pg Mean Corpuscular Hemoglobin Concent 35.7 32.0-36.0 g/dL Red Cell Distribution Width 14.8 H 11.8-14.3 % Platelet Count 248 140-450 10^3/uL Mean Platelet Volume 7.8 6.9-10.8 fL Neutrophils (%) (Auto) 78.9 37.0-80.0 % Lymphocytes (%) (Auto) 12.1 10.0-50.0 % Monocytes (%) (Auto) 8.3 0.0-12.0 % Eosinophils (%) (Auto) 0.5 0.0-7.0 % Basophils (%) (Auto) 0.2 0.0-2.0 % Neutrophils # (Auto) 5.3 1.6-8.6 10 ^3/uL Lymphocytes # (Auto) 0.8 0.4-5.4 10 ^3/uL Monocytes # (Auto) 0.6 0-1.3 10 ^3/uL Eosinophils # (Auto) 0 0-0.8 10 ^3/uL Basophils # (Auto) 0 0-0.2 10 ^3/uL Nucleated Red Blood Cells 0.0 % Prothrombin Time 12.0 H 9.3-11.8 sec Prothrombin Time INR 1.15 0.9-1.15 Activated Partial Thromboplast Time 25.4 24.5-34.5 SEC Sodium Level 134 L 136-145 mmol/L Potassium Level 4.5 3.5-5.1 mmol/L Chloride Level 98 98-107 mmol/L Carbon Dioxide Level 26 20-31 mmol/L Anion Gap 10 5-15 Blood Urea Nitrogen 20 9-23 mg/dL Creatinine 1.37 H 0.700-1.30 mg/dL Glomerular Filtration Rate Calc 55 >90 mL/min BUN/Creatinine Ratio 14.6 10.0-20.0 Serum Glucose 198 H 74-106 mg/dL Calcium Level 9.1 8.7-10.4 mg/dL Total Bilirubin 1.3 H 0.2-1.0 mg/dL Aspartate Amino Transferase (AST) 29 13-40 U/L Alanine Aminotransferase (ALT) 28 7-40 U/L Alkaline Phosphatase 67 46-116 U/L Total Protein 6.4 5.7-8.2 g/dL Albumin 4.0 3.2-4.8 g/dL Current Medications Medications (Trade) Dose Ordered Sig/Phyllis Route Start Time Stop Time Status Last Admin Sodium Chloride 250 ml @ 250 mls/hr Q1H ONCE IV 11/09/24 14:30 11/09/24 15:29 DC 11/09/24 15:09 Cefepime HCl 50 ml @ 50 mls/hr ONCE ONCE IV 11/09/24 15:15 11/09/24 16:14 DC 11/09/24 15:41 Patient alert. Came in because of generalized weakness. Reviewed his previous visit. Vitals stable. EKG reviewed does show changes. Spoke with Cardiology. Cardiology will follow the patient. Blood sugar elevated. Cardiac marker elevated. Lactic acid elevated. Establish intravenous access. Was given fluids. Was given cefepime. Blood sugar treated with fluids. Reviewed his previous visit. Explained to the patient. Continue monitoring. Images Reviewed?: Images reviewed and evaluated by me Time of 1ST Reevaluation: 15:13 Reevaluation 1ST: Unchanged Patient Education/Counseling: Diagnosis, Treatment Family Education/Counseling: No Family Present SEPSIS Sepsis Screen Date sepsis recognized/suspect: Nov 09, 2024 Time Sepsis recognized/suspect: 1350 Recent Procedure: No On Antibiotic Therapy: No Respiratory Rate >20: No Heart Rate >90: No Temp<36 C (96.8 F) or >38.3 C: No SBP <90 or MAP <65 mmHG: No New Acute Mental Status Change: No Is the patient on CPAP, BIPAP,: No Physician Orders Electrocardigram (11/09/24 17:06) Urinalysis (11/09/24 14:19) Chest Portable (11/09/24 14:19) Accucheck (11/09/24 14:19) Blood Culture (11/09/24 14:19) Cefepime 1gm/50ml (Maxipime 1gm/50ml) (11/09/24 22:00) Notify Md If Map <65 Or Bp<90 (11/09/24 14:19) If Map<65 Start Vasopressor (11/09/24 14:19) Sepsis Reassesment After Fluid (11/09/24 15:19) Vital Signs Date Time Temp Pulse Resp B/P (MAP) Pulse Ox O2 Delivery O2 Flow Rate FiO2 11/09/24 17:05 Room Air* 0 21 11/09/24 16:45 71 11/09/24 14:51 70 11/09/24 14:30 74 11/09/24 14:00 74 11/09/24 13:49 97.9 82 18 115/79 98 97.9 Laboratory Tests Test 11/09/24 14:05 11/09/24 16:26 Lactic Acid Level 2.4 mmol/L (0.4-2.0) *H 2.2 mmol/L (0.4-2.0) *H White Blood Count 6.8 10^3/uL (4.4-10.8) Medications Medications Dose Ordered Sig/Phyllis Route Start Time Stop Time Status Last Admin Dose Admin Cefepime HCl 50 ml @ 50 mls/hr ONCE ONCE IV 11/09/24 15:15 11/09/24 16:14 DC 11/09/24 15:41 Sodium Chloride 250 ml @ 250 mls/hr Q1H ONCE IV 11/09/24 14:30 11/09/24 15:29 DC 11/09/24 15:09 Departure 1 Departure Time of Disposition: 17:31 Impression: Primary Impression: Uncontrolled diabetes mellitus Qualified Codes: E13.65 - Other specified diabetes mellitus with hyperglycemia Additional Impressions: Generalized weakness Demand ischemia Disposition: ADMITTED INPATIENT Admit to: Med Surg Condition: Guarded Critical Care Note Critical Care Time?: Yes (90 min-critical care time only) Stability Stability form required: No Heart Score Heart Score: Heart Score Response (Comments) Value History Moderate Suspicious 1 EKG Normal 0 Age >65 2 Risk Factors >3 or Hx ASHD 2 Troponin >3 x's Normal limit 2 Total 7 I personally scribed for SAMI OCHOA MD ([email or web address]) on 11/09/24 at 14:30. Electronically submitted by Vicenta Whiteside ([email or web address]). I personally scribed for SAMI OCHOA MD ([email or web address]) on 11/09/24 at 14:32. Electronically submitted by Vicenta Whiteside ([place]). I personally scribed for SAMI OCHOA MD ([email or web address]) on 11/09/24 at 14:59. Electronically submitted by Vicenta Whiteside ([place]). SAMI OCHOA MD Nov 09, 2024 14:30
[2024-11-09 14:37] LABS: Hemoglobin 14.2 g/dL (13.5-17.5); Mean Corpuscular Volume 100.2 fL (80.0-100.0); Nucleated Red Blood Cells % 0.0 %
[2024-11-09 14:39] LABS: Hematocrit 39.9 % (41.0-53.0); Mean Corpuscular Hemoglobin 35.8 pg (28.0-32.0)
--- NOTE | 2024-11-09 14:52 | ECG ---
[facility] Test Date: 2024-11-09 Test Time: 14:51:18 Pat Name: NADIRA JIMÉNEZ Department: Room: Gender: M Sample Room Supervisor: BILL : 1950 Requested By: SAMI OCHOA Order Number: [id number] Reading MD: Jero Casillas Measurements Intervals [place] Rate: 70 P: -37 [place]: 180 QRS: -60 QRSD: 103 T: 241 QT: 462 QTc: 499 Interpretive Statements Sinus rhythm Atrial premature complex Left anterior fascicular block Anterior infarct, recent Abnormal T, consider ischemia, diffuse leads Lateral leads are also involved Electronically Signed On 11-15-2024 21:49:03 PDT by Jero Casillas Please click the below link to view image of tracing.
[2024-11-09 14:57] LABS: Alanine Aminotransferase 28 U/L (7-40); Alkaline Phosphatase 67 U/L (46-116); Anion Gap 10 (5-15); BUN/Creatinine Ratio 14.6 (10.0-20.0); Blood Urea Nitrogen 20 mg/dL (9-23); Calcium 9.1 mg/dL (8.7-10.4); Carbon Dioxide 26 mmol/L (20-31); Chloride 98 mmol/L (98-107); Potassium 4.5 mmol/L (3.5-5.1); Total Protein 6.4 g/dL (5.7-8.2)
[2024-11-09 14:58] LABS: Albumin 4.0 g/dL (3.2-4.8)
[2024-11-09 14:59] LABS: INR 1.15 (0.9-1.15); Partial Thromboplastin Time 25.4 SEC (24.5-34.5); Prothrombin Time 12.0 sec (9.3-11.8)
--- NOTE | 2024-11-09 14:59 | DVH ---
CHEST RADIOGRAPH Indication: sob Technique: Single frontal view of the chest was obtained COMPARISON: XY CHEST PORTABLE on DOS: 11/05/24, XY CHEST XRAY 1 VIEW on DOS: 11/01/24, XY CHEST PORTABL E on DOS: 10/22/24, XY CHEST PORTABLE on DOS: 10/21/24, XY CHEST XRAY 1 VIEW on DOS: 10/20/24 FINDINGS: Lines and Tubes: None Lungs: Clear Pleura: No effusion. No pneumothorax. Cardiomediastinal contours: Unremarkable Bones: Unremarkable IMPRESSION: No acute disease.
[2024-11-09 15:00] LABS: Bilirubin, Total 1.3 mg/dL (0.2-1.0); Glucose 198 mg/dL (74-106); Sodium 134 mmol/L (136-145)
[2024-11-09 15:02] LABS: Lactic Acid w/Reflex 2.4 mmol/L (0.4-2.0)
[2024-11-09] MEDS: SODIUM CHLORIDE 0.9% 250 ML IV ONE (15:09)
[2024-11-09] MEDS: CEFEPIME 1GM/50ML 50 ML IV ONE (15:41)
[2024-11-09 18:00] LABS: Urine Protein, UAD Negative (Negative)
--- NOTE | 2024-11-09 18:57 | ECG ---
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
[2024-11-09 20:22] VITALS: PULSE 62; RESP 18; O2SAT 97
[2024-11-09] MEDS: CEFEPIME 1GM/50ML 50 ML IV SCH (22:00)
[2024-11-09 22:33] VITALS: BP 115/70; PULSE 66; RESP 20; TEMP 98.1; O2SAT 97
== END 2024-11-09 18:24 | disposition short-term general hospital (02) ==
LOC: ER 13:47
DX: E11.65 Type 2 diabetes mellitus with hyperglycemia (principal); E53.1 Pyridoxine deficiency; R53.1 Weakness; I99.8 Other disorder of circulatory system; I11.0 Hypertensive heart disease with heart failure; I50.9 Heart failure, unspecified; I21.A1 Myocardial infarction type 2; Z79.82 Long term (current) use of aspirin; Z79.84 Long term (current) use of oral hypoglycemic drugs; Z79.899 Other long term (current) drug therapy; Z95.5 Presence of coronary angioplasty implant and graft
CPT/HCPCS: 36415; 71045; 80053; 81001; 83605; 84484; 85025; 85610; 85730; 87040; 93005; 96365; 96366; 99285; J0692; 96367; 96376